=== PATIENT | female | born 1945 | race African-American/Black ===

== ENCOUNTER 2019-06-30 18:15 | Emergency (ER) | payer MEDICARE, MEDICAID ==
[~2019-06-30] VITALS: Ht 165.1 cm; Wt 91.2 kg
--- NOTE | 2019-06-30 18:30 | NUR ---
ED Nurse Note: Patient walked in ED from home accompanied by daughter c/o SOB, productive cough, and diarrhea x4 days. Patient aox4. Patient denies n/v. Placed patient in hospital gown, cont. cardiac tech showing sinus rhythm with HR 98, cont. pulse ox saturating 97% on room air. Exp wheezing noted. Patient denies history of asthma and/or COPD. Patient states she has history of HTN and was a smoker but "quit years ago". ERMD present at bedside.
[2019-06-30 18:36] VITALS: BP 186/75
--- NOTE | 2019-06-30 18:36 | Emergency Room Report ---
History of Present Illness General Chief Complaint: Dyspnea/Respdistress Source: Patient Present Illness HPI Disclaimer: Please note that this report is being documented using [employer] technology. This can lead to erroneous entry secondary to incorrect interpretation by the dictating instrument. HPI: 74-year-old female history of COPD noncompliant with medications, former smoker presents for evaluation of shortness of breath, cough and diarrhea. Symptoms present for 4 days. Notes intermittent chills and sweats but denies objective fevers. Nonproductive cough and progressive worsening shortness of breath. Denies chest pain or vomiting or nausea. Reports watery diarrhea for the past 4 days. Believe she has the flu. Denies myalgias. Did not get a flu shot this year. States she has a diagnosis COPD but does not use any medications or require supplemental oxygen. No longer smoking. No known sick contacts. No other complaints at this time. PMH: COPD, hypertension PSH: Denies Allergies: Denies Social Hx: Former smoker Allergies: Coded Allergies: No Known Allergies (Unverified , 06/30/19) Patient History Last Menstrual Period: na Nursing Documentation-PMH Past Medical History: No History, Except For Hx Hypertension: Yes Review of Systems All Other Systems: negative except mentioned in HPI Physical Exam Vital Signs Date Time Temp Pulse Resp B/P (MAP) Pulse Ox O2 Delivery O2 Flow Rate FiO2 06/30/19 18:16 97.7 98 20 181/90 (120) 93 Room Air General: Awake and alert, no acute distress HEENT: NC/AT. EOMI. Cardiovascular: RRR. S1 and S2 normal. No murmur appreciated Resp: Mild tachypnea. Normal work of breathing. Faint expiratory wheezes at the lower bases bilaterally. Abdomen: Abdomen is soft, nondistended. Nontender Skin: Intact. No abrasions, laceration or rash over the exposed skin MSK: Normal tone and bulk. Moving all extremities. No obvious deformity. No unilateral calf swelling or tenderness. Neuro: Awake and alert. Mentating appropriately. Medical Decision Making Diagnostic Impression: Primary Impression: Pneumonia involving right lung ER Course 74-year-old female presents for evaluation of 4 days cough and diarrhea with worsening shortness of breath. Differential includes was not limited to pneumonia, bronchitis, viral syndrome, influenza, ACS, pneumothorax, COPD exacerbation. Given the duration and symptoms of viral syndrome or influenza are most likely and have little concern for cardiac causes or thrombotic pathology. She arrives with stable vital signs, no hypoxia, no tachycardia, normal respiratory rate and no risk factors or clinical symptoms of DVT. Patient will have an x-ray, given breathing treatments and check screening labs as well as an EKG. do not see indication to test for influenza at this time as the patient is out of the Tamiflu window. Laboratory Tests Test 06/30/19 18:40 White Blood Count 17.2 K/UL (4.8-10.8) H Red Blood Count 4.75 M/UL (4.20-5.40) Hemoglobin 12.5 G/DL (12.0-16.0) Hematocrit 36.9 % (37.0-47.0) L Mean Corpuscular Volume 78 FL (80-99) L Mean Corpuscular Hemoglobin 26.4 PG (27.0-31.0) L Mean Corpuscular Hemoglobin Concent 34.0 G/DL (32.0-36.0) Red Cell Distribution Width 10.5 % (11.6-14.8) L Platelet Count 591 K/UL (150-450) H Mean Platelet Volume 5.0 FL (6.5-10.1) L Neutrophils (%) (Auto) 73.6 % (45.0-75.0) Lymphocytes (%) (Auto) 13.9 % (20.0-45.0) L Monocytes (%) (Auto) 9.6 % (1.0-10.0) Eosinophils (%) (Auto) 0.8 % (0.0-3.0) Basophils (%) (Auto) 2.2 % (0.0-2.0) H Sodium Level 131 MMOL/L (136-145) L Potassium Level 4.4 MMOL/L (3.5-5.1) Chloride Level 93 MMOL/L (98-107) L Carbon Dioxide Level 29 MMOL/L (21-32) Anion Gap 9 mmol/L (5-15) Blood Urea Nitrogen 12 mg/dL (7-18) Creatinine 0.9 MG/DL (0.55-1.30) Estimate Glomerular Filtration Rate mL/min (>60) Glucose Level 119 MG/DL (74-106) H Calcium Level 9.0 MG/DL (8.5-10.1) EKG Diagnostic Results EKG Time: 18:56 Rate: normal Rhythm: NSR ST Segments: no acute changes Other Impression Sinus rhythm, left axis deviation, normal intervals, inferior Q waves. No ST segment changes. Rhythm Strip Diag. Results Rhythm Strip Time: 18:56 EP Interpretation: yes Rate: 90s Rhythm: NSR, no PVC's, no ectopy Chest X-Ray Diagnostic Results Chest X-Ray Diagnostic Results : Chest X-Ray Ordered: Yes # of Views/Limited/Complete: 1 View Indication: Shortness of Breath EP Interpretation: Yes Interpretation: other - Concern for right lower lobe infiltrate and possible effusion. Impression: Other - Right-sided infiltrate concerning for pneumonia Electronically Signed by: Electronically signed by Dr. Demarco Cannon Reevaluation Time: 18:57 Last Vital Signs Date Time Temp Pulse Resp B/P (MAP) Pulse Ox O2 Delivery O2 Flow Rate FiO2 06/30/19 18:16 97.7 98 20 181/90 (120) 93 Room Air Reevaluation Impression EKG is nonischemic. Chest x-ray concerning for right-sided lower lobe infiltrate consistent with a community-acquired pneumonia. Labs show leukocytosis without significant shift. This consistent with community- acquired pneumonia likely after a viral syndrome preceding it. Patient is reporting feeling much better after receiving a DuoNeb treatment. Will give azithromycin in the emergency department today and continue on oral azithromycin for the next 4 days. Also I prescribed her an albuterol inhaler and instructed her to follow-up with her PMD for pulmonary function testing and to discuss whether not she needs to continue that albuterol inhaler for possible COPD. She is well-appearing with stable vital signs and reports improvement. She is afebrile. Stable for outpatient follow-up and treatment. We discussed reasons to return to the emergency department with patient and her daughter who is present at bedside as well as proper dosing of Tylenol and Motrin for aches and pains and proper fluid replacement given her recent diarrhea. She will return to the emergency department any new or worsening symptoms. She understands and agrees with this treatment plan will be discharged home. Disposition: HOME, SELF-CARE Condition: Stable Scripts Albuterol Sulfate* (ALBUTEROL SULFATE MDI*) 8.5 Gm Hfa.aer.ad 2 PUFF INH Q4H PRN for cough/wheezing, #1 EA 0 Refills Prov: Demarco Cannon MD 06/30/19 Azithromycin* (ZITHROMAX*) 250 Mg Tablet 250 MG ORAL DAILY for 4 Days, #4 TAB Prov: Demarco Cannon MD 06/30/19 Demarco Cannon MD Jun 30, 2019 18:36
--- NOTE | 2019-06-30 18:38 | NUR ---
ED Nurse Note: xray at bedside
--- NOTE | 2019-06-30 18:40 | NUR ---
ED Nurse Note: IV access established, patient tolerated well. Blood collected and sent to lab.
[2019-06-30] MEDS: Albuterol/Ipratropium 3ml neb HHN SCH ×3 (18:52→19:19)
--- NOTE | 2019-06-30 18:52 | NUR ---
ED Nurse Note: RT at bedside for breathing treatment.
--- NOTE | 2019-06-30 19:00 | NUR ---
HAND-OFF: Report given to GOLDIE Mcdaniel.
[2019-06-30 19:01] LABS: BASOPHILS % (AUTO) 2.2 % (0.0-2.0); EOSINOPHILS % (AUTO) 0.8 % (0.0-3.0); HEMATOCRIT 36.9 % (37.0-47.0); HEMOGLOBIN 12.5 G/DL (12.0-16.0); LYMPHOCYTES % (AUTO) 13.9 % (20.0-45.0); MEAN CORPUSCULAR VOLUME 78 FL (80-99); MONOCYTES % (AUTO) 9.6 % (1.0-10.0); NEUTROPHILS % (AUTO) 73.6 % (45.0-75.0); PLATELET COUNT 591 K/UL (150-450); RED BLOOD COUNT 4.75 M/UL (4.20-5.40); RED CELL DISTRIBUTION WIDTH 10.5 % (11.6-14.8); WHITE BLOOD COUNT 17.2 K/UL (4.8-10.8)
[2019-06-30] MEDS ORDERED: ZITHROMAX250 MG ORAL (19:13)
[2019-06-30] MEDS ORDERED: ALBUTEROL SULF8.5 GM INH (19:13)
[2019-06-30] MEDS ORDERED: Azithromycin 250mg tab ORAL ONE (19:15)
[2019-06-30 19:19] VITALS: BP 186/75
--- NOTE | 2019-06-30 19:20 | NUR ---
ER DISCHARGE NOTE: Patient is cleared to be discharged per ERMD, pt is aox4, on room air, with stable vital signs. accompanied by family member. pt was given dc and prescription instructions, pt was able to verbalize understanding, pt id band and iv site removed without complications. pt is able to ambulate with steady gait. pt took all belongings.
[2019-06-30 19:21] LABS: ANION GAP 9 mmol/L (5-15); BLOOD UREA NITROGEN 12 mg/dL (7-18); CARBON DIOXIDE 29 MMOL/L (21-32); CHLORIDE 93 MMOL/L (98-107); CREATININE 0.9 MG/DL (0.55-1.30); POTASSIUM 4.4 MMOL/L (3.5-5.1); SODIUM 131 MMOL/L (136-145)
--- NOTE | 2019-07-01 10:10 | Diagnostic Imaging Report ---
Indication: Dyspnea Comparison: None A single view chest radiograph was obtained. Findings: Lung volumes are low. There is suggestion of mild right basal atelectasis possibly a small pleural effusion. Heart size is normal. Bones are unremarkable. IMPRESSION: Slightly ill-defined right hemidiaphragm. Atelectasis/pneumonia or small pleural effusion are considerations
== END 2019-06-30 19:20 | disposition home or self-care (01) ==
LOC: EMR 18:58
DX: J18.1 Lobar pneumonia, unspecified organism (principal); I10 Essential (primary) hypertension; J44.9 Chronic obstructive pulmonary disease, unspecified; Z87.891 Personal history of nicotine dependence
CPT/HCPCS: 36415; 71045; 80048; 85025; 93005; 94640; 99284; J7620

== ENCOUNTER 2019-07-04 23:34 | Inpatient (IN) | payer MEDICARE, MEDICAID ==
[~2019-07-04] VITALS: Ht 165.1 cm; Wt 93.0 kg
[~2019-07-04 23:34] MED LIST: ALBUTEROL SULF8.5 GM INH; ZITHROMAX250 MG ORAL
[2019-07-05] VITALS (8 sets, daily range): BP systolic 140–177; BP diastolic 76–103
--- NOTE | 2019-07-05 00:37 | Emergency Room Report ---
History of Present Illness General Chief Complaint: Abdominal Pain Source: Patient, Family Member, Medical Record Present Illness HPI Is a 74-year-old female with history of hypertension. She was told that she has a history of COPD but not on medication. She presents with chief complaint of abdominal pain with shortness of breath. She was here on Thanksgiving for the similar symptoms. She had abdominal pain with nausea vomiting and diarrhea. She was also short of breath. She had wheezing. Chest x-ray showed a possible right lower lobe consolidation. Wheezing improved after breathing treatment. Patient was discharged home on antibiotics. The diarrhea and vomiting improved. She is now has some abdominal fullness and tenderness. She still felt very weak and tired. Still feels short of breath. Finish her antibiotics today. No relief. Denies any fever chills but denies any chest pain. Worse with exertion. Better with rest. Allergies: Coded Allergies: No Known Allergies (Unverified , 06/30/19) Patient History Past Medical History: see triage record, old chart reviewed, HTN Past Surgical History: none Pertinent Family History: none Social History: Denies: smoking Immunizations: other Reviewed Nursing Documentation: PMH: Agreed; PSxH: Agreed Nursing Documentation-PM Past Medical History: No History, Except For Hx Hypertension: Yes Review of Systems Constitutional: Reports: malaise, weakness Eye: Denies: eye pain, blurred vision ENT: Denies: ear pain, nose congestion, throat swelling Respiratory: Reports: cough, shortness of breath Cardiovascular: Denies: chest pain, palpitations Gastrointestinal: Reports: abdominal pain; Denies: diarrhea, nausea, vomiting Musculoskeletal: Denies: back pain, joint pain Skin: Denies: rash Neurological: Denies: headache, numbness Endocrine: Denies: increased thirst, increased urine Hematologic/Lymphatic: Denies: easy bruising All Other Systems: negative except mentioned in HPI Physical Exam Vital Signs Date Time Temp Pulse Resp B/P (MAP) Pulse Ox O2 Delivery O2 Flow Rate FiO2 07/05/19 00:18 99.3 103 20 177/89 (118) 93 Room Air Vitals with high blood pressure, mild hypoxia Sp02 EP Interpretation: reviewed, abnormal General Appearance: well appearing, alert, mild distress Head: normocephalic, atraumatic Eyes: bilateral eye PERRL, bilateral eye EOMI ENT: hearing grossly normal, normal pharynx Neck: full range of motion, supple, no meningismus Respiratory: chest non-tender, decreased breath sounds, accessory muscle use, wheezing Cardiovascular #1: regular rate, rhythm, no murmur Gastrointestinal: normal bowel sounds, no mass, no organomegaly, no bruit, non- distended, tenderness - Abdominal pain, mild, diffuse Musculoskeletal: back normal, normal range of motion, gait/station normal Psychiatric: mood/affect normal Medical Decision Making Diagnostic Impression: Primary Impression: Pleural effusion, right Additional Impressions: COPD with exacerbation Malignant ascites Acute hyponatremia Abdominal pain Qualified Codes: R10.84 - Generalized abdominal pain UTI (urinary tract infection) Qualified Codes: N30.00 - Acute cystitis without hematuria Proteinuria Qualified Codes: R80.9 - Proteinuria, unspecified Thrombocytosis ER Course Patient presents with respiratory distress and wheezing. This probably secondary to right pleural effusion. Based on the finding of the CT scan of the abdomen with ascites, this is concerning for malignant pleural effusion. Question empyema since patient have a white count. She has no fever however. 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 She does have hyponatremia and thrombocytosis. Is probably related to her malignancy. Clinically, she does not have small bowel obstructions. She is eating drinking without any problem. Will admit for further work-up. I discussed the case with Dr. Adame. EKG Diagnostic Results Rate: normal Rhythm: NSR ST Segments: no acute changes Rhythm Strip Diag. Results Rate: 98 Rhythm: NSR, no PVC's, no ectopy Chest X-Ray Diagnostic Results Chest X-Ray Diagnostic Results : Chest X-Ray Ordered: Yes # of Views/Limited/Complete: 1 View Indication: Shortness of Breath EP Interpretation: Yes Interpretation: no effusion, no pneumothorax, other - rll infiltrate Impression: Other - rll infiltrate Electronically Signed by: Nguyễn Villarreal MD CT/MRI/US Diagnostic Results CT/MRI/US Diagnostic Results : Imaging Test Ordered: CT chest, abdomen and pelvis Impression Read by radiologist. CT chest: Large right pleural effusion. Enlarged right thyroid lobe. CT abdomen pelvis. Finding concerning for peritoneal carcinomatosis. Large amount of ascites. Prominent small bowel in the left abdomen with air-fluid levels. Gallstone. Last Vital Signs Date Time Temp Pulse Resp B/P (MAP) Pulse Ox O2 Delivery O2 Flow Rate FiO2 07/05/19 00:18 99.3 103 20 177/99 (462) 12 Room Air Status: improved Disposition: ADMITTED INPATIENT Condition: Serious Nguyễn Villarreal MD Jul 05, 2019 00:37
[2019-07-05] MEDS ORDERED: Albuterol ud Inhalation HHN ONE ×2 (00:45→02:15)
[2019-07-05] MEDS ORDERED: Ipratropium 0.02% Inh Soln 2.5ml UD HHN ONE (00:45)
[2019-07-05] MEDS ORDERED: Omnipaque-300 100ml vial INJ ONE (00:45)
[2019-07-05 00:49] LABS: HEMATOCRIT 39.1 % (37.0-47.0); HEMOGLOBIN 12.7 G/DL (12.0-16.0); MEAN CORPUSCULAR VOLUME 78 FL (80-99); PLATELET COUNT 875 K/UL (150-450); RED BLOOD COUNT 5.01 M/UL (4.20-5.40); RED CELL DISTRIBUTION WIDTH 11.5 % (11.6-14.8); WHITE BLOOD COUNT 18.3 K/UL (4.8-10.8)
[2019-07-05 01:04] LABS: ANION GAP 11 mmol/L (5-15); BLOOD UREA NITROGEN 9 mg/dL (7-18); CALCIUM 8.9 MG/DL (8.5-10.1); CARBON DIOXIDE 26 MMOL/L (21-32); CHLORIDE 86 MMOL/L (98-107); CREATININE 0.9 MG/DL (0.55-1.30); POTASSIUM 4.7 MMOL/L (3.5-5.1); SODIUM 123 MMOL/L (136-145)
[2019-07-05 01:15] LABS: ALANINE AMINOTRANSFERASE 24 U/L (12-78); ALBUMIN 2.7 G/DL (3.4-5.0); ALBUMIN/GLOBULIN RATIO 0.5 (1.0-2.7); ALKALINE PHOSPHATASE 113 U/L (46-116); ASPARTATE AMINO TRANSFERASE 34 U/L (15-37); BILIRUBIN,TOTAL 0.8 MG/DL (0.2-1.0)
--- NOTE | 2019-07-05 02:36 | Diagnostic Imaging Report ---
CLINICAL INDICATION:Abdominal pain and chest pain for 3 days TECHNIQUE: No oral contrast, per emergency room physician request. IV administration nonionic contrast. Spiral acquisitions obtained through the chest, abdomen, and pelvis. Multiplanar reconstructions were generated. Total dose length product 1409 mGycm. CTDIvol(s) 20 mGy. Radiation dose was minimized using automated exposure control COMPARISON: none FINDINGS Chest: There is a large right pleural effusion. This results in compressive atelectasis of a portion of the right lower lobe. No pleural fluid is demonstrated on the left. There is some scarring or atelectasis at the left lung base. The lungs are otherwise clear. The heart size is normal. No pericardial effusion. Abundant upper anterior mediastinal nodes are demonstrated, prominent but not frankly pathologically enlarged. There is marked enlargement of the right thyroid lobe. No axillary or chest wall mass or adenopathy. Abdomen pelvis: There is free intraperitoneal fluid. There is what appears to be infiltration of the omental fat by tumor, although some of this could be unopacified small bowel. The liver demonstrates questionable surface nodularity. No focal abnormality. There is a gallstone. No biliary ductal dilatation. The pancreas, spleen, adrenals, kidneys are unremarkable. No retroperitoneal or mesenteric mass or adenopathy. No pelvic mass or adenopathy. The uterus and ovaries appear unremarkable. The uterus is retroverted What is probably a normal appendix is visualized. Proximal small bowel loops are fluid-filled and mildly dilated. Distal small bowel loops are nondilated. Transition point is not definitely identified. No free intraperitoneal gas. No definite evidence of diverticulosis or diverticulitis. Distal esophagus, stomach, duodenum are unremarkable. A calcification is seen in the right lower quadrant versus dense material within the colonic lumen. There are degenerative changes of both hips. The bones are otherwise unremarkable. Except for mild degenerative changes of lower lumbar spine. IMPRESSION: Abdominal ascites. Suspect infiltration of the omentum by soft tissue, worrisome for peritoneal carcinomatosis Equivocal hepatic surface nodularity, could indicate early cirrhotic change if real. Ultrasound may be useful for further evaluation Bile is dilated fluid-filled proximal small bowel loops, nondilated distal small bowel. This could indicate small bowel obstruction Large right pleural effusion. Resultant compressive atelectasis of portion of the right lower lobe Left basilar scarring or atelectasis Enlarged right thyroid lobe. Consider sonography for further evaluation Cholelithiasis. This agrees with the preliminary interpretation provided overnight by [facility]erad[facility] service. The CT scanner at [facility] is accredited by the [employer] and the scans are performed using protocols designed to limit radiation exposure to as low as reasonably achievable to attain images of sufficient resolution adequate for diagnostic evaluation.
[2019-07-05 02:49] LABS: BILIRUBIN, URINE NEGATIVE (NEGATIVE); COLOR,URINE PALE YELLOW; GLUCOSE, URINE (UA) NEGATIVE (NEGATIVE); KETONES,URINE NEGATIVE (NEGATIVE); NITRITE,URINE NEGATIVE (NEGATIVE); PH,URINE 5 (4.5-8.0); PROTEIN,URINE 2+ (NEGATIVE); UROBILINOGEN,URINE NORMAL MG/DL (0.0-1.0)
[2019-07-05 03:03] LABS: APPEARANCE,URINE SLIGHTLY CLOUDY; LEUKOCYTE ESTERASE ,URINE 2+ (NEGATIVE)
--- NOTE | 2019-07-05 09:46 | Diagnostic Imaging Report ---
Indication: Reason For Exam: SOB Technique: One view of the chest Comparison: 06/30/2019 Findings: Hazy opacity at the right lung base likely reflects large pleural effusion described on subsequent CT scan. The left hemidiaphragm is elevated. The lungs are otherwise clear. Patient is rotated to the left. The heart is upper limits normal in size Impression: Hazy right lung opacity, consistent with large pleural effusion described on subsequent CT scan
--- NOTE | 2019-07-05 10:51 | Consultation ---
History of Present Illness General Date patient seen: Jul 05, 2019 Chief Complaint: Abdominal Pain Present Illness HPI 74 y/o F with hx of HTN, COPD presented to ED on 07/04 with abd pain, SOB, nausea , vomiting and diarrhea. CXR showed possible RLL consolidation. Had wheezing on presentation. OF note, patient was seen in ED on 06/30 with similar symptoms and she was discharged with Z-pack with improvement on diarrhea and vomiting but persistent SOB, weakness. She finished antibiotic on day of admission. Denied f/c, chest pain. Allergies: Coded Allergies: No Known Allergies (Unverified , 06/30/19) Medication History Scheduled Azithromycin* (Zithromax*), 250 MG ORAL DAILY Scheduled PRN Albuterol Sulfate* (Albuterol Sulfate Mdi*), 2 PUFF INH Q4H PRN for cough/ wheezing Patient History Healthcare decision maker Resuscitation status Advanced Directive on File Patient History Narrative Pmhx: as above Shx: Denies: smoking Fhx: non contributory Review of Systems All Other Systems: negative except mentioned in HPI Physical Exam Physical Exam Narrative General Appearance: well appearing, alert, mild distress Head: normocephalic, atraumatic Eyes: bilateral eye PERRL, bilateral eye EOMI ENT: hearing grossly normal, normal pharynx Neck: full range of motion, supple, no meningismus Respiratory: chest non-tender, decreased breath sounds, accessory muscle use, wheezing Cardiovascular #1: regular rate, rhythm, no murmur Gastrointestinal: normal bowel sounds, no mass, no organomegaly, no bruit, non- distended, tenderness - Abdominal pain, mild, diffuse Musculoskeletal: back normal, normal range of motion, gait/station normal Psychiatric: mood/affect normal Last 24 Hour Vital Signs Date Time Temp Pulse Resp B/P (MAP) Pulse Ox O2 Delivery O2 Flow Rate FiO2 07/05/19 10:15 98.0 93 19 152/70 98 Nasal Cannula 2.0 07/05/19 09:00 98.2 60 14 147/76 98 Nasal Cannula 2.0 07/05/19 07:10 98.4 83 16 153/76 99 Nasal Cannula 2.0 07/05/19 05:07 98.9 87 16 147/78 97 Nasal Cannula 2.0 07/05/19 02:45 98.8 98 18 152/85 95 Nasal Cannula 2.0 07/05/19 02:29 98 18 96 Room Air 21 97 18 94 07/05/19 00:43 93 20 100 Room Air 21 98 16 98 07/05/19 00:40 99.3 103 20 177/89 93 Room Air 07/05/19 00:40 103 20 Room Air 07/05/19 00:18 99.3 103 20 177/89 (118) 93 Room Air Laboratory Tests Test 07/05/19 00:30 07/05/19 02:10 07/05/19 02:15 White Blood Count 18.3 K/UL (4.8-10.8) H Red Blood Count 5.01 M/UL (4.20-5.40) Hemoglobin 12.7 G/DL (12.0-16.0) Hematocrit 39.1 % (37.0-47.0) Mean Corpuscular Volume 78 FL (80-99) L Mean Corpuscular Hemoglobin 25.4 PG (27.0-31.0) L Mean Corpuscular Hemoglobin Concent 32.5 G/DL (32.0-36.0) Red Cell Distribution Width 11.5 % (11.6-14.8) L Platelet Count 875 K/UL (150-450) H Mean Platelet Volume 4.6 FL (6.5-10.1) L Neutrophils (%) (Auto) % (45.0-75.0) Lymphocytes (%) (Auto) % (20.0-45.0) Monocytes (%) (Auto) % (1.0-10.0) Eosinophils (%) (Auto) % (0.0-3.0) Basophils (%) (Auto) % (0.0-2.0) Differential Total Cells Counted 100 Neutrophils % (Manual) 78 % (45-75) H Lymphocytes % (Manual) 12 % (20-45) L Monocytes % (Manual) 10 % (1-10) Eosinophils % (Manual) 0 % (0-3) Basophils % (Manual) 0 % (0-2) Band Neutrophils 0 % (0-8) Platelet Estimate Increased H Platelet Morphology Normal Sodium Level 123 MMOL/L (136-145) L Potassium Level 4.7 MMOL/L (3.5-5.1) Chloride Level 86 MMOL/L (98-107) L Carbon Dioxide Level 26 MMOL/L (21-32) Anion Gap 11 mmol/L (5-15) Blood Urea Nitrogen 9 mg/dL (7-18) Creatinine 0.9 MG/DL (0.55-1.30) Estimat Glomerular Filtration Rate mL/min (>60) Glucose Level 121 MG/DL (74-106) H Calcium Level 8.9 MG/DL (8.5-10.1) Total Bilirubin 0.8 MG/DL (0.2-1.0) Aspartate Amino Transf (AST/SGOT) 34 U/L (15-37) Alanine Aminotransferase (ALT/SGPT) 24 U/L (12-78) Alkaline Phosphatase 113 U/L (46-116) Troponin I 0.000 ng/mL (0.000-0.056) Pro-B-Type Natriuretic Peptide 224 pg/mL (0-125) H Total Protein 7.7 G/DL (6.4-8.2) Albumin 2.7 G/DL (3.4-5.0) L Globulin 5.0 g/dL Albumin/Globulin Ratio 0.5 (1.0-2.7) L Urine Color Pale yellow Urine Appearance Slightly cloudy Urine pH 5 (4.5-8.0) Urine Specific [place] 1.005 (1.005-1.035) Urine Protein 2+ (NEGATIVE) H Urine Glucose (UA) Negative (NEGATIVE) Urine Ketones Negative (NEGATIVE) Urine Blood 3+ (NEGATIVE) H Urine Nitrite Negative (NEGATIVE) Urine Bilirubin Negative (NEGATIVE) Urine Urobilinogen Normal MG/DL (0.0-1.0) Urine Leukocyte Esterase 2+ (NEGATIVE) H Urine RBC 15-20 /HPF (0 - 2) H Urine WBC 10-15 /HPF (0 - 2) H Urine Squamous Epithelial Cells Moderate /LPF (NONE/OCC) H Urine Bacteria Moderate /HPF (NONE) H Lactic Acid Level 1.30 mmol/L (0.4-2.0) Height (Feet): 5 Height (Inches): 5.00 Weight (Pounds): 170 Medications Current Medications Medications (Trade) Dose Ordered Sig/Tiffani Route PRN Reason Start Time Stop Time Status Last Admin Dose Admin Dextrose (Dextrose 50%) 25 ml Q30M PRN IV Hypoglycemia 07/05/19 10:15 08/04/19 10:14 Dextrose (Dextrose 50%) 50 ml Q30M PRN IV Hypoglycemia 07/05/19 10:15 08/04/19 10:14 Furosemide (Lasix) 40 mg DAILY IV 07/05/19 11:00 08/04/19 10:59 Heparin Sodium (Porcine) (Heparin 5000 units/ml) 5,000 units EVERY 12 HOURS SUBQ 07/05/19 21:00 08/04/19 20:59 Ondansetron HCl (Zofran) 4 mg Q6H PRN IVP Nausea & Vomiting 07/05/19 10:15 08/04/19 10:14 Assessment/Plan Assessment/Plan: Abx: Levaquin x1 07/05 Assessment: Sepsis Afebrile Leukocytosis- ?reactive vs infectious process- r/o intraabdominal infection, parapneunomic pleural effusion Abd pain, vomiting, diarrhea- ?peritoneal carcinomatosis -CT c/abd/p: Abdominal ascites. Suspect infiltration of the omentum by soft tissue, worrisome for peritoneal carcinomatosis. Equivocal hepatic surface nodularity, could indicate early cirrhotic change if real. Ultrasound may be useful for further evaluation. Bile is dilated fluid-filled proximal small bowel loops, nondilated distal small bowel. This could indicate small bowel obstruction. Large right pleural effusion. Resultant compressive atelectasis of portion of the right lower lobe. Left basilar scarring or atelectasis. Enlarged right thyroid lobe. Consider sonography for further evaluation. Cholelithiasis. Large R pleural effusion- ?malignant HTN COPD Plan: -Start empiric Ceftriaxone and Flagyl -f/u cx -Monitor CBC/CMP, temperatures -Cdiff, stool cx, Influenza sc -Will need Thoracentesis -send for fluid analysis and culture -aspiration precautions Thank you for conulting [facility]. Will continue to follow along with you. Discussed with GOLDIE. Fartun Milton M.D. Jul 05, 2019 10:51
[2019-07-05] MEDS: cefTRIAXone 1 GM in D5W 55 ML IVPB SCH (12:00)
--- NOTE | 2019-07-05 13:03 | Cardiology Report ---
APPROVED REPORT EKG Measurement Heart [id number] Normal sinus rhythm Left axis deviation Septal infarct, age undetermined Abnormal ECG
[2019-07-05 13:05] LABS: INR 1.1 (0.9-1.1)
[2019-07-05] MEDS: metroNIDAZOLE 500mg tab ORAL SCH ×2 (13:34→21:39)
--- NOTE | 2019-07-05 15:15 | History and Physical Report ---
DATE OF ADMISSION: 07/05/2019 REASON FOR ADMISSION: 1. Abdominal pain. 2. Shortness of breath. HISTORY OF PRESENT ILLNESS: The patient is a 74-year-old female with known hypertension, COPD on medications, presenting emergency room overnight for further evaluation and care of shortness of breath and abdominal pain. The patient has been seen in this emergency room [facility] during and was discharged on p.o. antibiotic. She now returns again with worsening abdominal pain and shortness of breath. The patient underwent a CT of the abdomen and pelvis with IV contrast, which demonstrated abdominal ascites and suspected infiltration in the omentum by soft tissue, worrisome for peritoneal carcinomatosis with equivocal hepatic surface nodularity, cirrhotic change possibility with a large right pleural effusion, compressive atelectasis portion of the right lower lobe as such she is being admitted for further evaluation and care of possible malignant ascites with right pleural effusion. ALLERGIES: No known drug allergies. PAST MEDICAL HISTORY: 1. Hypertension. 2. COPD. PAST SURGICAL HISTORY: None. FAMILY HISTORY: Noncontributory. SOCIAL HISTORY: No current tobacco, alcohol, illicit drug use. REVIEW OF SYSTEMS: NEUROLOGIC: The patient denies headache, change in vision, syncope, presyncopal episodes. CARDIOVASCULAR: No current chest pain, palpitations, or angina. PULMONARY: Does have shortness of breath. No cough. GASTROINTESTINAL/GENITOURINARY: No changes in urinary or bowel habits. She is having nausea but no vomiting. ENDOCRINOLOGY: No night sweats, fevers or chills. MUSCULOSKELETAL: The patient feeling weak, tired, and fatigue. LABORATORY AND DIAGNOSTIC DATA: Labs dated July 05, 2019, white cell count 18.3, hemoglobin 12.7, and platelet count 875. Sodium 123, creatinine 0.9, potassium 4.7. PHYSICAL EXAMINATION: VITAL SIGNS: Blood pressure 147/76, respiratory rate 14, pulse 60, temperature 98.2, and 90% oxygen saturation on 2 liters. GENERAL: The patient awake, alert, in no overt distress. HEENT: Extraocular muscles intact. No lymphadenopathy. Oropharyngeal is clear and dry. CARDIOVASCULAR: S1, S2. No rubs or gallops. PULMONARY: Decreased breath sounds right middle to lower lobe. ABDOMINAL: Obese and nondistended. EXTREMITIES: Trace edema bilaterally. ASSESSMENT AND PLAN: 1. Hyponatremia at this time, most likely secondary to cirrhosis/with malignant ascites. We will initiate intravenous diuretics with Lasix and place her on p.o. fluid restriction. If hyponatremia does not improve, we will conduct a full hyponatremic workup, but at this time hyponatremia is most likely secondary to component of volume overload due to cirrhosis. 2. Shortness of breath secondary to large right-sided pleural effusion with compressive atelectasis, most likely malignant in nature. I have consulted Pulmonary for further evaluation and management. 3. Abdominal pain with possible carcinomatosis and malignant ascites. Gastroenterology to evaluate. 4. Leukocytosis with unclear etiology. Infectious Diseases to follow. 5. GI prophylaxis with famotidine. 6. DVT prophylaxis with heparin subcutaneous. Ty Schaefer MD DR: Makayla JOB#: [id number] CC:
--- NOTE | 2019-07-05 15:16 | Pre-Procedure Note/Attestation ---
Pre-Procedure Note/Attestation Complete Prior to Procedure Planned Procedure: right Procedure Narrative: Thoracentesis Indications for Procedure Pre-Operative Diagnosis: pleural effusion Attestation I attest that I discussed the nature of the procedure; its benefits; risks and complications; and alternatives (and the risks and benefits of such alternatives ), prior to the procedure, with the patient (or the patient's legal medical field representative). I attest that, if there was a reasonable possibility of needing a blood transfusion, the patient (or the patient's legal medical field representative) was given the [facility] standardized written summary, pursuant to the [place] Blood Safety Act ([place] Health and Safety Code # 1645, as amended). I attest that I re-evaluated the patient just prior to the surgery and that there has been no change in the patient's H&P, except as documented below: Adarsh Iglesias MD Jul 05, 2019 15:16
--- NOTE | 2019-07-05 15:18 | Brief Operative Note ---
Immediate Post Operative Note Operative Note Pre-op Diagnosis: pleural effusion Procedure: Thoracentesis Post-op Diagnosis: same as pre-op Surgeon: Sol Rosas Anesthesia: local Specimen: yes - 50 ml fluid sent to lab Complications: none Fluids: none Implant(s) used?: No Adarsh Rosas MD Jul 05, 2019 15:18
--- NOTE | 2019-07-05 15:22 | Diagnostic Imaging Report ---
Indication: Status post thoracentesis Technique: One view of the chest Comparison: 14 hours earlier Findings: Interim resolution of previously demonstrated right pleural effusion. No pneumothorax demonstrated. Atelectatic changes are seen at both lung bases. The lungs and pleural spaces are currently clear otherwise. Impression: Resolved right pleural effusion, status post thoracentesis. No radiographically evident complication
--- NOTE | 2019-07-05 15:23 | Diagnostic Imaging Report ---
Indications: Pleural effusion Technique: Ultrasound used to localize optimal puncture site. Sterile prepping and draping chest. Local anesthesia with 1% lidocaine. Under real-time ultrasound guidance, puncture pleural space using thoracentesis needle. Stylet removed. Catheter placed to vacuum bottle suction. Total 600 milliliters of cloudy yellow fluid aspirated. Patient tolerated procedure well, without immediate complication. Findings: Followup sonography demonstrates complete resolution of pleural fluid. Impression: Successful ultrasound-guided thoracentesis, yielding 600 milliliters of fluid
--- NOTE | 2019-07-05 16:45 | Consultation ---
DATE OF CONSULTATION: 07/05/2019 PULMONARY CONSULTATION CONSULTING PHYSICIAN: Sina Metcalf M.D. REFERRING PHYSICIAN: Ty Schaefer M.D. HISTORY OF PRESENT ILLNESS: This is a 74-year-old female with history of hypertension and COPD, who came to the hospital with shortness of breath. She also reports nausea, vomiting, and diarrhea. X-ray of chest was done, which showed a large right pleural effusion, this was confirmed on chest CT as well. The patient reports that she has been sick for about a week and has been taking azithromycin. PAST MEDICAL HISTORY: Notable for hypertension, COPD. PAST SURGICAL HISTORY: None reported. REVIEW OF SYSTEMS: She denies any headaches, hematemesis, melena, or hematochezia. . She admits having cough, shortness of breath, and abdominal pain. PHYSICAL EXAMINATION: GENERAL: Reveals an obese female. HEENT: Unremarkable. VITAL SIGNS: Blood pressure is 170/80, heart rate 104, respirations 20, she is afebrile now, but T-max of 99.3, O2 saturation 93% on low-flow oxygen. CHEST: Showed decreased breath sounds on right base. ABDOMEN: Soft. EXTREMITIES: There is no edema. NEUROLOGIC: Nonfocal. IMAGING STUDY: As discussed above. LABORATORY DATA: Lab testing shows white count 11836 with left shift. Sodium 123, glucose 121, proBNP 224. IMPRESSION: 1. Right lung pneumonia. 2. Right pleural effusion. 3. Hyponatremia. 4. Hyperglycemia. 5. Hypertension. 6. COPD. DISCUSSION: We will admit to the hospital. Agree with current management and care. The patient will need broad-spectrum antibiotics and I note that she has been started on Flagyl and Levaquin. Agree with breathing treatments and oxygen. We will order . We will follow carefully. Sina Metcalf M.D. : HARLAN JOB#: [id number] CC:
[2019-07-05] MEDS: Heparin 5000 units/ml inj SUBQ SCH (21:41)
[2019-07-06] VITALS: BP 165/100
[2019-07-06 04:00] VITALS: BP 182/99
[2019-07-06] MEDS: metroNIDAZOLE 500mg tab ORAL SCH ×3 (05:57→21:31)
[2019-07-06 08:00] VITALS: BP 162/98
--- NOTE | 2019-07-06 08:09 | Nephrology Progress Note ---
Assessment/Plan Assessment/Plan: A/P 1. 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 - lasix - am labs pending 2. Shortness of breath secondary to large right-sided pleural effusion with compressive atelectasis, most likely malignant in nature. - s/p 600 ml thoracentesis 3. Abdominal pain with possible carcinomatosis and malignant ascites. - paracentesis today 4. Leukocytosis with unclear etiology. Infectious Diseases to follow. - emperic Abx initiated 5. GI prophylaxis with famotidine. 6. DVT prophylaxis with heparin subcutaneous. Subjective Date patient seen: Jul 06, 2019 Time patient seen: 08:06 ROS Limited/Unobtainable: No Allergies: Coded Allergies: No Known Allergies (Unverified , 06/30/19) Subjective Patient still SOB. Paracentesis planned for today Objective Last 24 Hour Vital Signs Date Time Temp Pulse Resp B/P (MAP) Pulse Ox O2 Delivery O2 Flow Rate FiO2 07/06/19 04:00 98 07/06/19 04:00 99.0 105 20 182/99 (126) 96 07/06/19 00:00 104 07/06/19 00:00 99.2 105 20 165/100 (121) 95 07/05/19 21:00 Nasal Cannula 2.0 07/05/19 20:00 97.5 114 22 175/98 (123) 97 07/05/19 20:00 98 07/05/19 15:56 101 07/05/19 15:45 Nasal Cannula 2.0 07/05/19 15:35 98.0 106 20 140/103 (115) 98 07/05/19 10:30 98.0 110 20 147/79 (101) 98 07/05/19 10:15 98.0 93 19 152/70 98 Nasal Cannula 2.0 07/05/19 09:00 98.2 60 14 147/76 98 Nasal Cannula 2.0 21 Intake and Output 07/05/19 07/06/19 19:00 07:00 Intake Total 230 ml Balance 230 ml Intake Oral 120 ml IV Total 110 ml # Voids 1 2 # Bowel Movements 1 Laboratory Tests 07/05/19 12:30: Prothrombin Time 11.6H, Prothromb Time International Ratio 1.1, Activated Partial Thromboplast Time 33 07/05/19 15:30: Body Fluid pH 7.5, Body Fluid Glucose [Pending], Body Fluid Total Protein [ Pending], Body Fluid Lactate Dehydrogenase [Pending] Height (Feet): 5 Height (Inches): 5.00 Weight (Pounds): 205 General Appearance: mild distress EENT: normal ENT inspection Neck: normal alignment, supple Cardiovascular: normal rate, regular rhythm Respiratory/Chest: rhonchi - bilaterally, expiratory wheezing Abdomen: non tender, soft, distended Edema: no edema noted Arm (L), no edema noted Arm (R), no edema noted Leg (L), no edema noted Leg (R), no edema noted Pedal (L), no edema noted Pedal (R), no edema noted Generalized Ty Schaefer MD Jul 06, 2019 08:09
[2019-07-06 08:11] LABS: HEMATOCRIT 39.3 % (37.0-47.0); HEMOGLOBIN 12.6 G/DL (12.0-16.0); MEAN CORPUSCULAR VOLUME 79 FL (80-99); PLATELET COUNT 915 K/UL (150-450); RED BLOOD COUNT 5.01 M/UL (4.20-5.40); RED CELL DISTRIBUTION WIDTH 11.6 % (11.6-14.8); WHITE BLOOD COUNT 19.8 K/UL (4.8-10.8)
[2019-07-06] MEDS ORDERED: HydrALAZINE 25mg tab ORAL PRN (08:30)
[2019-07-06] MEDS: Heparin 5000 units/ml inj SUBQ SCH ×2 (09:00→21:31)
[2019-07-06] MEDS: Carvedilol 6.25mg Tab ORAL SCH ×2 (09:03→21:31)
--- NOTE | 2019-07-06 09:20 | Pulmonology Progress Note ---
Assessment/Plan Assessment/Plan IMPRESSION: 1. Right lung pneumonia. 2. Right pleural effusion. 3. Hyponatremia. 4. Hyperglycemia. 5. Hypertension. 6. COPD. DISCUSSION: Continue Flagyl and Levaquin. Agree with breathing treatments and oxygen. I will follow carefully. S/p thoracentesis For paracentesis today Sina Metcalf M.D. Subjective Interval Events: S/p thoracentesis Constitutional: Reports: no symptoms HEENT: Repors: no symptoms Respiratory: Reports: shortness of breath Cardiovascular: Reports: no symptoms Gastrointestinal/Abdominal: Reports: no symptoms Allergies: Coded Allergies: No Known Allergies (Unverified , 06/30/19) Objective Last 24 Hour Vital Signs Date Time Temp Pulse Resp B/P (MAP) Pulse Ox O2 Delivery O2 Flow Rate FiO2 07/06/19 09:03 107 162/98 07/06/19 08:00 97.4 107 20 162/98 (119) 97 07/06/19 04:00 98 07/06/19 04:00 99.0 105 20 182/99 (126) 96 07/06/19 00:00 104 07/06/19 00:00 99.2 105 20 165/100 (121) 95 07/05/19 21:00 Nasal Cannula 2.0 07/05/19 20:00 97.5 114 22 175/98 (123) 97 07/05/19 20:00 98 07/05/19 15:56 101 07/05/19 15:45 Nasal Cannula 2.0 07/05/19 15:35 98.0 106 20 140/103 (115) 98 07/05/19 10:30 98.0 110 20 147/79 (101) 98 07/05/19 10:15 98.0 93 19 152/70 98 Nasal Cannula 2.0 Intake and Output 07/05/19 07/06/19 19:00 07:00 Intake Total 230 ml Balance 230 ml Intake Oral 120 ml IV Total 110 ml # Voids 1 2 # Bowel Movements 1 General Appearance: no acute distress HEENT: normocephalic Respiratory/Chest: decreased breath sounds Cardiovascular: normal peripheral pulses, normal rate Microbiology Date/Time Source Procedure Growth Status 07/05/19 02:20 Blood Blood Culture - Preliminary NO GROWTH AFTER 24 HOURS Resulted 07/05/19 02:15 Blood Blood Culture - Preliminary NO GROWTH AFTER 24 HOURS Resulted 07/05/19 02:10 Urine,Clean Catch Urine Culture - Preliminary Resulted Laboratory Tests 07/05/19 12:30: Prothrombin Time 11.6H, Prothromb Time International Ratio 1.1, Activated Partial Thromboplast Time 33 07/05/19 15:30: Body Fluid pH 7.5, Body Fluid Glucose [Pending], Body Fluid Total Protein [ Pending], Body Fluid Lactate Dehydrogenase [Pending] 07/06/19 07:10: White Blood Count 19.8H, Red Blood Count 5.01, Hemoglobin 12.6, Hematocrit 39.3 , Mean Corpuscular Volume 79L, Mean Corpuscular Hemoglobin 25.1L, Mean Corpuscular Hemoglobin Concent 32.0, Red Cell Distribution Width 11.6, Platelet Count 915H, Mean Platelet Volume 4.2L, Neutrophils (%) (Auto) , Lymphocytes (%) (Auto) , Monocytes (%) (Auto) , Eosinophils (%) (Auto) , Basophils (%) (Auto) , Neutrophils % (Manual) [Pending], Lymphocytes % (Manual) [Pending], Platelet Estimate [Pending], Platelet Morphology [Pending], Sodium Level [Pending], Potassium Level [Pending], Chloride Level [Pending], Carbon Dioxide Level [ Pending], Blood Urea Nitrogen [Pending], Creatinine [Pending], Estimat Glomerular Filtration Rate [Pending], Glucose Level [Pending], Calcium Level [ Pending], Lactate Dehydrogenase 222 Current Medications Medications (Trade) Dose Ordered Sig/Tiffani Route PRN Reason Start Time Stop Time Status Last Admin Dose Admin Carvedilol (Coreg) 6.25 mg EVERY 12 HOURS ORAL 07/06/19 09:00 08/05/19 08:59 07/06/19 09:03 Ceftriaxone Sodium 1 gm/ Dextrose 55 ml @ 110 mls/hr Q24H IVPB 07/05/19 12:00 07/12/19 11:59 07/05/19 12:00 Dextrose (Dextrose 50%) 25 ml Q30M PRN IV Hypoglycemia 07/05/19 10:15 08/04/19 10:14 Dextrose (Dextrose 50%) 50 ml Q30M PRN IV Hypoglycemia 07/05/19 10:15 08/04/19 10:14 Furosemide (Lasix) 40 mg DAILY IV 07/05/19 11:00 08/04/19 10:59 07/06/19 09:03 Heparin Sodium (Porcine) (Heparin 5000 units/ml) 5,000 units EVERY 12 HOURS SUBQ 07/05/19 21:00 08/04/19 20:59 07/05/19 21:41 Hydralazine HCl (Apresoline) 25 mg Q6H PRN ORAL For High Blood Pressure 07/06/19 08:30 08/05/19 08:29 Metronidazole (Flagyl) 500 mg Q8HR ORAL 07/05/19 14:00 07/12/19 13:59 07/06/19 05:57 Ondansetron HCl (Zofran) 4 mg Q6H PRN IVP Nausea & Vomiting 07/05/19 10:15 08/04/19 10:14 07/05/19 22:08 Sina Metcalf MD Jul 06, 2019 09:20
[2019-07-06 09:24] LABS: ANION GAP 11 mmol/L (5-15); BLOOD UREA NITROGEN 14 mg/dL (7-18); CARBON DIOXIDE 26 MMOL/L (21-32); CHLORIDE 84 MMOL/L (98-107); CREATININE 1.1 MG/DL (0.55-1.30); POTASSIUM 5.8 MMOL/L (3.5-5.1); SODIUM 121 MMOL/L (136-145)
[2019-07-06 12:00] VITALS: BP 166/93
[2019-07-06] MEDS: cefTRIAXone 1 GM in D5W 55 ML IVPB SCH (12:32)
--- NOTE | 2019-07-06 12:46 | Infectious Diseases Prog Note ---
Assessment/Plan Assessment/Plan Assessment: Sepsis vs SIRS Afebrile Leukocytosis- ?reactive vs infectious process- r/o intraabdominal infection, parapneunomic pleural effusion Abd pain, vomiting, diarrhea- ?peritoneal carcinomatosis -CT c/abd/p: Abdominal ascites. Suspect infiltration of the omentum by soft tissue, worrisome for peritoneal carcinomatosis. Equivocal hepatic surface nodularity, could indicate early cirrhotic change if real. Ultrasound may be useful for further evaluation. Bile is dilated fluid-filled proximal small bowel loops, nondilated distal small bowel. This could indicate small bowel obstruction. Large right pleural effusion. Resultant compressive atelectasis of portion of the right lower lobe. Left basilar scarring or atelectasis. Enlarged right thyroid lobe. Consider sonography for further evaluation. Cholelithiasis. Large R pleural effusion; exudative- ?malignant -07/05 CXR: Resolved right pleural effusion, status post thoracentesis. No radiographically evident complication -07/05 SP R thoracentesis: removal of 600 milliliters of fluid --LDH 299 (serum 222), protein 4.9 (serum 7.7), pH 7.5, glucose 59; cx NTD HTN COPD Plan: -cont empiric Ceftriaxone and Flagyl #2 -07/05 SP Levaquin x1 -f/u cx -Monitor CBC/CMP, temperatures -f/u Cdiff, stool cx, Influenza sc -aspiration precautions Thank you for conulting [facility]. Will continue to follow along with you. Discussed with RN. Subjective Allergies: Coded Allergies: No Known Allergies (Unverified , 06/30/19) Subjective afebrile wbc increased Objective Vital Signs Last 24 Hour Vital Signs Date Time Temp Pulse Resp B/P (MAP) Pulse Ox O2 Delivery O2 Flow Rate FiO2 07/06/19 09:03 107 162/98 07/06/19 09:00 Nasal Cannula 2.0 07/06/19 08:00 110 07/06/19 08:00 97.4 107 20 162/98 (119) 97 07/06/19 04:00 98 07/06/19 04:00 99.0 105 20 182/99 (126) 96 07/06/19 00:00 104 07/06/19 00:00 99.2 105 20 165/100 (121) 95 07/05/19 21:00 Nasal Cannula 2.0 07/05/19 20:00 97.5 114 22 175/98 (123) 97 07/05/19 20:00 98 07/05/19 15:56 101 07/05/19 15:45 Nasal Cannula 2.0 07/05/19 15:35 98.0 106 20 140/103 (115) 98 Height (Feet): 5 Height (Inches): 5.00 Weight (Pounds): 205 Objective General Appearance: well appearing, alert, mild distress Head: normocephalic, atraumatic Eyes: bilateral eye PERRL, bilateral eye EOMI ENT: hearing grossly normal, normal pharynx Neck: full range of motion, supple, no meningismus Respiratory: chest non-tender, decreased breath sounds, accessory muscle use, wheezing Cardiovascular #1: regular rate, rhythm, no murmur Gastrointestinal: normal bowel sounds, no mass, no organomegaly, no bruit, non- distended, tenderness - Abdominal pain, mild, diffuse Musculoskeletal: back normal, normal range of motion, gait/station normal Psychiatric: mood/affect normal Microbiology Date/Time Source Procedure Growth Status 07/05/19 02:20 Blood Blood Culture - Preliminary NO GROWTH AFTER 24 HOURS Resulted 07/05/19 02:15 Blood Blood Culture - Preliminary NO GROWTH AFTER 24 HOURS Resulted 07/05/19 15:30 Pleural Fluid Gram Stain Pending Resulted 07/05/19 15:30 Pleural Fluid Body Fluid Culture - Preliminary NO GROWTH Resulted 07/05/19 02:10 Urine,Clean Catch Urine Culture - Preliminary Resulted Laboratory Tests Test 07/05/19 15:30 07/06/19 07:10 Body Fluid pH 7.5 Body Fluid Glucose 59 mg/dL (.) Body Fluid Total Protein 4.9 g/dL (.) Body Fluid Lactate Dehydrogenase 299 IU/L (.) White Blood Count 19.8 K/UL (4.8-10.8) H Red Blood Count 5.01 M/UL (4.20-5.40) Hemoglobin 12.6 G/DL (12.0-16.0) Hematocrit 39.3 % (37.0-47.0) Mean Corpuscular Volume 79 FL (80-99) L Mean Corpuscular Hemoglobin 25.1 PG (27.0-31.0) L Mean Corpuscular Hemoglobin Concent 32.0 G/DL (32.0-36.0) Red Cell Distribution Width 11.6 % (11.6-14.8) Platelet Count 915 K/UL (150-450) H Mean Platelet Volume 4.2 FL (6.5-10.1) L Neutrophils (%) (Auto) % (45.0-75.0) Lymphocytes (%) (Auto) % (20.0-45.0) Monocytes (%) (Auto) % (1.0-10.0) Eosinophils (%) (Auto) % (0.0-3.0) Basophils (%) (Auto) % (0.0-2.0) Differential Total Cells Counted 100 Neutrophils % (Manual) 87 % (45-75) H Lymphocytes % (Manual) 4 % (20-45) L Monocytes % (Manual) 9 % (1-10) Eosinophils % (Manual) 0 % (0-3) Basophils % (Manual) 0 % (0-2) Band Neutrophils 0 % (0-8) Platelet Estimate Increased H Platelet Morphology Normal Red Blood Cell Morphology Normal Sodium Level 121 MMOL/L (136-145) L Potassium Level 5.8 MMOL/L (3.5-5.1) H Chloride Level 84 MMOL/L (98-107) L Carbon Dioxide Level 26 MMOL/L (21-32) Anion Gap 11 mmol/L (5-15) Blood Urea Nitrogen 14 mg/dL (7-18) Creatinine 1.1 MG/DL (0.55-1.30) Estimat Glomerular Filtration Rate mL/min (>60) Glucose Level 89 MG/DL (74-106) Calcium Level 9.0 MG/DL (8.5-10.1) Lactate Dehydrogenase 222 U/L (81-234) Current Medications Medications (Trade) Dose Ordered Sig/Tiffani Route PRN Reason Start Time Stop Time Status Last Admin Dose Admin Carvedilol (Coreg) 6.25 mg EVERY 12 HOURS ORAL 07/06/19 09:00 08/05/19 08:59 07/06/19 09:03 Ceftriaxone Sodium 1 gm/ Dextrose 55 ml @ 110 mls/hr Q24H IVPB 07/05/19 12:00 07/12/19 11:59 07/06/19 12:32 Dextrose (Dextrose 50%) 25 ml Q30M PRN IV Hypoglycemia 07/05/19 10:15 08/04/19 10:14 Dextrose (Dextrose 50%) 50 ml Q30M PRN IV Hypoglycemia 07/05/19 10:15 08/04/19 10:14 Furosemide (Lasix) 40 mg DAILY IV 07/05/19 11:00 08/04/19 10:59 07/06/19 09:03 Heparin Sodium (Porcine) (Heparin 5000 units/ml) 5,000 units EVERY 12 HOURS SUBQ 07/05/19 21:00 08/04/19 20:59 07/05/19 21:41 Hydralazine HCl (Apresoline) 25 mg Q6H PRN ORAL For High Blood Pressure 07/06/19 08:30 08/05/19 08:29 Metronidazole (Flagyl) 500 mg Q8HR ORAL 07/05/19 14:00 07/12/19 13:59 07/06/19 05:57 Ondansetron HCl (Zofran) 4 mg Q6H PRN IVP Nausea & Vomiting 07/05/19 10:15 08/04/19 10:14 07/05/19 22:08 Fartun Milton M.D. Jul 06, 2019 12:46
--- NOTE | 2019-07-06 15:02 | Diagnostic Imaging Report ---
Indications: Ascites Procedure: Informed consent obtained. Ultrasound used to localize optimal puncture site. Sterile prepping and draping over the optimum site. Local anesthesia with 1% lidocaine. Under real-time ultrasound guidance, puncture of the peritoneal space performed using paracentesis needle. Digital image was saved and archived. Stylet removed. Catheter placed to vacuum bottle suction. Fluid was aspirated. Patient tolerated procedure well, without immediate complication. Diagnostic paracentesis was performed with fluid sent for studies as requested. Findings: Followup sonography demonstrates complete resolution of peritoneal fluid Impression: Successful ultrasound-guided paracentesis, yielding 3.35 liters of fluid
[2019-07-06 16:00] VITALS: BP 161/86
[2019-07-06 20:00] VITALS: BP 155/74
[2019-07-06] MEDS ORDERED: Albuterol/Ipratropium 3ml neb HHN PRN (20:00)
[2019-07-06] MEDS: Morphine Sulfate 2mg/ml Inj(IV/IM USE ONLY) IVP PRN (21:33)
--- NOTE | 2019-07-06 23:04 | General Progress Note ---
Assessment/Plan Assessment/Plan: Assessment - Ascites, r/o malignant / peritoneal carcinomatosis - COPD - nodular liver, r/o cirrhosis - N/V/D Recommendations - paracentesis - check fluid cytology - check tumor markers - check hepatitis serologies - check stool tests Thank you Bhavana West MD Subjective Allergies: Coded Allergies: No Known Allergies (Unverified , 06/30/19) Objective Last 24 Hour Vital Signs Date Time Temp Pulse Resp B/P (MAP) Pulse Ox O2 Delivery O2 Flow Rate FiO2 07/06/19 21:31 87 161/86 07/06/19 20:35 87 22 95 Nasal Cannula 2.0 28 07/06/19 16:00 97 07/06/19 16:00 96.7 89 20 161/86 (111) 95 07/06/19 12:00 97.2 84 18 166/93 (117) 97 07/06/19 12:00 84 07/06/19 09:03 107 162/98 07/06/19 09:00 Nasal Cannula 2.0 07/06/19 08:00 110 07/06/19 08:00 97.4 107 20 162/98 (119) 97 07/06/19 04:00 98 07/06/19 04:00 99.0 105 20 182/99 (126) 96 07/06/19 00:00 104 07/06/19 00:00 99.2 105 20 165/100 (121) 95 Intake and Output 07/05/19 07/06/19 19:00 07:00 Intake Total 230 ml Balance 230 ml Intake Oral 120 ml IV Total 110 ml # Voids 1 2 # Bowel Movements 1 Laboratory Tests 07/06/19 07:10: White Blood Count 19.8H, Red Blood Count 5.01, Hemoglobin 12.6, Hematocrit 39.3 , Mean Corpuscular Volume 79L, Mean Corpuscular Hemoglobin 25.1L, Mean Corpuscular Hemoglobin Concent 32.0, Red Cell Distribution Width 11.6, Platelet Count 915H, Mean Platelet Volume 4.2L, Neutrophils (%) (Auto) , Lymphocytes (%) (Auto) , Monocytes (%) (Auto) , Eosinophils (%) (Auto) , Basophils (%) (Auto) , Differential Total Cells Counted 100, Neutrophils % (Manual) 87H, Lymphocytes % (Manual) 4L, Monocytes % (Manual) 9, Eosinophils % (Manual) 0, Basophils % ( Manual) 0, Band Neutrophils 0, Platelet Estimate IncreasedH, Platelet Morphology Normal, Red Blood Cell Morphology Normal, Sodium Level 121L, Potassium Level 5.8H, Chloride Level 84L, Carbon Dioxide Level 26, Anion Gap 11 , Blood Urea Nitrogen 14, Creatinine 1.1, Estimat Glomerular Filtration Rate , Glucose Level 89, Calcium Level 9.0, Lactate Dehydrogenase 222 Height (Feet): 5 Height (Inches): 5.00 Weight (Pounds): 205 Bhavana West MD Jul 06, 2019 23:04
[2019-07-07] VITALS: BP 148/89
--- NOTE | 2019-07-07 | Consultation ---
DATE OF CONSULTATION: 07/06/2019 GASTROENTEROLOGY CONSULTATION CONSULTING PHYSICIAN: Bhavana West M.D. CHIEF COMPLAINT: I was asked to see this patient by Dr. Ty Schaefer for evaluation of ascites and abdominal issues. HISTORY OF PRESENT ILLNESS: The patient is a pleasant 74-year-old woman who comes into the hospital due to complaints of shortness of breath and abdominal discomfort. During the course of the evaluation, the patient was noted to have ascites with some nodularity to omentum suggestive of possible peritoneal carcinomatosis. In addition, the hepatic surface appeared nodular suggesting cirrhotic change. She had a right pleural effusion in addition to the ascites. Because of these issues, she has been admitted to the hospital. The patient complains of some nausea, vomiting, and diarrhea, but no weight loss. The patient has not had a history of liver disease in the past. She does not drink alcohol. She does have some shortness of breath, which she attributed to pulmonary issues. PAST MEDICAL HISTORY: History of COPD, history of hypertension. FAMILY HISTORY: Positive for leukemia in her mother. SOCIAL HISTORY: The patient is single. She has 2 children. She is a previous smoker. ALLERGIES: None. REVIEW OF SYSTEMS: Otherwise negative. PHYSICAL EXAMINATION: GENERAL: Pleasant, elderly woman, seen in her room. HEENT: Normocephalic and atraumatic. Sclerae anicteric. Oropharynx clear. NECK: Supple. CHEST: Revealed coarse breath sounds. CARDIOVASCULAR: Revealed a regular rate. ABDOMEN: Obese and soft without masses. EXTREMITIES: With no edema. LABORATORY DATA: Noted. IMAGING STUDIES: Reviewed. ASSESSMENT: This patient presents with multiple gastrointestinal issues including ascites, which is possible and malignant due to peritoneal nodularity, liver which appears to be cirrhotic, nausea, vomiting, and diarrhea. The patient should have her ascites sampled and sent to cytology as well as usual cell count and culture. In addition, I would check liver cirrhosis workup including hepatitis markers and autoimmune markers. The patient should also have her stools checked for both infectious pathologies as well as for occult blood. She may require an endoscopy or colonoscopy at some point if the source of the tumor is not identified. RECOMMENDATIONS: Per above discussion and per orders in the chart. Thank you for asking me to participate in the care of this patient. Bhavana West M.D. DR: LYDIA JOB#: [id number] CC:
[2019-07-07 04:00] VITALS: BP 147/81
[2019-07-07] MEDS: metroNIDAZOLE 500mg tab ORAL SCH ×3 (06:34→22:05)
[2019-07-07 07:13] LABS: HEMATOCRIT 37.9 % (37.0-47.0); HEMOGLOBIN 12.4 G/DL (12.0-16.0); MEAN CORPUSCULAR VOLUME 78 FL (80-99); PLATELET COUNT 967 K/UL (150-450); RED BLOOD COUNT 4.86 M/UL (4.20-5.40); RED CELL DISTRIBUTION WIDTH 11.7 % (11.6-14.8); WHITE BLOOD COUNT 19.1 K/UL (4.8-10.8)
[2019-07-07 07:23] LABS: INR 1.1 (0.9-1.1)
[2019-07-07 07:39] LABS: ALANINE AMINOTRANSFERASE 20 U/L (12-78); ALBUMIN 2.1 G/DL (3.4-5.0); ALBUMIN/GLOBULIN RATIO 0.4 (1.0-2.7); ALKALINE PHOSPHATASE 91 U/L (46-116); ANION GAP 5 mmol/L (5-15); ASPARTATE AMINO TRANSFERASE 28 U/L (15-37); BILIRUBIN,TOTAL 0.6 MG/DL (0.2-1.0); BLOOD UREA NITROGEN 23 mg/dL (7-18); CALCIUM 8.9 MG/DL (8.5-10.1); CARBON DIOXIDE 30 MMOL/L (21-32); CHLORIDE 86 MMOL/L (98-107); CREATININE 1.2 MG/DL (0.55-1.30); SODIUM 121 MMOL/L (136-145)
[2019-07-07 07:40] LABS: % IRON SATURATION 9 % (15-50); IRON 18 ug/dL (50-175); TOTAL IRON BINDING CAPACITY 197 ug/dL (250-450)
[2019-07-07 08:00] VITALS: BP 143/74
[2019-07-07] MEDS ORDERED: NaCl 3% 500ml 250 ML IV ONE (08:15)
--- NOTE | 2019-07-07 08:16 | Nephrology Progress Note ---
Assessment/Plan Assessment/Plan: A/P 1. 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 - lasix - NA 121. Will use 3% to acheive level > 125 2. Shortness of breath secondary to large right-sided pleural effusion with compressive atelectasis, most likely malignant in nature. - s/p 600 ml thoracentesis and 3.4 L paracentesis 3. Abdominal pain with possible carcinomatosis and malignant ascites. - paracentesis completed. Awaiting diagnostics 4. Leukocytosis with unclear etiology. Infectious Diseases to follow. - emperic Abx initiated 5. GI prophylaxis with famotidine. 6. DVT prophylaxis with heparin subcutaneous. Subjective Date patient seen: Jul 07, 2019 Time patient seen: 08:14 ROS Limited/Unobtainable: No Allergies: Coded Allergies: No Known Allergies (Unverified , 06/30/19) Subjective Patient SOB improved. S/P thoracentesis and paracentesis Objective Last 24 Hour Vital Signs Date Time Temp Pulse Resp B/P (MAP) Pulse Ox O2 Delivery O2 Flow Rate FiO2 07/07/19 08:00 98.2 81 19 143/74 (97) 96 07/07/19 04:00 98.1 92 18 147/81 (103) 99 07/07/19 04:00 83 07/07/19 00:00 97.0 80 18 148/89 (108) 99 07/07/19 00:00 82 07/06/19 22:03 96.7 07/06/19 21:31 87 161/86 07/06/19 21:00 Nasal Cannula 2.0 07/06/19 20:35 87 22 95 Nasal Cannula 2.0 28 07/06/19 20:00 98.0 100 18 155/74 (101) 98 07/06/19 20:00 97 07/06/19 16:00 97 07/06/19 16:00 96.7 89 20 161/86 (111) 95 07/06/19 12:00 97.2 84 18 166/93 (117) 97 07/06/19 12:00 84 07/06/19 09:03 107 162/98 07/06/19 09:00 Nasal Cannula 2.0 Intake and Output 07/06/19 07/07/19 19:00 07:00 Intake Total 120 ml Output Total 800 ml Balance -680 ml Intake Oral 120 ml Output Urine Total 800 ml # Voids 3 3 Laboratory Tests 07/06/19 13:01: Body Fluid Source [Pending], Body Fluid Volume [Pending], Body Fluid Appearance [Pending], Body Fluid RBC [Pending], Body Fluid Total Nucleated Cells [Pending] , Body Fluid Albumin [Pending] 07/07/19 06:27: White Blood Count 19.1H, Red Blood Count 4.86, Hemoglobin 12.4, Hematocrit 37.9 , Mean Corpuscular Volume 78L, Mean Corpuscular Hemoglobin 25.5L, Mean Corpuscular Hemoglobin Concent 32.7, Red Cell Distribution Width 11.7, Platelet Count 967H, Mean Platelet Volume 4.3L, Neutrophils (%) (Auto) , Lymphocytes (%) (Auto) , Monocytes (%) (Auto) , Eosinophils (%) (Auto) , Basophils (%) (Auto) , Neutrophils % (Manual) [Pending], Lymphocytes % (Manual) [Pending], Platelet Estimate [Pending], Platelet Morphology [Pending], Prothrombin Time 11.5, Prothromb Time International Ratio 1.1, Sodium Level 121L, Potassium Level 5.0, Chloride Level 86L, Carbon Dioxide Level 30, Anion Gap 5, Blood Urea Nitrogen 23H, Creatinine 1.2, Estimat Glomerular Filtration Rate , Glucose Level 100, Calcium Level 8.9, Iron Level 18L, Total Iron Binding Capacity 197L, Percent Iron Saturation 9L, Unsaturated Iron Binding 179, Total Bilirubin 0.6, Aspartate Amino Transf (AST/SGOT) 28, Alanine Aminotransferase (ALT/SGPT) 20, Alkaline Phosphatase 91, Total Protein 6.8, Albumin 2.1L, Globulin 4.7, Albumin/ Globulin Ratio 0.4L, Carcinoembryonic Antigen [Pending], CA 19-9 Antigen [ Pending], CA 125 Antigen [Pending], Anti-Nuclear Antibody Screen [Pending], Hepatitis A IgM Antibody [Pending], Hepatitis B Surface Antigen [Pending], Hepatitis B Core IgM Antibody [Pending], Hepatitis C Antibody [Pending] Height (Feet): 5 Height (Inches): 5.00 Weight (Pounds): 205 General Appearance: no apparent distress, alert EENT: normal ENT inspection Neck: normal alignment, supple Cardiovascular: regular rhythm Respiratory/Chest: rhonchi - bilaterally Abdomen: non tender, soft Edema: 1+ Arm (L), 1+ Arm (R), 1+ Leg (L), 1+ Leg (R), 1+ Pedal (L), 1+ Pedal ( R), 1+ Generalized Ty Schaefer MD Jul 07, 2019 08:16
[2019-07-07] MEDS: Carvedilol 6.25mg Tab ORAL SCH ×2 (09:14→20:27)
[2019-07-07] MEDS: Heparin 5000 units/ml inj SUBQ SCH ×2 (09:16→20:29)
[2019-07-07] MEDS ORDERED: NaCl 3% 500ml 250 ML IV SCH (09:30)
[2019-07-07 12:00] VITALS: BP 130/87
--- NOTE | 2019-07-07 12:49 | Infectious Diseases Prog Note ---
Assessment/Plan Assessment/Plan Assessment: Sepsis vs SIRS Afebrile Leukocytosis- ?reactive vs infectious process- r/o intraabdominal infection, parapneunomic pleural effusion Abd pain, vomiting, diarrhea- ?peritoneal carcinomatosis -CT c/abd/p: Abdominal ascites. Suspect infiltration of the omentum by soft tissue, worrisome for peritoneal carcinomatosis. Equivocal hepatic surface nodularity, could indicate early cirrhotic change if real. Ultrasound may be useful for further evaluation. Bile is dilated fluid-filled proximal small bowel loops, nondilated distal small bowel. This could indicate small bowel obstruction. Large right pleural effusion. Resultant compressive atelectasis of portion of the right lower lobe. Left basilar scarring or atelectasis. Enlarged right thyroid lobe. Consider sonography for further evaluation. Cholelithiasis. Large R pleural effusion; exudative- ?malignant -07/05 CXR: Resolved right pleural effusion, status post thoracentesis. No radiographically evident complication -07/05 SP R thoracentesis: removal of 600 milliliters of fluid --LDH 299 (serum 222), protein 4.9 (serum 7.7), pH 7.5, glucose 59; cx NTD Ascites -07/06 sp paracentesis: removal of 3.35 fluid -no fluid analsysis sent HTN COPD Plan: -cont empiric Ceftriaxone and Flagyl #3 -07/05 SP Levaquin x1 -f/u cx -Monitor CBC/CMP, temperatures -f/u Cdiff, stool cx, Influenza sc -aspiration precautions Thank you for conulting [facility]. Will continue to follow along with you. Discussed with RN. Subjective Allergies: Coded Allergies: No Known Allergies (Unverified , 06/30/19) Subjective afebrile wbc increased Objective Vital Signs Last 24 Hour Vital Signs Date Time Temp Pulse Resp B/P (MAP) Pulse Ox O2 Delivery O2 Flow Rate FiO2 07/07/19 09:14 81 143/74 07/07/19 09:00 Nasal Cannula 2.0 07/07/19 08:00 98.2 81 19 143/74 (97) 96 07/07/19 08:00 96 07/07/19 04:00 98.1 92 18 147/81 (103) 99 07/07/19 04:00 83 07/07/19 00:00 97.0 80 18 148/89 (108) 99 07/07/19 00:00 82 07/06/19 22:03 96.7 07/06/19 21:31 87 161/86 07/06/19 21:00 Nasal Cannula 2.0 07/06/19 20:35 87 22 95 Nasal Cannula 2.0 28 07/06/19 20:00 98.0 100 18 155/74 (101) 98 07/06/19 20:00 97 07/06/19 16:00 97 07/06/19 16:00 96.7 89 20 161/86 (111) 95 Height (Feet): 5 Height (Inches): 5.00 Weight (Pounds): 205 Objective General Appearance: well appearing, alert, mild distress Head: normocephalic, atraumatic Eyes: bilateral eye PERRL, bilateral eye EOMI ENT: hearing grossly normal, normal pharynx Neck: full range of motion, supple, no meningismus Respiratory: chest non-tender, decreased breath sounds, accessory muscle use, wheezing Cardiovascular #1: regular rate, rhythm, no murmur Gastrointestinal: normal bowel sounds, no mass, no organomegaly, no bruit, non- distended, tenderness - Abdominal pain, mild, diffuse Musculoskeletal: back normal, normal range of motion, gait/station normal Psychiatric: mood/affect normal Microbiology Date/Time Source Procedure Growth Status 07/05/19 02:20 Blood Blood Culture - Preliminary NO GROWTH AFTER 48 HOURS Resulted 07/05/19 02:15 Blood Blood Culture - Preliminary NO GROWTH AFTER 48 HOURS Resulted 07/05/19 15:30 Pleural Fluid Gram Stain - Final Resulted 07/05/19 15:30 Pleural Fluid Body Fluid Culture - Preliminary NO GROWTH AFTER 48 HOURS Resulted 07/05/19 02:10 Urine,Clean Catch Urine Culture - Final Mixed Gram Positive Organism Complete Laboratory Tests Test 07/06/19 13:01 07/07/19 06:27 Body Fluid Source Pleural Body Fluid Volume 17 mL Body Fluid Appearance Hazy (Clear) Body Fluid RBC 1360 /CUMM Body Fluid Total Nucleated Cells 2110 /CUMM Body Fluid Albumin Pending Body Fluid Comment See comment White Blood Count 19.1 K/UL (4.8-10.8) H Red Blood Count 4.86 M/UL (4.20-5.40) Hemoglobin 12.4 G/DL (12.0-16.0) Hematocrit 37.9 % (37.0-47.0) Mean Corpuscular Volume 78 FL (80-99) L Mean Corpuscular Hemoglobin 25.5 PG (27.0-31.0) L Mean Corpuscular Hemoglobin Concent 32.7 G/DL (32.0-36.0) Red Cell Distribution Width 11.7 % (11.6-14.8) Platelet Count 967 K/UL (150-450) H Mean Platelet Volume 4.3 FL (6.5-10.1) L Neutrophils (%) (Auto) % (45.0-75.0) Lymphocytes (%) (Auto) % (20.0-45.0) Monocytes (%) (Auto) % (1.0-10.0) Eosinophils (%) (Auto) % (0.0-3.0) Basophils (%) (Auto) % (0.0-2.0) Differential Total Cells Counted 100 Neutrophils % (Manual) 77 % (45-75) H Lymphocytes % (Manual) 17 % (20-45) L Monocytes % (Manual) 5 % (1-10) Eosinophils % (Manual) 1 % (0-3) Basophils % (Manual) 0 % (0-2) Band Neutrophils 0 % (0-8) Platelet Estimate Increased H Platelet Morphology Normal Anisocytosis 1+ Microcytosis 1+ Prothrombin Time 11.5 SEC (9.30-11.50) Prothromb Time International Ratio 1.1 (0.9-1.1) Sodium Level 121 MMOL/L (136-145) L Potassium Level 5.0 MMOL/L (3.5-5.1) Chloride Level 86 MMOL/L (98-107) L Carbon Dioxide Level 30 MMOL/L (21-32) Anion Gap 5 mmol/L (5-15) Blood Urea Nitrogen 23 mg/dL (7-18) H Creatinine 1.2 MG/DL (0.55-1.30) Estimat Glomerular Filtration Rate mL/min (>60) Glucose Level 100 MG/DL (74-106) Calcium Level 8.9 MG/DL (8.5-10.1) Iron Level 18 ug/dL (50-175) L Total Iron Binding Capacity 197 ug/dL (250-450) L Percent Iron Saturation 9 % (15-50) L Unsaturated Iron Binding 179 ug/dL (112-346) Total Bilirubin 0.6 MG/DL (0.2-1.0) Aspartate Amino Transf (AST/SGOT) 28 U/L (15-37) Alanine Aminotransferase (ALT/SGPT) 20 U/L (12-78) Alkaline Phosphatase 91 U/L (46-116) Total Protein 6.8 G/DL (6.4-8.2) Albumin 2.1 G/DL (3.4-5.0) L Globulin 4.7 g/dL Albumin/Globulin Ratio 0.4 (1.0-2.7) L Carcinoembryonic Antigen Pending CA 19-9 Antigen Pending CA 125 Antigen Pending Anti-Nuclear Antibody Screen Pending Hepatitis A IgM Antibody Pending Hepatitis B Surface Antigen Pending Hepatitis B Core IgM Antibody Pending Hepatitis C Antibody Pending Current Medications Medications (Trade) Dose Ordered Sig/Tiffani Route PRN Reason Start Time Stop Time Status Last Admin Dose Admin Albuterol/ Ipratropium (Albuterol/ Ipratropium) 3 ml Q6H PRN HHN Shortness of Breath 07/06/19 20:00 07/11/19 19:59 Carvedilol (Coreg) 6.25 mg EVERY 12 HOURS ORAL 07/06/19 09:00 08/05/19 08:59 07/07/19 09:14 Ceftriaxone Sodium 1 gm/ Dextrose 55 ml @ 110 mls/hr Q24H IVPB 07/05/19 12:00 07/12/19 11:59 07/06/19 12:32 Dextrose (Dextrose 50%) 25 ml Q30M PRN IV Hypoglycemia 07/05/19 10:15 08/04/19 10:14 Dextrose (Dextrose 50%) 50 ml Q30M PRN IV Hypoglycemia 07/05/19 10:15 08/04/19 10:14 Furosemide (Lasix) 40 mg DAILY IV 07/05/19 11:00 08/04/19 10:59 07/07/19 09:14 Heparin Sodium (Porcine) (Heparin 5000 units/ml) 5,000 units EVERY 12 HOURS SUBQ 07/05/19 21:00 08/04/19 20:59 07/07/19 09:16 Hydralazine HCl (Apresoline) 25 mg Q6H PRN ORAL For High Blood Pressure 07/06/19 08:30 13/20 08:29 Metronidazole (Flagyl) 500 mg Q8HR ORAL 07/05/19 14:00 07/12/19 13:59 07/07/19 06:34 Morphine Sulfate (Morphine Sulfate) 1 mg Q4H PRN IVP For Pain 07/06/19 20:00 07/13/19 19:59 07/06/19 21:33 Ondansetron HCl (Zofran) 4 mg Q6H PRN IVP Nausea & Vomiting 07/05/19 10:15 08/04/19 10:14 07/05/19 22:08 Sodium Chloride 250 ml @ 30 mls/hr ONCE IV 07/07/19 09:30 07/07/19 13:30 07/07/19 09:14 Fartun Milton M.D. Jul 07, 2019 12:49
[2019-07-07] MEDS: cefTRIAXone 1 GM in D5W 55 ML IVPB SCH (13:00)
--- NOTE | 2019-07-07 13:14 | Pulmonology Progress Note ---
Assessment/Plan Assessment/Plan IMPRESSION: 1. Right lung pneumonia. 2. Right pleural effusion. 3. Hyponatremia. 4. Hyperglycemia. 5. Hypertension. 6. COPD. DISCUSSION: Continue Flagyl and Levaquin. Agree with breathing treatments and oxygen. I will follow carefully. S/p thoracentesis Cytology confirms malignancy Discussed with Dr. Hernandez Oncologic eval Sina Metcalf M.D. Subjective Interval Events: None new Constitutional: Reports: no symptoms HEENT: Repors: no symptoms Respiratory: Reports: no symptoms Cardiovascular: Reports: no symptoms Gastrointestinal/Abdominal: Reports: no symptoms Genitourinary: Reports: no symptoms Allergies: Coded Allergies: No Known Allergies (Unverified , 06/30/19) Objective Last 24 Hour Vital Signs Date Time Temp Pulse Resp B/P (MAP) Pulse Ox O2 Delivery O2 Flow Rate FiO2 07/07/19 09:14 81 143/74 07/07/19 09:00 Nasal Cannula 2.0 07/07/19 08:00 98.2 81 19 143/74 (97) 96 07/07/19 08:00 96 07/07/19 04:00 98.1 92 18 147/81 (103) 99 07/07/19 04:00 83 07/07/19 00:00 97.0 80 18 148/89 (108) 99 07/07/19 00:00 82 07/06/19 22:03 96.7 07/06/19 21:31 87 161/86 07/06/19 21:00 Nasal Cannula 2.0 07/06/19 20:35 87 22 95 Nasal Cannula 2.0 28 07/06/19 20:00 98.0 100 18 155/74 (101) 98 07/06/19 20:00 97 07/06/19 16:00 97 07/06/19 16:00 96.7 89 20 161/86 (111) 95 Intake and Output 07/06/19 07/07/19 18:59 06:59 Intake Total 120 ml Output Total 800 ml Balance -680 ml Intake Oral 120 ml Output Urine Total 800 ml # Voids 3 3 General Appearance: no acute distress HEENT: normocephalic Respiratory/Chest: chest wall non-tender, decreased breath sounds Cardiovascular: normal peripheral pulses, normal rate Abdomen: normal bowel sounds Microbiology Date/Time Source Procedure Growth Status 07/05/19 02:20 Blood Blood Culture - Preliminary NO GROWTH AFTER 48 HOURS Resulted 07/05/19 02:15 Blood Blood Culture - Preliminary NO GROWTH AFTER 48 HOURS Resulted 07/05/19 15:30 Pleural Fluid Gram Stain - Final Resulted 07/05/19 15:30 Pleural Fluid Body Fluid Culture - Preliminary NO GROWTH AFTER 48 HOURS Resulted 07/05/19 02:10 Urine,Clean Catch Urine Culture - Final Mixed Gram Positive Organism Complete Laboratory Tests 07/07/19 06:27: White Blood Count 19.1H, Red Blood Count 4.86, Hemoglobin 12.4, Hematocrit 37.9 , Mean Corpuscular Volume 78L, Mean Corpuscular Hemoglobin 25.5L, Mean Corpuscular Hemoglobin Concent 32.7, Red Cell Distribution Width 11.7, Platelet Count 967H, Mean Platelet Volume 4.3L, Neutrophils (%) (Auto) , Lymphocytes (%) (Auto) , Monocytes (%) (Auto) , Eosinophils (%) (Auto) , Basophils (%) (Auto) , Differential Total Cells Counted 100, Neutrophils % (Manual) 77H, Lymphocytes % (Manual) 17L, Monocytes % (Manual) 5, Eosinophils % (Manual) 1, Basophils % ( Manual) 0, Band Neutrophils 0, Platelet Estimate IncreasedH, Platelet Morphology Normal, Anisocytosis 1+, Microcytosis 1+, Prothrombin Time 11.5, Prothromb Time International Ratio 1.1, Sodium Level 121L, Potassium Level 5.0, Chloride Level 86L, Carbon Dioxide Level 30, Anion Gap 5, Blood Urea Nitrogen 23H, Creatinine 1.2, Estimat Glomerular Filtration Rate , Glucose Level 100, Calcium Level 8.9, Iron Level 18L, Total Iron Binding Capacity 197L, Percent Iron Saturation 9L, Unsaturated Iron Binding 179, Total Bilirubin 0.6, Aspartate Amino Transf (AST/SGOT) 28, Alanine Aminotransferase (ALT/SGPT) 20, Alkaline Phosphatase 91, Total Protein 6.8, Albumin 2.1L, Globulin 4.7, Albumin/ Globulin Ratio 0.4L, Carcinoembryonic Antigen [Pending], CA 19-9 Antigen [ Pending], CA 125 Antigen [Pending], Anti-Nuclear Antibody Screen [Pending], Hepatitis A IgM Antibody [Pending], Hepatitis B Surface Antigen [Pending], Hepatitis B Core IgM Antibody [Pending], Hepatitis C Antibody [Pending] Current Medications Medications (Trade) Dose Ordered Sig/Tiffani Route PRN Reason Start Time Stop Time Status Last Admin Dose Admin Albuterol/ Ipratropium (Albuterol/ Ipratropium) 3 ml Q6H PRN HHN Shortness of Breath 07/06/19 20:00 07/11/19 19:59 Carvedilol (Coreg) 6.25 mg EVERY 12 HOURS ORAL 07/06/19 09:00 08/05/19 08:59 07/07/19 09:14 Ceftriaxone Sodium 1 gm/ Dextrose 55 ml @ 110 mls/hr Q24H IVPB 07/05/19 12:00 07/12/19 11:59 07/07/19 13:00 Dextrose (Dextrose 50%) 25 ml Q30M PRN IV Hypoglycemia 07/05/19 10:15 08/04/19 10:14 Dextrose (Dextrose 50%) 50 ml Q30M PRN IV Hypoglycemia 07/05/19 10:15 08/04/19 10:14 Furosemide (Lasix) 40 mg DAILY IV 07/05/19 11:00 08/04/19 10:59 07/07/19 09:14 Heparin Sodium (Porcine) (Heparin 5000 units/ml) 5,000 units EVERY 12 HOURS SUBQ 07/05/19 21:00 08/04/19 20:59 07/07/19 09:16 Hydralazine HCl (Apresoline) 25 mg Q6H PRN ORAL For High Blood Pressure 07/06/19 08:30 08/05/19 08:29 Metronidazole (Flagyl) 500 mg Q8HR ORAL 07/05/19 14:00 07/12/19 13:59 07/07/19 06:34 Morphine Sulfate (Morphine Sulfate) 1 mg Q4H PRN IVP For Pain 07/06/19 20:00 07/13/19 19:59 07/06/19 21:33 Ondansetron HCl (Zofran) 4 mg Q6H PRN IVP Nausea & Vomiting 07/05/19 10:15 08/04/19 10:14 07/05/19 22:08 Sodium Chloride 250 ml @ 30 mls/hr ONCE IV 07/07/19 09:30 07/07/19 13:30 07/07/19 09:14 Sina Metcalf MD Jul 07, 2019 13:14
[2019-07-07 16:00] VITALS: BP 136/82
[2019-07-07 20:00] VITALS: BP 145/87
[2019-07-07] MEDS ORDERED: NACL 3% IV ONE (22:00)
[2019-07-07] MEDS: Morphine Sulfate 2mg/ml Inj(IV/IM USE ONLY) IVP PRN (22:03)
--- NOTE | 2019-07-07 22:36 | General Progress Note ---
Assessment/Plan Assessment/Plan: Assessment - Malignant pleural effusion. 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, Mullerian origin Objective Last 24 Hour Vital Signs Date Time Temp Pulse Resp B/P (MAP) Pulse Ox O2 Delivery O2 Flow Rate FiO2 07/07/19 21:46 96 Nasal Cannula 2.0 28 07/07/19 20:27 102 145/87 07/07/19 20:00 98.1 102 20 145/87 (106) 95 07/07/19 16:00 95 07/07/19 16:00 98.6 76 18 136/82 (100) 96 07/07/19 12:00 97.3 80 20 130/87 (101) 96 07/07/19 12:00 96 07/07/19 09:14 81 143/74 07/07/19 09:00 Nasal Cannula 2.0 07/07/19 08:00 98.2 81 19 143/74 (97) 96 07/07/19 08:00 96 07/07/19 04:00 98.1 92 18 147/81 (103) 99 07/07/19 04:00 83 07/07/19 00:00 97.0 80 18 148/89 (108) 99 07/07/19 00:00 82 Intake and Output 07/06/19 07/07/19 19:00 07:00 Intake Total 120 ml 120 ml Output Total 800 ml Balance -680 ml 120 ml Intake Oral 120 ml 120 ml Output Urine Total 800 ml # Voids 3 3 Laboratory Tests 07/07/19 06:27: White Blood Count 19.1H, Red Blood Count 4.86, Hemoglobin 12.4, Hematocrit 37.9 , Mean Corpuscular Volume 78L, Mean Corpuscular Hemoglobin 25.5L, Mean Corpuscular Hemoglobin Concent 32.7, Red Cell Distribution Width 11.7, Platelet Count 967H, Mean Platelet Volume 4.3L, Neutrophils (%) (Auto) , Lymphocytes (%) (Auto) , Monocytes (%) (Auto) , Eosinophils (%) (Auto) , Basophils (%) (Auto) , Differential Total Cells Counted 100, Neutrophils % (Manual) 77H, Lymphocytes % (Manual) 17L, Monocytes % (Manual) 5, Eosinophils % (Manual) 1, Basophils % ( Manual) 0, Band Neutrophils 0, Platelet Estimate IncreasedH, Platelet Morphology Normal, Anisocytosis 1+, Microcytosis 1+, Prothrombin Time 11.5, Prothromb Time International Ratio 1.1, Sodium Level 121L, Potassium Level 5.0, Chloride Level 86L, Carbon Dioxide Level 30, Anion Gap 5, Blood Urea Nitrogen 23H, Creatinine 1.2, Estimat Glomerular Filtration Rate , Glucose Level 100, Calcium Level 8.9, Iron Level 18L, Total Iron Binding Capacity 197L, Percent Iron Saturation 9L, Unsaturated Iron Binding 179, Total Bilirubin 0.6, Aspartate Amino Transf (AST/SGOT) 28, Alanine Aminotransferase (ALT/SGPT) 20, Alkaline Phosphatase 91, Total Protein 6.8, Albumin 2.1L, Globulin 4.7, Albumin/ Globulin Ratio 0.4L, Carcinoembryonic Antigen [Pending], CA 19-9 Antigen [ Pending], CA 125 Antigen [Pending], Anti-Nuclear Antibody Screen [Pending], Hepatitis A IgM Antibody [Pending], Hepatitis B Surface Antigen [Pending], Hepatitis B Core IgM Antibody [Pending], Hepatitis C Antibody [Pending] 07/07/19 17:30: Sodium Level 122L Height (Feet): 5 Height (Inches): 5.00 Weight (Pounds): 205 Objective NCAT supple Coarse BS RR abd distended Bhavana West MD Jul 07, 2019 22:36
[2019-07-08] VITALS: BP 147/85
[2019-07-08 04:00] VITALS: BP 137/89
[2019-07-08] MEDS: Sorbitol Solution UD 30ml ORAL SCH ×3 (07:07→21:50)
[2019-07-08 07:27] LABS: ANION GAP 10 mmol/L (5-15); BLOOD UREA NITROGEN 28 mg/dL (7-18); CARBON DIOXIDE 26 MMOL/L (21-32); CHLORIDE 89 MMOL/L (98-107); CREATININE 0.9 MG/DL (0.55-1.30); POTASSIUM 4.8 MMOL/L (3.5-5.1); SODIUM 124 MMOL/L (136-145)
[2019-07-08 08:00] VITALS: BP 130/85
--- NOTE | 2019-07-08 08:08 | Nephrology Progress Note ---
Assessment/Plan Assessment/Plan: A/P 1. 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 - lasix - Na up to 124. Will use 3% to acheive level > 125 2. Shortness of breath secondary to large right-sided pleural effusion with compressive atelectasis, most likely malignant in nature. - s/p 600 ml thoracentesis and 3.4 L paracentesis 3. Abdominal pain with possible carcinomatosis and malignant ascites. - paracentesis completed. - path diagnostic for malignancy/[employer]. ONC consulted 4. Leukocytosis with unclear etiology. Per ID - emperic Abx initiated 5. GI prophylaxis with famotidine. 6. DVT prophylaxis with heparin subcutaneous. Subjective Date patient seen: Jul 08, 2019 Time patient seen: 08:07 ROS Limited/Unobtainable: No Allergies: Coded Allergies: No Known Allergies (Unverified , 06/30/19) Subjective Patient resting comfortably Objective Last 24 Hour Vital Signs Date Time Temp Pulse Resp B/P (MAP) Pulse Ox O2 Delivery O2 Flow Rate FiO2 07/08/19 04:00 85 07/08/19 04:00 85 07/08/19 04:00 97.9 87 18 137/89 (105) 97 07/08/19 00:00 98.1 90 18 147/85 (105) 100 07/07/19 21:46 96 Nasal Cannula 2.0 28 07/07/19 21:00 Nasal Cannula 2.0 07/07/19 20:27 102 145/87 07/07/19 20:00 98.1 102 20 145/87 (106) 95 07/07/19 20:00 101 07/07/19 16:00 95 07/07/19 16:00 98.6 76 18 136/82 (100) 96 07/07/19 12:00 97.3 80 20 130/87 (101) 96 07/07/19 12:00 96 07/07/19 09:14 81 143/74 07/07/19 09:00 Nasal Cannula 2.0 Intake and Output 07/07/19 07/08/19 19:00 07:00 Intake Total 260 ml Output Total 300 ml Balance 260 ml -300 ml Intake Oral 260 ml Output Urine Total 300 ml Laboratory Tests 07/07/19 17:30: Sodium Level 122L 07/08/19 06:44: Sodium Level 124L, Potassium Level 4.8, Chloride Level 89L, Carbon Dioxide Level 26, Anion Gap 10, Blood Urea Nitrogen 28H, Creatinine 0.9, Estimat Glomerular Filtration Rate , Glucose Level 103, Calcium Level 9.0 Height (Feet): 5 Height (Inches): 5.00 Weight (Pounds): 205 General Appearance: no apparent distress EENT: normal ENT inspection Neck: normal alignment, supple Cardiovascular: normal rate Respiratory/Chest: rhonchi - bilaterally Abdomen: non tender, soft, distended Edema: no edema noted Arm (L), no edema noted Arm (R), no edema noted Leg (L), no edema noted Leg (R), no edema noted Pedal (L), no edema noted Pedal (R), no edema noted Generalized Ty Schaefer MD Jul 08, 2019 08:08
--- NOTE | 2019-07-08 08:22 | Pulmonology Progress Note ---
Assessment/Plan Assessment/Plan IMPRESSION: 1. Right lung pneumonia. 2. Right pleural effusion. 3. Hyponatremia. 4. Hyperglycemia. 5. Hypertension. 6. COPD. DISCUSSION: Continue Flagyl and Levaquin. Agree with breathing treatments and oxygen. I will follow carefully. S/p thoracentesis Cytology confirms malignancy Discussed with Dr. Hernandez Oncologic eval Sina Metcalf M.D. Subjective Interval Events: None new Constitutional: Reports: no symptoms HEENT: Repors: no symptoms Respiratory: Reports: no symptoms Cardiovascular: Reports: no symptoms Gastrointestinal/Abdominal: Reports: no symptoms Allergies: Coded Allergies: No Known Allergies (Unverified , 06/30/19) Objective Last 24 Hour Vital Signs Date Time Temp Pulse Resp B/P (MAP) Pulse Ox O2 Delivery O2 Flow Rate FiO2 07/08/19 04:00 85 07/08/19 04:00 85 07/08/19 04:00 97.9 87 18 137/89 (105) 97 07/08/19 00:00 98.1 90 18 147/85 (105) 100 07/07/19 21:46 96 Nasal Cannula 2.0 28 07/07/19 21:00 Nasal Cannula 2.0 07/07/19 20:27 102 145/87 07/07/19 20:00 98.1 102 20 145/87 (106) 95 07/07/19 20:00 101 07/07/19 16:00 95 07/07/19 16:00 98.6 76 18 136/82 (100) 96 07/07/19 12:00 97.3 80 20 130/87 (101) 96 07/07/19 12:00 96 07/07/19 09:14 81 143/74 07/07/19 09:00 Nasal Cannula 2.0 Intake and Output 07/07/19 07/08/19 19:00 07:00 Intake Total 260 ml Output Total 300 ml Balance 260 ml -300 ml Intake Oral 260 ml Output Urine Total 300 ml General Appearance: no acute distress HEENT: normocephalic Respiratory/Chest: chest wall non-tender Cardiovascular: normal peripheral pulses, normal rate Abdomen: normal bowel sounds Microbiology Date/Time Source Procedure Growth Status 07/06/19 13:01 Body Fluid Other Gram Stain - Final Resulted 07/06/19 13:01 Body Fluid Other Body Fluid Culture - Preliminary NO GROWTH Resulted 07/05/19 15:30 Pleural Fluid Gram Stain - Final Resulted 07/05/19 15:30 Pleural Fluid Body Fluid Culture - Preliminary NO GROWTH AFTER 72 HOURS Resulted Laboratory Tests 07/07/19 17:30: Sodium Level 122L 07/08/19 06:44: Sodium Level 124L, Potassium Level 4.8, Chloride Level 89L, Carbon Dioxide Level 26, Anion Gap 10, Blood Urea Nitrogen 28H, Creatinine 0.9, Estimat Glomerular Filtration Rate , Glucose Level 103, Calcium Level 9.0 Current Medications Medications (Trade) Dose Ordered Sig/Tiffani Route PRN Reason Start Time Stop Time Status Last Admin Dose Admin Albuterol/ Ipratropium (Albuterol/ Ipratropium) 3 ml Q6H PRN HHN Shortness of Breath 07/06/19 20:00 07/11/19 19:59 Carvedilol (Coreg) 6.25 mg EVERY 12 HOURS ORAL 07/06/19 09:00 08/05/19 08:59 07/07/19 20:27 Ceftriaxone Sodium 1 gm/ Dextrose 55 ml @ 110 mls/hr Q24H IVPB 07/05/19 12:00 07/12/19 11:59 07/07/19 13:00 Dextrose (Dextrose 50%) 25 ml Q30M PRN IV Hypoglycemia 07/05/19 10:15 08/04/19 10:14 Dextrose (Dextrose 50%) 50 ml Q30M PRN IV Hypoglycemia 07/05/19 10:15 08/04/19 10:14 Furosemide (Lasix) 40 mg DAILY IV 07/05/19 11:00 08/04/19 10:59 07/07/19 09:14 Heparin Sodium (Porcine) (Heparin 5000 units/ml) 5,000 units EVERY 12 HOURS SUBQ 07/05/19 21:00 08/04/19 20:59 07/07/19 20:29 Hydralazine HCl (Apresoline) 25 mg Q6H PRN ORAL For High Blood Pressure 07/06/19 08:30 08/05/19 08:29 Metronidazole 100 ml @ 100 mls/hr Q8H IVPB 07/07/19 23:00 07/14/19 22:59 07/08/19 06:34 Morphine Sulfate (Morphine Sulfate) 1 mg Q4H PRN IVP For Pain 07/06/19 20:00 07/13/19 19:59 07/07/19 22:03 Ondansetron HCl (Zofran) 4 mg Q6H PRN IVP Nausea & Vomiting 07/05/19 10:15 08/04/19 10:14 07/05/19 22:08 Sodium Chloride 120 ml @ 30 mls/hr ONCE ONCE IV 07/08/19 10:00 07/08/19 13:59 Sorbitol (Sorbitol) 30 ml Q8HR ORAL 07/08/19 07:07 08/07/19 07:06 Sina Metcalf MD Jul 08, 2019 08:22
[2019-07-08] MEDS: Carvedilol 6.25mg Tab ORAL SCH ×2 (09:44→21:37)
[2019-07-08] MEDS: Heparin 5000 units/ml inj SUBQ SCH ×2 (09:46→21:37)
[2019-07-08] MEDS: Morphine Sulfate 2mg/ml Inj(IV/IM USE ONLY) IVP PRN (09:50)
[2019-07-08] MEDS ORDERED: NACL 3% IV ONE (10:00)
--- NOTE | 2019-07-08 11:24 | Consultation ---
History of Present Illness General Chief Complaint: Abdominal Pain Present Illness Allergies: Coded Allergies: No Known Allergies (Unverified , 06/30/19) Medication History Scheduled Azithromycin* (Zithromax*), 250 MG ORAL DAILY Scheduled PRN Albuterol Sulfate* (Albuterol Sulfate Mdi*), 2 PUFF INH Q4H PRN for cough/ wheezing Patient History Healthcare decision maker Resuscitation status Full Code Advanced Directive on File Physical Exam Last 24 Hour Vital Signs Date Time Temp Pulse Resp B/P (MAP) Pulse Ox O2 Delivery O2 Flow Rate FiO2 07/08/19 09:44 103 130/85 07/08/19 09:00 Nasal Cannula 2.0 07/08/19 08:25 103 20 94 Nasal Cannula 2.0 28 07/08/19 08:24 94 Nasal Cannula 2.0 07/08/19 08:00 96.8 86 18 130/85 (100) 100 07/08/19 04:00 85 07/08/19 04:00 85 07/08/19 04:00 97.9 87 18 137/89 (105) 97 07/08/19 00:00 98.1 90 18 147/85 (105) 100 07/07/19 21:46 96 Nasal Cannula 2.0 28 07/07/19 21:00 Nasal Cannula 2.0 07/07/19 20:27 102 145/87 07/07/19 20:00 98.1 102 20 145/87 (106) 95 07/07/19 20:00 101 07/07/19 16:00 95 07/07/19 16:00 98.6 76 18 136/82 (100) 96 07/07/19 12:00 97.3 80 20 130/87 (101) 96 07/07/19 12:00 96 Intake and Output 07/07/19 07/08/19 19:00 07:00 Intake Total 260 ml Output Total 300 ml Balance 260 ml -300 ml Intake Oral 260 ml Output Urine Total 300 ml Laboratory Tests Test 07/07/19 17:30 07/08/19 06:44 Sodium Level 122 MMOL/L (136-145) L 124 MMOL/L (136-145) L Potassium Level 4.8 MMOL/L (3.5-5.1) Chloride Level 89 MMOL/L (98-107) L Carbon Dioxide Level 26 MMOL/L (21-32) Anion Gap 10 mmol/L (5-15) Blood Urea Nitrogen 28 mg/dL (7-18) H Creatinine 0.9 MG/DL (0.55-1.30) Estimat Glomerular Filtration Rate mL/min (>60) Glucose Level 103 MG/DL (74-106) Calcium Level 9.0 MG/DL (8.5-10.1) Height (Feet): 5 Height (Inches): 5.00 Weight (Pounds): 205 Medications Current Medications Medications (Trade) Dose Ordered Sig/Tiffani Route PRN Reason Start Time Stop Time Status Last Admin Dose Admin Albuterol/ Ipratropium (Albuterol/ Ipratropium) 3 ml Q6H PRN HHN Shortness of Breath 07/06/19 20:00 07/11/19 19:59 Carvedilol (Coreg) 6.25 mg EVERY 12 HOURS ORAL 07/06/19 09:00 08/05/19 08:59 07/08/19 09:44 Ceftriaxone Sodium 1 gm/ Dextrose 55 ml @ 110 mls/hr Q24H IVPB 07/05/19 12:00 07/12/19 11:59 07/07/19 13:00 Dextrose (Dextrose 50%) 25 ml Q30M PRN IV Hypoglycemia 07/05/19 10:15 08/04/19 10:14 Dextrose (Dextrose 50%) 50 ml Q30M PRN IV Hypoglycemia 07/05/19 10:15 08/04/19 10:14 Furosemide (Lasix) 40 mg DAILY IV 07/05/19 11:00 08/04/19 10:59 07/08/19 09:43 Heparin Sodium (Porcine) (Heparin 5000 units/ml) 5,000 units EVERY 12 HOURS SUBQ 07/05/19 21:00 08/04/19 20:59 07/08/19 09:46 Hydralazine HCl (Apresoline) 25 mg Q6H PRN ORAL For High Blood Pressure 07/06/19 08:30 08/05/19 08:29 Metronidazole 100 ml @ 100 mls/hr Q8H IVPB 07/07/19 23:00 07/14/19 22:59 07/08/19 06:34 Morphine Sulfate (Morphine Sulfate) 1 mg Q4H PRN IVP For Pain 07/06/19 20:00 07/13/19 19:59 07/08/19 09:50 Ondansetron HCl (Zofran) 4 mg Q6H PRN IVP Nausea & Vomiting 07/05/19 10:15 08/04/19 10:14 07/05/19 22:08 Sodium Chloride 120 ml @ 30 mls/hr ONCE ONCE IV 07/08/19 10:00 07/08/19 13:59 Sorbitol (Sorbitol) 30 ml Q8HR ORAL 07/08/19 07:07 08/07/19 07:06 07/08/19 07:07 Assessment/Plan Assessment/Plan: Hematology Oncology Consult REQ MD: Ty Schaefer RFC: Evaluation of peritoneal carcinomatosis DOS: 07/08/19 HPI 74-year-old female with history of hypertension. She was told that she has a history of COPD but not on medication. She presents with chief complaint of abdominal pain with shortness of breath. She was here on Thanksgiving for the similar symptoms. She had abdominal pain with nausea vomiting and diarrhea. She was also short of breath. She had wheezing. Chest x-ray showed a possible right lower lobe consolidation. Wheezing improved after breathing treatment. Patient was discharged home on antibiotics. The diarrhea and vomiting improved. She is now has some abdominal fullness and tenderness. She still felt very weak and tired. Still feels short of breath. Finish her antibiotics today. No relief. Denies any fever chills but denies any chest pain. Worse with exertion. Better with rest. Since admission, had a ct scan showed periotneal carcinomatosis, with e/o large right pleural effusion, has also a thora that was done and shows malignant cells that may be of mullerian origin Allergies: Coded Allergies: No Known Allergies (Unverified , 06/30/19) Past Medical History: see triage record, old chart reviewed, HTN Past Surgical History: none Pertinent Family History: none Social History: Denies: smoking Immunizations: other Reviewed Nursing Documentation: PMH: Agreed; PSxH: Agreed Past Medical History: No History, Except For Hx Hypertension: Yes Review of Systems Constitutional: Reports: malaise, weakness Eye: Denies: eye pain, blurred vision ENT: Denies: ear pain, nose congestion, throat swelling Respiratory: Reports: cough, shortness of breath Cardiovascular: Denies: chest pain, palpitations Gastrointestinal: Reports: abdominal pain; Denies: diarrhea, nausea, vomiting Musculoskeletal: Denies: back pain, joint pain Skin: Denies: rash Endocrine: Denies: increased thirst, increased urine Hematologic/Lymphatic: Denies: easy bruising All Other Systems: negative except mentioned in HPI PE Vitals: noted Gen: well appearing, alert, mild distress Respiratory: chest non-tender, decreased breath sounds, wheezing Cardiovascular: regular rate, rhythm, no murmur Gastrointestinal: normal bowel sounds, no mass, no organomegaly, no bruit, non- distended, tenderness - Abdominal pain, mild, diffuse Musculoskeletal: back normal, normal range of motion, gait/station normal Psychiatric: mood/affect normal Ext: no cce Neuro: tired and confused Assessment and Recs # 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 Does have lung involvement --> pelvic us has been ordered to see if improvement coordinator source present --> imaging is noted, CT Abdominal ascites. Suspect infiltration of the omentum by soft tissue, worrisome for peritoneal carcinomatosis/massive ascites --> drainage of pleural effusion on prn basis, may need eventual catheter --> will obtain further staining of thora fluid to further eval --> get outpatient pet, for further eval, it is stage IV --> may require outpatient chemotherapy with a bevacizumab-based regimen # Leukocytosis may be due to malginancy --> r/o infection, is on ceftriaxone # Thrombocytosis also related to malignancy --> unlikely myelofproliferative d/o --> trend as needed [id number] # Pleural effusion, right --> drain as needed with thora # COPD with exacerbation --> steriods prn, breathing rx --> per pulm # Malignant ascites # Acute hyponatremia # Abdominal pain DW RN and appreciate consultation. Selvin Atkins MD Jul 08, 2019 11:24
[2019-07-08 12:00] VITALS: BP 141/86
[2019-07-08] MEDS: cefTRIAXone 1 GM in D5W 55 ML IVPB SCH (12:16)
--- NOTE | 2019-07-08 13:23 | Infectious Diseases Prog Note ---
Assessment/Plan Assessment/Plan Assessment: Sepsis vs SIRS Afebrile Leukocytosis- ?reactive vs infectious process- r/o intraabdominal infection, parapneunomic pleural effusion Abd pain, vomiting, diarrhea- ?peritoneal carcinomatosis -CT c/abd/p: Abdominal ascites. Suspect infiltration of the omentum by soft tissue, worrisome for peritoneal carcinomatosis. Equivocal hepatic surface nodularity, could indicate early cirrhotic change if real. Ultrasound may be useful for further evaluation. Bile is dilated fluid-filled proximal small bowel loops, nondilated distal small bowel. This could indicate small bowel obstruction. Large right pleural effusion. Resultant compressive atelectasis of portion of the right lower lobe. Left basilar scarring or atelectasis. Enlarged right thyroid lobe. Consider sonography for further evaluation. Cholelithiasis. Large R pleural effusion; exudative- ?malignant -07/05 CXR: Resolved right pleural effusion, status post thoracentesis. No radiographically evident complication -07/05 SP R thoracentesis: removal of 600 milliliters of fluid --LDH 299 (serum 222), protein 4.9 (serum 7.7), pH 7.5, glucose 59; cx NTD Ascites -07/06 sp paracentesis: removal of 3.35 fluid -no fluid analsysis sent HTN COPD Plan: -cont empiric Ceftriaxone and Flagyl #4/5-7 -07/05 SP Levaquin x1 -f/u cx -Monitor CBC/CMP, temperatures -f/u Cdiff, stool cx, Influenza sc -aspiration precautions Thank you for conulting [facility]. Will continue to follow along with you. Discussed with RN. Subjective Allergies: Coded Allergies: No Known Allergies (Unverified , 06/30/19) Subjective afebrile wbc increased Objective Vital Signs Last 24 Hour Vital Signs Date Time Temp Pulse Resp B/P (MAP) Pulse Ox O2 Delivery O2 Flow Rate FiO2 07/08/19 12:00 98.1 102 20 141/86 (104) 96 07/08/19 09:44 103 130/85 07/08/19 09:00 Nasal Cannula 2.0 07/08/19 08:25 103 20 94 Nasal Cannula 2.0 28 07/08/19 08:24 94 Nasal Cannula 2.0 07/08/19 08:00 98 07/08/19 08:00 96.8 86 18 130/85 (100) 100 07/08/19 04:00 85 07/08/19 04:00 85 07/08/19 04:00 97.9 87 18 137/89 (105) 97 07/08/19 00:00 98.1 90 18 147/85 (105) 100 07/07/19 21:46 96 Nasal Cannula 2.0 28 07/07/19 21:00 Nasal Cannula 2.0 07/07/19 20:27 102 145/87 07/07/19 20:00 98.1 102 20 145/87 (106) 95 07/07/19 20:00 101 07/07/19 16:00 95 07/07/19 16:00 98.6 76 18 136/82 (100) 96 Height (Feet): 5 Height (Inches): 5.00 Weight (Pounds): 205 Objective General Appearance: well appearing, alert, mild distress Head: normocephalic, atraumatic Eyes: bilateral eye PERRL, bilateral eye EOMI ENT: hearing grossly normal, normal pharynx Neck: full range of motion, supple, no meningismus Respiratory: chest non-tender, decreased breath sounds, accessory muscle use, wheezing Cardiovascular #1: regular rate, rhythm, no murmur Gastrointestinal: normal bowel sounds, no mass, no organomegaly, no bruit, non- distended, tenderness - Abdominal pain, mild, diffuse Musculoskeletal: back normal, normal range of motion, gait/station normal Psychiatric: mood/affect normal Microbiology Date/Time Source Procedure Growth Status 07/06/19 13:01 Body Fluid Other Gram Stain - Final Resulted 07/06/19 13:01 Body Fluid Other Body Fluid Culture - Preliminary NO GROWTH Resulted 07/05/19 15:30 Pleural Fluid Gram Stain - Final Resulted 07/05/19 15:30 Pleural Fluid Body Fluid Culture - Preliminary NO GROWTH AFTER 72 HOURS Resulted Laboratory Tests Test 07/07/19 17:30 07/08/19 06:44 Sodium Level 122 MMOL/L (136-145) L 124 MMOL/L (136-145) L Potassium Level 4.8 MMOL/L (3.5-5.1) Chloride Level 89 MMOL/L (98-107) L Carbon Dioxide Level 26 MMOL/L (21-32) Anion Gap 10 mmol/L (5-15) Blood Urea Nitrogen 28 mg/dL (7-18) H Creatinine 0.9 MG/DL (0.55-1.30) Estimat Glomerular Filtration Rate mL/min (>60) Glucose Level 103 MG/DL (74-106) Calcium Level 9.0 MG/DL (8.5-10.1) Current Medications Medications (Trade) Dose Ordered Sig/Tiffani Route PRN Reason Start Time Stop Time Status Last Admin Dose Admin Albuterol/ Ipratropium (Albuterol/ Ipratropium) 3 ml Q6H PRN HHN Shortness of Breath 07/06/19 20:00 07/11/19 19:59 Carvedilol (Coreg) 6.25 mg EVERY 12 HOURS ORAL 07/06/19 09:00 08/05/19 08:59 07/08/19 09:44 Ceftriaxone Sodium 1 gm/ Dextrose 55 ml @ 110 mls/hr Q24H IVPB 07/05/19 12:00 07/12/19 11:59 07/08/19 12:16 Dextrose (Dextrose 50%) 25 ml Q30M PRN IV Hypoglycemia 07/05/19 10:15 08/04/19 10:14 Dextrose (Dextrose 50%) 50 ml Q30M PRN IV Hypoglycemia 07/05/19 10:15 08/04/19 10:14 Furosemide (Lasix) 40 mg DAILY IV 07/05/19 11:00 08/04/19 10:59 07/08/19 09:43 Heparin Sodium (Porcine) (Heparin 5000 units/ml) 5,000 units EVERY 12 HOURS SUBQ 07/05/19 21:00 08/04/19 20:59 07/08/19 09:46 Hydralazine HCl (Apresoline) 25 mg Q6H PRN ORAL For High Blood Pressure 07/06/19 08:30 08/05/19 08:29 Metronidazole 100 ml @ 100 mls/hr Q8H IVPB 07/07/19 23:00 07/14/19 22:59 07/08/19 06:34 Morphine Sulfate (Morphine Sulfate) 1 mg Q4H PRN IVP For Pain 07/06/19 20:00 07/13/19 19:59 07/08/19 09:50 Ondansetron HCl (Zofran) 4 mg Q6H PRN IVP Nausea & Vomiting 07/05/19 10:15 08/04/19 10:14 07/05/19 22:08 Sodium Chloride 120 ml @ 30 mls/hr ONCE ONCE IV 07/08/19 10:00 07/08/19 13:59 07/08/19 10:00 Sorbitol (Sorbitol) 30 ml Q8HR ORAL 07/08/19 07:07 08/07/19 07:06 07/08/19 07:07 Fartun Milton M.D. Jul 08, 2019 13:23
--- NOTE | 2019-07-08 15:56 | Diagnostic Imaging Report ---
Indication: Pelvic pain, elevated CA 125 Technique: Transabdominal and transvaginal images of the pelvis there are Doppler interrogation of the ovaries Comparison: No comparison sonograms. Reference made to abdomen pelvis CT dated 07/05/2019 Findings: Uterus is retroverted, measures 8.1 cm length by 6.3 cm AP. The endometrium could not clearly be demonstrated. There is a central mixed echogenicity structure, mostly slightly hypoechoic, measuring 5.3 x 5 cm in diameter. There is a structure is resembling an ovary in the expected region of the left ovary, measures 4.7 cm in length. Similar structure demonstrated on the right measures 4.8 cm in length, demonstrates an irregular 3.9 cm area of fluid. Both of these structures demonstrate normal Doppler flow. There is trace free cul-de-sac fluid Impression: Enlarged uterus with central 5.3 x 5 cm mixed echogenicity masslike lesion. In retrospect, prior CT does demonstrate some heterogeneous attenuation in this area. While possibly representing a uterine fibroid, patient age and evidence of metastatic intraperitoneal malignancy raises concern for malignant neoplasm as etiology of this finding. Bilateral adnexal structures which resemble ovaries but are unusually large for a postmenopausal female. That on the right demonstrates an irregular 3.9 cm cystic structure. These could represent exophytic uterine fibroids or just represent unusual enlarged ovaries, but the possibility of bilateral ovarian neoplasm should definitely be considered, particularly in view of the CT findings. Trace free intraperitoneal fluid
[2019-07-08 16:00] VITALS: BP 121/57
--- NOTE | 2019-07-08 18:39 | General Progress Note ---
Assessment/Plan Assessment/Plan: Assessment - Malignant pleural effusion. - Malignant ascites, carcinomatosis - COPD - nodular liver, r/o cirrhosis - N/V/D Recommendations - paracentesis - f/u hepatitis serologies - check stool tests - oncology Rx Subjective Allergies: Coded Allergies: No Known Allergies (Unverified , 06/30/19) Subjective Above noted thoracentesis fluid --> malignancy, Mullerian origin Paracentesis fluid --> Malignant cells identified Objective Last 24 Hour Vital Signs Date Time Temp Pulse Resp B/P (MAP) Pulse Ox O2 Delivery O2 Flow Rate FiO2 07/08/19 16:00 97.6 88 20 121/57 (78) 96 07/08/19 16:00 86 07/08/19 12:00 98.1 102 20 141/86 (104) 96 07/08/19 12:00 109 07/08/19 09:44 103 130/85 07/08/19 09:00 Nasal Cannula 2.0 07/08/19 08:25 103 20 94 Nasal Cannula 2.0 28 07/08/19 08:24 94 Nasal Cannula 2.0 07/08/19 08:00 98 07/08/19 08:00 96.8 86 18 130/85 (100) 100 07/08/19 04:00 85 07/08/19 04:00 85 07/08/19 04:00 97.9 87 18 137/89 (105) 97 07/08/19 00:00 98.1 90 18 147/85 (105) 100 07/07/19 21:46 96 Nasal Cannula 2.0 28 07/07/19 21:00 Nasal Cannula 2.0 07/07/19 20:27 102 145/87 07/07/19 20:00 98.1 102 20 145/87 (106) 95 07/07/19 20:00 101 Intake and Output 07/07/19 07/08/19 19:00 07:00 Intake Total 260 ml Output Total 300 ml Balance 260 ml -300 ml Intake Oral 260 ml Output Urine Total 300 ml Laboratory Tests 07/08/19 06:44: Sodium Level 124L, Potassium Level 4.8, Chloride Level 89L, Carbon Dioxide Level 26, Anion Gap 10, Blood Urea Nitrogen 28H, Creatinine 0.9, Estimat Glomerular Filtration Rate , Glucose Level 103, Calcium Level 9.0 Height (Feet): 5 Height (Inches): 5.00 Weight (Pounds): 205 Objective NCAT supple Coarse BS RR abd distended Bhavana West MD Jul 08, 2019 18:39
[2019-07-08 20:00] VITALS: BP 118/84
[2019-07-09] VITALS: BP 132/80
[2019-07-09] MEDS ORDERED: Albuterol/Ipratropium 3ml neb HHN PRN (01:30)
[2019-07-09] MEDS ORDERED: HydrALAZINE 25mg tab ORAL PRN (01:30)
[2019-07-09 04:00] VITALS: BP 136/75
[2019-07-09] MEDS: Sorbitol Solution UD 30ml ORAL SCH ×4 (05:59→21:46)
[2019-07-09 08:00] VITALS: BP 150/84
--- NOTE | 2019-07-09 08:11 | Nephrology Progress Note ---
Assessment/Plan Assessment/Plan: A/P 1. 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 - lasix, AM labs pending 2. Shortness of breath secondary to large right-sided pleural effusion with compressive atelectasis, most likely malignant in nature. - s/p 600 ml thoracentesis and 3.4 L paracentesis 3. Abdominal pain with carcinomatosis and malignant ascites. 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 Leukocytosis with unclear etiology. Per ID - emperic Abx initiated. 5. GI prophylaxis with famotidine. 6. DVT prophylaxis with heparin subcutaneous. Plan to DC once Oncology ascertain out patient treatment. DC home with HH likely Thursday Subjective Date patient seen: Jul 09, 2019 Time patient seen: 08:08 ROS Limited/Unobtainable: No Allergies: Coded Allergies: No Known Allergies (Unverified , 06/30/19) Subjective Patient up in bed. No oevrt distress Objective Last 24 Hour Vital Signs Date Time Temp Pulse Resp B/P (MAP) Pulse Ox O2 Delivery O2 Flow Rate FiO2 07/09/19 04:00 98.7 86 20 136/75 (95) 98 07/09/19 00:00 96.9 86 19 132/80 (97) 98 07/09/19 00:00 86 07/08/19 21:37 100 118/85 07/08/19 21:00 Nasal Cannula 2.0 07/08/19 20:00 96 07/08/19 20:00 97.7 88 18 118/84 (95) 91 07/08/19 16:00 97.6 88 20 121/57 (78) 96 07/08/19 16:00 86 07/08/19 12:00 98.1 102 20 141/86 (104) 96 07/08/19 12:00 109 07/08/19 09:44 103 130/85 07/08/19 09:00 Nasal Cannula 2.0 07/08/19 08:25 103 20 94 Nasal Cannula 2.0 28 07/08/19 08:24 94 Nasal Cannula 2.0 Intake and Output 07/08/19 07/09/19 19:00 07:00 Intake Total 120 ml Output Total 900 ml Balance -780 ml Intake Oral 120 ml Output Urine Total 900 ml # Voids 3 1 # Bowel Movements 1 Laboratory Tests 07/08/19 21:40: Stool Occult Blood [Pending] Height (Feet): 5 Height (Inches): 5.00 Weight (Pounds): 205 General Appearance: no apparent distress EENT: normal ENT inspection Neck: normal alignment, supple Cardiovascular: normal rate, regular rhythm Respiratory/Chest: rhonchi - bilaterally Abdomen: non tender, soft Edema: no edema noted Arm (L), no edema noted Arm (R), no edema noted Leg (L), no edema noted Leg (R), no edema noted Pedal (L), no edema noted Pedal (R), no edema noted Generalized Ty Schaefer MD Jul 09, 2019 08:11
[2019-07-09 08:21] LABS: HEMATOCRIT 38.9 % (37.0-47.0); HEMOGLOBIN 12.5 G/DL (12.0-16.0); MEAN CORPUSCULAR VOLUME 79 FL (80-99); PLATELET COUNT 1000 K/UL (150-450); RED BLOOD COUNT 4.92 M/UL (4.20-5.40); RED CELL DISTRIBUTION WIDTH 11.7 % (11.6-14.8); WHITE BLOOD COUNT 20.4 K/UL (4.8-10.8)
[2019-07-09 08:49] LABS: ALANINE AMINOTRANSFERASE 19 U/L (12-78); ALBUMIN 2.2 G/DL (3.4-5.0); ALBUMIN/GLOBULIN RATIO 0.5 (1.0-2.7); ALKALINE PHOSPHATASE 102 U/L (46-116); ANION GAP 6 mmol/L (5-15); ASPARTATE AMINO TRANSFERASE 31 U/L (15-37); BILIRUBIN,TOTAL 0.3 MG/DL (0.2-1.0); BLOOD UREA NITROGEN 30 mg/dL (7-18); CALCIUM 8.9 MG/DL (8.5-10.1); CARBON DIOXIDE 30 MMOL/L (21-32); CHLORIDE 92 MMOL/L (98-107); POTASSIUM 4.3 MMOL/L (3.5-5.1); SODIUM 128 MMOL/L (136-145)
[2019-07-09] MEDS: Carvedilol 6.25mg Tab ORAL SCH ×2 (09:16→21:44)
[2019-07-09] MEDS: Heparin 5000 units/ml inj SUBQ SCH ×2 (09:19→21:45)
--- NOTE | 2019-07-09 10:43 | Pulmonology Progress Note ---
Assessment/Plan Assessment/Plan IMPRESSION: 1. Right lung pneumonia. 2. Right pleural effusion. 3. Hyponatremia. 4. Hyperglycemia. 5. Hypertension. 6. COPD. 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 Agree with breathing treatments and oxygen. I will follow carefully. S/p thoracentesis Cytology confirms malignancy Discussed with Dr. Hernandez Oncologic eval noted Sina Mectalf M.D. Subjective Interval Events: Seen by oncology; on low flow O2 Constitutional: Reports: no symptoms HEENT: Repors: no symptoms Respiratory: Reports: no symptoms Cardiovascular: Reports: no symptoms Gastrointestinal/Abdominal: Reports: no symptoms Allergies: Coded Allergies: No Known Allergies (Unverified , 06/30/19) Objective Last 24 Hour Vital Signs Date Time Temp Pulse Resp B/P (MAP) Pulse Ox O2 Delivery O2 Flow Rate FiO2 07/09/19 09:16 95 150/84 07/09/19 08:00 96.0 95 18 150/84 (106) 97 07/09/19 04:00 98.7 86 20 136/75 (95) 98 07/09/19 00:00 96.9 86 19 132/80 (97) 98 07/09/19 00:00 86 07/08/19 21:37 100 118/85 07/08/19 21:00 Nasal Cannula 2.0 07/08/19 20:00 96 07/08/19 20:00 97.7 88 18 118/84 (95) 91 07/08/19 16:00 97.6 88 20 121/57 (78) 96 07/08/19 16:00 86 07/08/19 12:00 98.1 102 20 141/86 (104) 96 07/08/19 12:00 109 Intake and Output 07/08/19 07/09/19 19:00 07:00 Intake Total 120 ml Output Total 900 ml Balance -780 ml Intake Oral 120 ml Output Urine Total 900 ml # Voids 3 1 # Bowel Movements 1 General Appearance: no acute distress HEENT: normocephalic Respiratory/Chest: chest wall non-tender Cardiovascular: normal peripheral pulses Abdomen: normal bowel sounds Microbiology Date/Time Source Procedure Growth Status 07/06/19 13:01 Body Fluid Other Gram Stain - Final Resulted 07/06/19 13:01 Body Fluid Other Body Fluid Culture - Preliminary NO GROWTH AFTER 48 HOURS Resulted Laboratory Tests 07/08/19 21:40: Stool Occult Blood [Pending] 07/09/19 07:37: White Blood Count 20.4H, Red Blood Count 4.92, Hemoglobin 12.5, Hematocrit 38.9 , Mean Corpuscular Volume 79L, Mean Corpuscular Hemoglobin 25.4L, Mean Corpuscular Hemoglobin Concent 32.1, Red Cell Distribution Width 11.7, Platelet Count 1000H, Mean Platelet Volume 4.3L, Neutrophils (%) (Auto) , Lymphocytes (% ) (Auto) , Monocytes (%) (Auto) , Eosinophils (%) (Auto) , Basophils (%) (Auto) , Neutrophils % (Manual) [Pending], Lymphocytes % (Manual) [Pending], Platelet Estimate [Pending], Platelet Morphology [Pending], Sodium Level 128L, Potassium Level 4.3, Chloride Level 92L, Carbon Dioxide Level 30, Anion Gap 6, Blood Urea Nitrogen 30H, Creatinine 1.0, Estimat Glomerular Filtration Rate , Glucose Level 109H, Calcium Level 8.9, Total Bilirubin 0.3, Aspartate Amino Transf (AST/ SGOT) 31, Alanine Aminotransferase (ALT/SGPT) 19, Alkaline Phosphatase 102, Total Protein 6.8, Albumin 2.2L, Globulin 4.6, Albumin/Globulin Ratio 0.5L Current Medications Medications (Trade) Dose Ordered Sig/Tiffani Route PRN Reason Start Time Stop Time Status Last Admin Dose Admin Albuterol/ Ipratropium (Albuterol/ Ipratropium) 3 ml Q6H PRN HHN Shortness of Breath 07/09/19 01:30 07/11/19 01:29 Carvedilol (Coreg) 6.25 mg EVERY 12 HOURS ORAL 07/09/19 09:00 08/05/19 08:59 07/09/19 09:16 Ceftriaxone Sodium 1 gm/ Dextrose 55 ml @ 110 mls/hr Q24H IVPB 07/09/19 12:00 07/12/19 11:59 Dextrose (Dextrose 50%) 25 ml Q30M PRN IV Hypoglycemia 07/09/19 01:30 08/04/19 01:29 Dextrose (Dextrose 50%) 50 ml Q30M PRN IV Hypoglycemia 07/09/19 01:30 08/04/19 01:29 Furosemide (Lasix) 40 mg DAILY IV 07/09/19 09:00 08/04/19 10:59 07/09/19 09:20 Heparin Sodium (Porcine) (Heparin 5000 units/ml) 5,000 units EVERY 12 HOURS SUBQ 07/09/19 09:00 08/04/19 20:59 07/09/19 09:19 Hydralazine HCl (Apresoline) 25 mg Q6H PRN ORAL For High Blood Pressure 07/09/19 01:30 08/05/19 01:29 Metronidazole 100 ml @ 100 mls/hr Q8H IVPB 07/09/19 07:00 07/14/19 22:59 07/09/19 05:59 Morphine Sulfate (Morphine Sulfate) 1 mg Q4H PRN IVP For Pain 07/09/19 01:30 07/13/19 01:29 Ondansetron HCl (Zofran) 4 mg Q6H PRN IVP Nausea & Vomiting 07/09/19 01:30 08/04/19 01:29 Sorbitol (Sorbitol) 30 ml Q8HR ORAL 07/09/19 06:00 08/07/19 07:06 07/09/19 05:59 Sina Metcalf MD Jul 09, 2019 10:43
[2019-07-09 12:00] VITALS: BP 132/86
[2019-07-09] MEDS: cefTRIAXone 1 GM in D5W 55 ML IVPB SCH (12:00)
--- NOTE | 2019-07-09 12:47 | Infectious Diseases Prog Note ---
Assessment/Plan Assessment/Plan Assessment: Sepsis vs SIRS Afebrile Leukocytosis- ?reactive vs infectious process- r/o intraabdominal infection, parapneunomic pleural effusion Abd pain, vomiting, diarrhea- ?peritoneal carcinomatosis -CT c/abd/p: Abdominal ascites. Suspect infiltration of the omentum by soft tissue, worrisome for peritoneal carcinomatosis. Equivocal hepatic surface nodularity, could indicate early cirrhotic change if real.Ultrasound may be useful for further evaluation. Bile is dilated fluid-filled proximal small bowel loops, nondilated distal small bowel. This could indicate small bowel obstruction. Large right pleural effusion. Resultant compressive atelectasis of portion of the right lower lobe. Left basilar scarring or atelectasis. Enlarged right thyroid lobe. Consider sonography for further evaluation. Cholelithiasis. UTERin mass -pelvic US: Enlarged uterus with central 5.3 x 5 cm mixed echogenicity masslike lesion. In retrospect, prior CT does demonstrate some heterogeneous attenuation in this area. While possibly representing a uterine fibroid, patient age and evidence of metastatic intraperitoneal malignancy raises concern for malignant neoplasm as etiology of this finding. Bilateral adnexal structures which resemble ovaries but are unusually large for a postmenopausal female. That on the right demonstrates an irregular 3.9 cm cystic structure. These could represent exophytic uterine fibroids or just represent unusual enlarged ovaries, but the possibility of bilateral ovarian neoplasm should definitely be considered, particularly in view of the CT findings. Trace free intraperitoneal fluid Large R pleural effusion; exudative- ?malignant -07/05 CXR: Resolved right pleural effusion, status post thoracentesis. No radiographically evident complication -07/05 SP R thoracentesis: removal of 600 milliliters of fluid --LDH 299 (serum 222), protein 4.9 (serum 7.7), pH 7.5, glucose 59; cx NTD Ascites -07/06 sp paracentesis: removal of 3.35 fluid -no fluid analsysis sent; cx NTD HTN COPD Plan: -cont empiric Ceftriaxone and Flagyl #5/5-7 -07/05 SP Levaquin x1 -f/u cx -Monitor CBC/CMP, temperatures -f/u Cdiff, stool cx, Influenza sc -aspiration precautions -heme/onc f/u Thank you for conulting [facility]. Will continue to follow along with you. Discussed with RN. Subjective Allergies: Coded Allergies: No Known Allergies (Unverified , 06/30/19) Subjective afebrile wbc increased Objective Vital Signs Last 24 Hour Vital Signs Date Time Temp Pulse Resp B/P (MAP) Pulse Ox O2 Delivery O2 Flow Rate FiO2 07/09/19 12:00 98.0 80 18 132/86 (101) 100 07/09/19 09:16 95 150/84 07/09/19 09:00 Nasal Cannula 2.0 07/09/19 08:00 96.0 95 18 150/84 (106) 97 07/09/19 04:00 98.7 86 20 136/75 (95) 98 07/09/19 00:00 96.9 86 19 132/80 (97) 98 07/09/19 00:00 86 07/08/19 21:37 100 118/85 07/08/19 21:00 Nasal Cannula 2.0 07/08/19 20:00 96 07/08/19 20:00 97.7 88 18 118/84 (95) 91 07/08/19 16:00 97.6 88 20 121/57 (78) 96 07/08/19 16:00 86 Height (Feet): 5 Height (Inches): 5.00 Weight (Pounds): 205 Objective General Appearance: well appearing, alert, mild distress Head: normocephalic, atraumatic Eyes: bilateral eye PERRL, bilateral eye EOMI ENT: hearing grossly normal, normal pharynx Neck: full range of motion, supple, no meningismus Respiratory: chest non-tender, decreased breath sounds, accessory muscle use, wheezing Cardiovascular #1: regular rate, rhythm, no murmur Gastrointestinal: normal bowel sounds, no mass, no organomegaly, no bruit, non- distended, tenderness - Abdominal pain, mild, diffuse Musculoskeletal: back normal, normal range of motion, gait/station normal Psychiatric: mood/affect normal Microbiology Date/Time Source Procedure Growth Status 07/06/19 13:01 Body Fluid Other Gram Stain - Final Resulted 07/06/19 13:01 Body Fluid Other Body Fluid Culture - Preliminary NO GROWTH AFTER 48 HOURS Resulted Laboratory Tests Test 07/08/19 21:40 07/09/19 07:37 Stool Occult Blood Pending White Blood Count 20.4 K/UL (4.8-10.8) H Red Blood Count 4.92 M/UL (4.20-5.40) Hemoglobin 12.5 G/DL (12.0-16.0) Hematocrit 38.9 % (37.0-47.0) Mean Corpuscular Volume 79 FL (80-99) L Mean Corpuscular Hemoglobin 25.4 PG (27.0-31.0) L Mean Corpuscular Hemoglobin Concent 32.1 G/DL (32.0-36.0) Red Cell Distribution Width 11.7 % (11.6-14.8) Platelet Count 1000 K/UL (150-450) H Mean Platelet Volume 4.3 FL (6.5-10.1) L Neutrophils (%) (Auto) % (45.0-75.0) Lymphocytes (%) (Auto) % (20.0-45.0) Monocytes (%) (Auto) % (1.0-10.0) Eosinophils (%) (Auto) % (0.0-3.0) Basophils (%) (Auto) % (0.0-2.0) Differential Total Cells Counted 100 Neutrophils % (Manual) 81 % (45-75) H Lymphocytes % (Manual) 10 % (20-45) L Monocytes % (Manual) 7 % (1-10) Eosinophils % (Manual) 1 % (0-3) Basophils % (Manual) 1 % (0-2) Band Neutrophils 0 % (0-8) Nucleated Red Blood Cells /100 WBC Platelet Estimate Increased H Platelet Morphology Normal Red Blood Cell Morphology Normal Sodium Level 128 MMOL/L (136-145) L Potassium Level 4.3 MMOL/L (3.5-5.1) Chloride Level 92 MMOL/L (98-107) L Carbon Dioxide Level 30 MMOL/L (21-32) Anion Gap 6 mmol/L (5-15) Blood Urea Nitrogen 30 mg/dL (7-18) H Creatinine 1.0 MG/DL (0.55-1.30) Estimat Glomerular Filtration Rate mL/min (>60) Glucose Level 109 MG/DL (74-106) H Calcium Level 8.9 MG/DL (8.5-10.1) Total Bilirubin 0.3 MG/DL (0.2-1.0) Aspartate Amino Transf (AST/SGOT) 31 U/L (15-37) Alanine Aminotransferase (ALT/SGPT) 19 U/L (12-78) Alkaline Phosphatase 102 U/L (46-116) Total Protein 6.8 G/DL (6.4-8.2) Albumin 2.2 G/DL (3.4-5.0) L Globulin 4.6 g/dL Albumin/Globulin Ratio 0.5 (1.0-2.7) L Current Medications Medications (Trade) Dose Ordered Sig/Tiffani Route PRN Reason Start Time Stop Time Status Last Admin Dose Admin Albuterol/ Ipratropium (Albuterol/ Ipratropium) 3 ml Q6H PRN HHN Shortness of Breath 07/09/19 01:30 07/11/19 01:29 Carvedilol (Coreg) 6.25 mg EVERY 12 HOURS ORAL 07/09/19 09:00 08/05/19 08:59 07/09/19 09:16 Ceftriaxone Sodium 1 gm/ Dextrose 55 ml @ 110 mls/hr Q24H IVPB 07/09/19 12:00 07/12/19 11:59 07/09/19 12:00 Dextrose (Dextrose 50%) 25 ml Q30M PRN IV Hypoglycemia 07/09/19 01:30 08/04/19 01:29 Dextrose (Dextrose 50%) 50 ml Q30M PRN IV Hypoglycemia 07/09/19 01:30 08/04/19 01:29 Furosemide (Lasix) 40 mg DAILY IV 07/09/19 09:00 08/04/19 10:59 07/09/19 09:20 Heparin Sodium (Porcine) (Heparin 5000 units/ml) 5,000 units EVERY 12 HOURS SUBQ 07/09/19 09:00 08/04/19 20:59 07/09/19 09:19 Hydralazine HCl (Apresoline) 25 mg Q6H PRN ORAL For High Blood Pressure 07/09/19 01:30 08/05/19 01:29 Metronidazole 100 ml @ 100 mls/hr Q8H IVPB 07/09/19 07:00 07/14/19 22:59 07/09/19 12:29 Morphine Sulfate (Morphine Sulfate) 1 mg Q4H PRN IVP For Pain 07/09/19 01:30 07/13/19 01:29 Ondansetron HCl (Zofran) 4 mg Q6H PRN IVP Nausea & Vomiting 12/7/19 01:30 08/04/19 01:29 Sorbitol (Sorbitol) 30 ml Q8HR ORAL 07/09/19 06:00 08/07/19 07:06 07/09/19 05:59 Fartun Milton M.D. Jul 09, 2019 12:47
[2019-07-09 16:00] VITALS: BP 136/82
--- NOTE | 2019-07-09 18:51 | General Progress Note ---
Assessment/Plan Assessment/Plan: Assessment - Malignant pleural effusion. - Malignant ascites, carcinomatosis - COPD - nodular liver, r/o cirrhosis - N/V/D Recommendations - paracentesis - f/u hepatitis serologies - check stool tests - oncology Rx Subjective Allergies: Coded Allergies: No Known Allergies (Unverified , 06/30/19) Subjective Above noted thoracentesis fluid --> malignant Paracentesis fluid --> Malignant above d/w patient Objective Last 24 Hour Vital Signs Date Time Temp Pulse Resp B/P (MAP) Pulse Ox O2 Delivery O2 Flow Rate FiO2 07/09/19 16:00 98.3 84 18 136/82 (100) 100 07/09/19 12:00 98.0 80 18 132/86 (101) 100 07/09/19 09:16 95 150/84 07/09/19 09:00 Nasal Cannula 2.0 07/09/19 08:25 97 Nasal Cannula 2.0 07/09/19 08:00 96.0 95 18 150/84 (106) 97 07/09/19 04:00 98.7 86 20 136/75 (95) 98 07/09/19 00:00 96.9 86 19 132/80 (97) 98 07/09/19 00:00 86 07/08/19 21:37 100 118/85 07/08/19 21:00 Nasal Cannula 2.0 07/08/19 20:00 96 07/08/19 20:00 97.7 88 18 118/84 (95) 91 Intake and Output 07/08/19 07/09/19 19:00 07:00 Intake Total 120 ml Output Total 900 ml Balance -780 ml Intake Oral 120 ml Output Urine Total 900 ml # Voids 3 1 # Bowel Movements 1 Laboratory Tests 07/08/19 21:40: Stool Occult Blood [Pending] 07/09/19 07:37: White Blood Count 20.4H, Red Blood Count 4.92, Hemoglobin 12.5, Hematocrit 38.9 , Mean Corpuscular Volume 79L, Mean Corpuscular Hemoglobin 25.4L, Mean Corpuscular Hemoglobin Concent 32.1, Red Cell Distribution Width 11.7, Platelet Count 1000H, Mean Platelet Volume 4.3L, Neutrophils (%) (Auto) , Lymphocytes (% ) (Auto) , Monocytes (%) (Auto) , Eosinophils (%) (Auto) , Basophils (%) (Auto) , Differential Total Cells Counted 100, Neutrophils % (Manual) 81H, Lymphocytes % (Manual) 10L, Monocytes % (Manual) 7, Eosinophils % (Manual) 1, Basophils % ( Manual) 1, Band Neutrophils 0, Nucleated Red Blood Cells , Platelet Estimate IncreasedH, Platelet Morphology Normal, Red Blood Cell Morphology Normal, Sodium Level 128L, Potassium Level 4.3, Chloride Level 92L, Carbon Dioxide Level 30, Anion Gap 6, Blood Urea Nitrogen 30H, Creatinine 1.0, Estimat Glomerular Filtration Rate , Glucose Level 109H, Calcium Level 8.9, Total Bilirubin 0.3, Aspartate Amino Transf (AST/SGOT) 31, Alanine Aminotransferase ( ALT/SGPT) 19, Alkaline Phosphatase 102, Total Protein 6.8, Albumin 2.2L, Globulin 4.6, Albumin/Globulin Ratio 0.5L Height (Feet): 5 Height (Inches): 5.00 Weight (Pounds): 205 Objective NCAT supple Coarse BS RR abd distended Bhavana West MD Jul 09, 2019 18:51
[2019-07-09 20:00] VITALS: BP 151/75
[2019-07-10] VITALS: BP 148/70
[2019-07-10 04:00] VITALS: BP 142/78
[2019-07-10] MEDS: Sorbitol Solution UD 30ml ORAL SCH (05:09)
[2019-07-10 07:27] LABS: ANION GAP 9 mmol/L (5-15); BLOOD UREA NITROGEN 29 mg/dL (7-18); CALCIUM 9.4 MG/DL (8.5-10.1); CARBON DIOXIDE 27 MMOL/L (21-32); CHLORIDE 93 MMOL/L (98-107); CREATININE 0.9 MG/DL (0.55-1.30); POTASSIUM 4.1 MMOL/L (3.5-5.1); SODIUM 129 MMOL/L (136-145)
--- NOTE | 2019-07-10 07:52 | Nephrology Progress Note ---
Assessment/Plan Assessment/Plan: A/P 1. 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 - lasix, Na up to 129 2. Shortness of breath secondary to large right-sided pleural effusion with compressive atelectasis, most likely malignant in nature. - s/p 600 ml thoracentesis and 3.4 L paracentesis 3. 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 SEALS ENGRAVER US uterine and ovarian mass, elevated CA 125 4. Leukocytosis with unclear etiology. Per ID - emperic Abx initiated. Likely from malignancy 5. GI prophylaxis with famotidine. 6. DVT prophylaxis with heparin subcutaneous. Spoke with patient and daughter. Both want to go home tomorrow with HH. They are declining rehab/SNF Subjective Date patient seen: Jul 10, 2019 Time patient seen: 07:49 ROS Limited/Unobtainable: No Allergies: Coded Allergies: No Known Allergies (Unverified , 06/30/19) Subjective Patient resting. No complaints Objective Last 24 Hour Vital Signs Date Time Temp Pulse Resp B/P (MAP) Pulse Ox O2 Delivery O2 Flow Rate FiO2 07/10/19 04:00 97.3 76 18 142/78 (99) 97 07/10/19 00:00 97.4 78 18 148/70 (96) 07/09/19 21:44 85 135/75 07/09/19 21:00 Nasal Cannula 2.0 07/09/19 20:00 97.8 78 19 151/75 (100) 98 07/09/19 16:00 98.3 84 18 136/82 (100) 100 07/09/19 12:00 98.0 80 18 132/86 (101) 100 07/09/19 09:16 95 150/84 07/09/19 09:00 Nasal Cannula 2.0 07/09/19 08:25 97 Nasal Cannula 2.0 07/09/19 08:00 96.0 95 18 150/84 (106) 97 Intake and Output 07/09/19 07/10/19 19:00 07:00 Intake Total 800 ml 340 ml Balance 800 ml 340 ml Intake Oral 800 ml 240 ml IV Total 100 ml # Voids 6 6 # Bowel Movements 1 4 Laboratory Tests 07/10/19 06:00: Sodium Level 129L, Potassium Level 4.1, Chloride Level 93L, Carbon Dioxide Level 27, Anion Gap 9, Blood Urea Nitrogen 29H, Creatinine 0.9, Estimat Glomerular Filtration Rate , Glucose Level 112H, Calcium Level 9.4 Height (Feet): 5 Height (Inches): 5.00 Weight (Pounds): 205 General Appearance: no apparent distress EENT: normal ENT inspection Neck: normal alignment, supple Cardiovascular: normal rate, regular rhythm Respiratory/Chest: rhonchi - bilaterally Abdomen: non tender, soft Edema: no edema noted Arm (L), no edema noted Arm (R), no edema noted Leg (L), no edema noted Leg (R), no edema noted Pedal (L), no edema noted Pedal (R), no edema noted Generalized Ty Schaefer MD Jul 10, 2019 07:52
[2019-07-10 08:00] VITALS: BP 149/73
[2019-07-10] MEDS: Carvedilol 6.25mg Tab ORAL SCH ×2 (09:03→20:40)
[2019-07-10] MEDS: Heparin 5000 units/ml inj SUBQ SCH ×2 (09:05→20:41)
--- NOTE | 2019-07-10 09:35 | Hematology/Onc Progress Note ---
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 Does have lung involvement. CT Enlarged uterus with central 5.3 x 5 cm mixed echogenicity masslike lesion. In retrospect, prior CT does demonstrate some heterogeneous attenuation in this area. While possibly representing a uterine fibroid, patient age and evidence of metastatic intraperitoneal malignancy raises concern for malignant neoplasm as etiology of this finding. --> pelvic us reviewed and cw above --> imaging is noted, CT Abdominal ascites. 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 Subjective Allergies: Coded Allergies: No Known Allergies (Unverified , 06/30/19) Subjective 07/10: to be discharged and to see onco as outpatient next week, labs noted, and imaging reviewed, kolby Schaefer Objective Objective Current Medications Medications (Trade) Dose Ordered Sig/Tiffani Route PRN Reason Start Time Stop Time Status Last Admin Dose Admin Albuterol/ Ipratropium (Albuterol/ Ipratropium) 3 ml Q6H PRN HHN Shortness of Breath 07/09/19 01:30 07/11/19 01:29 Carvedilol (Coreg) 6.25 mg EVERY 12 HOURS ORAL 07/09/19 09:00 08/05/19 08:59 07/10/19 09:03 Ceftriaxone Sodium 1 gm/ Dextrose 55 ml @ 110 mls/hr Q24H IVPB 07/09/19 12:00 07/12/19 11:59 07/09/19 12:00 Dextrose (Dextrose 50%) 25 ml Q30M PRN IV Hypoglycemia 07/09/19 01:30 08/04/19 01:29 Dextrose (Dextrose 50%) 50 ml Q30M PRN IV Hypoglycemia 07/09/19 01:30 08/04/19 01:29 Furosemide (Lasix) 40 mg DAILY IV 07/09/19 09:00 08/04/19 10:59 07/10/19 09:06 Heparin Sodium (Porcine) (Heparin 5000 units/ml) 5,000 units EVERY 12 HOURS SUBQ 07/09/19 09:00 08/04/19 20:59 07/10/19 09:05 Hydralazine HCl (Apresoline) 25 mg Q6H PRN ORAL For High Blood Pressure 07/09/19 01:30 08/05/19 01:29 Metronidazole 100 ml @ 100 mls/hr Q8H IVPB 07/09/19 07:00 07/14/19 22:59 07/10/19 06:53 Morphine Sulfate (Morphine Sulfate) 1 mg Q4H PRN IVP For Pain 07/09/19 01:30 07/13/19 01:29 Ondansetron HCl (Zofran) 4 mg Q6H PRN IVP Nausea & Vomiting 07/09/19 01:30 08/04/19 01:29 Sorbitol (Sorbitol) 30 ml Q8HR ORAL 07/09/19 06:00 08/07/19 07:06 07/09/19 05:59 Last 24 Hour Vital Signs Date Time Temp Pulse Resp B/P (MAP) Pulse Ox O2 Delivery O2 Flow Rate FiO2 07/10/19 09:03 85 149/73 07/10/19 08:00 98.0 85 18 149/73 (98) 97 07/10/19 07:57 98 Nasal Cannula 2.0 28 07/10/19 04:00 97.3 76 18 142/78 (99) 97 07/10/19 00:00 97.4 78 18 148/70 (96) 07/09/19 21:44 85 135/75 07/09/19 21:00 Nasal Cannula 2.0 07/09/19 20:00 97.8 78 19 151/75 (100) 98 07/09/19 16:00 98.3 84 18 136/82 (100) 100 07/09/19 12:00 98.0 80 18 132/86 (101) 100 07/09/19 09:16 95 150/84 07/09/19 09:00 Nasal Cannula 2.0 07/09/19 08:25 97 Nasal Cannula 2.0 07/09/19 08:00 96.0 95 18 150/84 (106) 97 07/09/19 04:00 98.7 86 20 136/75 (95) 98 07/09/19 00:00 96.9 86 19 132/80 (97) 98 07/09/19 00:00 86 07/08/19 21:37 100 118/85 07/08/19 21:00 Nasal Cannula 2.0 07/08/19 20:00 96 07/08/19 20:00 97.7 88 18 118/84 (95) 91 07/08/19 16:00 97.6 88 20 121/57 (78) 96 07/08/19 16:00 86 07/08/19 12:00 98.1 102 20 141/86 (104) 96 07/08/19 12:00 109 07/08/19 09:44 103 130/85 Intake and Output 07/09/19 07/10/19 19:00 07:00 Intake Total 800 ml 340 ml Balance 800 ml 340 ml Intake Oral 800 ml 240 ml IV Total 100 ml # Voids 6 6 # Bowel Movements 1 4 Labs Test 07/07/19 17:30 07/08/19 06:44 07/08/19 21:40 07/09/19 07:37 Sodium Level 122 MMOL/L (136-145) 124 MMOL/L (136-145) 128 MMOL/L (136-145) Potassium Level 4.8 MMOL/L (3.5-5.1) 4.3 MMOL/L (3.5-5.1) Chloride Level 89 MMOL/L (98-107) 92 MMOL/L (98-107) Carbon Dioxide Level 26 MMOL/L (21-32) 30 MMOL/L (21-32) Anion Gap 10 mmol/L (5-15) 6 mmol/L (5-15) Blood Urea Nitrogen 28 mg/dL (7-18) 30 mg/dL (7-18) Creatinine 0.9 MG/DL (0.55-1.30) 1.0 MG/DL (0.55-1.30) Estimat Glomerular Filtration Rate mL/min (>60) mL/min (>60) Glucose Level 103 MG/DL (74-106) 109 MG/DL (74-106) Calcium Level 9.0 MG/DL (8.5-10.1) 8.9 MG/DL (8.5-10.1) Stool Occult Blood Negative (NEGATIVE) White Blood Count 20.4 K/UL (4.8-10.8) Red Blood Count 4.92 M/UL (4.20-5.40) Hemoglobin 12.5 G/DL (12.0-16.0) Hematocrit 38.9 % (37.0-47.0) Mean Corpuscular Volume 79 FL (80-99) Mean Corpuscular Hemoglobin 25.4 PG (27.0-31.0) Mean Corpuscular Hemoglobin Concent 32.1 G/DL (32.0-36.0) Red Cell Distribution Width 11.7 % (11.6-14.8) Platelet Count 1000 K/UL (150-450) Mean Platelet Volume 4.3 FL (6.5-10.1) Neutrophils (%) (Auto) % (45.0-75.0) Lymphocytes (%) (Auto) % (20.0-45.0) Monocytes (%) (Auto) % (1.0-10.0) Eosinophils (%) (Auto) % (0.0-3.0) Basophils (%) (Auto) % (0.0-2.0) Differential Total Cells Counted 100 Neutrophils % (Manual) 81 % (45-75) Lymphocytes % (Manual) 10 % (20-45) Monocytes % (Manual) 7 % (1-10) Eosinophils % (Manual) 1 % (0-3) Basophils % (Manual) 1 % (0-2) Band Neutrophils 0 % (0-8) Nucleated Red Blood Cells /100 WBC Platelet Estimate Increased Platelet Morphology Normal Red Blood Cell Morphology Normal Total Bilirubin 0.3 MG/DL (0.2-1.0) Aspartate Amino Transf (AST/SGOT) 31 U/L (15-37) Alanine Aminotransferase (ALT/SGPT) 19 U/L (12-78) Alkaline Phosphatase 102 U/L (46-116) Total Protein 6.8 G/DL (6.4-8.2) Albumin 2.2 G/DL (3.4-5.0) Globulin 4.6 g/dL Albumin/Globulin Ratio 0.5 (1.0-2.7) Test 07/10/19 06:00 Sodium Level 129 MMOL/L (136-145) Potassium Level 4.1 MMOL/L (3.5-5.1) Chloride Level 93 MMOL/L (98-107) Carbon Dioxide Level 27 MMOL/L (21-32) Anion Gap 9 mmol/L (5-15) Blood Urea Nitrogen 29 mg/dL (7-18) Creatinine 0.9 MG/DL (0.55-1.30) Estimat Glomerular Filtration Rate mL/min (>60) Glucose Level 112 MG/DL (74-106) Calcium Level 9.4 MG/DL (8.5-10.1) Height (Feet): 5 Height (Inches): 5.00 Weight (Pounds): 205 Objective PE Vitals: noted Gen: well appearing, alert, mild distress Respiratory: chest non-tender, decreased breath sounds, wheezing Cardiovascular: regular rate, rhythm, no murmur Gastrointestinal: normal bowel sounds, no mass, no organomegaly, no bruit, non- distended, tenderness - Abdominal pain, mild, diffuse Musculoskeletal: back normal, normal range of motion, gait/station normal Psychiatric: mood/affect normal Ext: no cce Neuro: tired and confused Selvin Atkins MD Jul 10, 2019 09:35
--- NOTE | 2019-07-10 10:41 | Pulmonology Progress Note ---
Assessment/Plan Assessment/Plan IMPRESSION: 1. Right lung pneumonia. 2. Right pleural effusion. 3. Hyponatremia. 4. Hyperglycemia. 5. Hypertension. 6. COPD. 7. 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 Agree with breathing treatments and oxygen. I will follow carefully. S/p thoracentesis Cytology confirms malignancy Discussed with Dr. Hernandez Oncologic jasonal noted DC planning with home vs hospice Sina Metcalf M.D. Subjective Interval Events: None new Constitutional: Reports: no symptoms HEENT: Repors: no symptoms Respiratory: Reports: no symptoms Cardiovascular: Reports: no symptoms Gastrointestinal/Abdominal: Reports: no symptoms Genitourinary: Reports: no symptoms Allergies: Coded Allergies: No Known Allergies (Unverified , 06/30/19) Objective Last 24 Hour Vital Signs Date Time Temp Pulse Resp B/P (MAP) Pulse Ox O2 Delivery O2 Flow Rate FiO2 07/10/19 09:03 85 149/73 07/10/19 09:00 Room Air 07/10/19 08:00 98.0 85 18 149/73 (98) 97 07/10/19 07:57 98 Nasal Cannula 2.0 28 07/10/19 04:00 97.3 76 18 142/78 (99) 97 07/10/19 00:00 97.4 78 18 148/70 (96) 07/09/19 21:44 85 135/75 07/09/19 21:00 Nasal Cannula 2.0 07/09/19 20:00 97.8 78 19 151/75 (100) 98 07/09/19 16:00 98.3 84 18 136/82 (100) 100 07/09/19 12:00 98.0 80 18 132/86 (101) 100 Intake and Output 07/09/19 07/10/19 19:00 07:00 Intake Total 800 ml 340 ml Balance 800 ml 340 ml Intake Oral 800 ml 240 ml IV Total 100 ml # Voids 6 6 # Bowel Movements 1 4 General Appearance: no acute distress HEENT: normocephalic Respiratory/Chest: chest wall non-tender, decreased breath sounds Cardiovascular: normal peripheral pulses Abdomen: normal bowel sounds Laboratory Tests 07/10/19 06:00: Sodium Level 129L, Potassium Level 4.1, Chloride Level 93L, Carbon Dioxide Level 27, Anion Gap 9, Blood Urea Nitrogen 29H, Creatinine 0.9, Estimat Glomerular Filtration Rate , Glucose Level 112H, Calcium Level 9.4 Current Medications Medications (Trade) Dose Ordered Sig/Tiffani Route PRN Reason Start Time Stop Time Status Last Admin Dose Admin Albuterol/ Ipratropium (Albuterol/ Ipratropium) 3 ml Q6H PRN HHN Shortness of Breath 07/09/19 01:30 07/11/19 01:29 Carvedilol (Coreg) 6.25 mg EVERY 12 HOURS ORAL 07/09/19 09:00 08/05/19 08:59 07/10/19 09:03 Ceftriaxone Sodium 1 gm/ Dextrose 55 ml @ 110 mls/hr Q24H IVPB 07/09/19 12:00 07/12/19 11:59 07/09/19 12:00 Dextrose (Dextrose 50%) 25 ml Q30M PRN IV Hypoglycemia 07/09/19 01:30 08/04/19 01:29 Dextrose (Dextrose 50%) 50 ml Q30M PRN IV Hypoglycemia 07/09/19 01:30 08/04/19 01:29 Furosemide (Lasix) 40 mg DAILY IV 07/09/19 09:00 08/04/19 10:59 07/10/19 09:06 Heparin Sodium (Porcine) (Heparin 5000 units/ml) 5,000 units EVERY 12 HOURS SUBQ 07/09/19 09:00 08/04/19 20:59 07/10/19 09:05 Hydralazine HCl (Apresoline) 25 mg Q6H PRN ORAL For High Blood Pressure 07/09/19 01:30 08/05/19 01:29 Metronidazole 100 ml @ 100 mls/hr Q8H IVPB 07/09/19 07:00 07/14/19 22:59 07/10/19 06:53 Morphine Sulfate (Morphine Sulfate) 1 mg Q4H PRN IVP For Pain 07/09/19 01:30 07/13/19 01:29 Ondansetron HCl (Zofran) 4 mg Q6H PRN IVP Nausea & Vomiting 07/09/19 01:30 08/04/19 01:29 Sorbitol (Sorbitol) 30 ml Q8HR ORAL 07/09/19 06:00 08/07/19 07:06 07/09/19 05:59 Sina Metcalf MD Jul 10, 2019 10:41
[2019-07-10 12:00] VITALS: BP 136/60
[2019-07-10] MEDS ORDERED: Sorbitol Solution UD 30ml ORAL PRN (12:15)
[2019-07-10] MEDS: cefTRIAXone 1 GM in D5W 55 ML IVPB SCH (12:19)
[2019-07-10] MEDS: Morphine Sulfate 2mg/ml Inj(IV/IM USE ONLY) IVP PRN (15:30)
[2019-07-10 16:00] VITALS: BP 136/69
[2019-07-10 20:00] VITALS: BP 150/84
--- NOTE | 2019-07-10 21:59 | General Progress Note ---
Assessment/Plan Assessment/Plan: Assessment - Malignant pleural effusion. - Malignant ascites, carcinomatosis - COPD - nodular liver, r/o cirrhosis - N/V/D Recommendations - f/u hepatitis serologies - check stool tests - oncology Rx Subjective Allergies: Coded Allergies: No Known Allergies (Unverified , 06/30/19) Subjective Above noted thoracentesis fluid --> malignant Paracentesis fluid --> Malignant above d/w patient Objective Last 24 Hour Vital Signs Date Time Temp Pulse Resp B/P (MAP) Pulse Ox O2 Delivery O2 Flow Rate FiO2 07/10/19 20:40 102 150/84 07/10/19 20:00 97.9 98 20 150/84 (106) 94 07/10/19 16:00 98.0 07/10/19 16:00 97.9 91 18 136/69 (91) 97 07/10/19 12:00 98.0 83 18 136/60 (85) 97 07/10/19 09:03 85 149/73 07/10/19 09:00 Room Air 07/10/19 08:00 98.0 85 18 149/73 (98) 97 07/10/19 07:57 98 Nasal Cannula 2.0 28 07/10/19 04:00 97.3 76 18 142/78 (99) 97 07/10/19 00:00 97.4 78 18 148/70 (96) Intake and Output 07/09/19 07/10/19 19:00 07:00 Intake Total 800 ml 340 ml Balance 800 ml 340 ml Intake Oral 800 ml 240 ml IV Total 100 ml # Voids 6 6 # Bowel Movements 1 4 Laboratory Tests 07/10/19 06:00: Sodium Level 129L, Potassium Level 4.1, Chloride Level 93L, Carbon Dioxide Level 27, Anion Gap 9, Blood Urea Nitrogen 29H, Creatinine 0.9, Estimat Glomerular Filtration Rate , Glucose Level 112H, Calcium Level 9.4 Height (Feet): 5 Height (Inches): 5.00 Weight (Pounds): 205 Objective NCAT supple Coarse BS RR abd distended Bhavana West MD Jul 10, 2019 21:59
[2019-07-11] VITALS: BP 135/68
[2019-07-11 04:00] VITALS: BP 142/70
[2019-07-11] MEDS: Morphine Sulfate 2mg/ml Inj(IV/IM USE ONLY) IVP PRN ×2 (06:30→19:10)
--- NOTE | 2019-07-11 06:56 | Hematology/Onc Progress Note ---
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 Does have lung involvement. CT Enlarged uterus with central 5.3 x 5 cm mixed echogenicity masslike lesion. In retrospect, prior CT does demonstrate some heterogeneous attenuation in this area. While possibly representing a uterine fibroid, patient age and evidence of metastatic intraperitoneal malignancy raises concern for malignant neoplasm as etiology of this finding. --> pelvic us reviewed and cw above --> imaging is noted, CT Abdominal ascites. 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, does show mullerian/immigration officer source --> likely requires outpatient chemotherapy with a bevacizumab-based regimen # Leukocytosis may be due to malginancy --> r/o infection, is on ceftriaxone --> wbc trend 19-->20 # Thrombocytosis also related to malignancy --> unlikely myelofproliferative d/o --> trend as needed 965k-->1000k # Pleural effusion, right --> drain as needed with thora # COPD with exacerbation --> steriods prn, breathing rx --> per pulm # Malignant ascites # Acute hyponatremia # Abdominal pain DW RN and appreciate consultation. Subjective Constitutional: Denies: no symptoms, chills, fever, malaise, weakness, other HEENT: Denies: no symptoms, eye pain, blurred vision, tearing, double vision, ear pain, ear discharge, nose pain, nose congestion, throat pain, throat swelling, mouth pain, mouth swelling, other Cardiovascular: Denies: no symptoms, chest pain, edema, irregular heart rate, lightheadedness, palpitations, syncope, other Respiratory: Denies: no symptoms, cough, shortness of breath, SOB with excertion, SOB at rest, sputum, wheezing, other Genitourinary: Denies: no symptoms, burning, discharge, frequency, flank pain, hematuria, incontinence, pain, urgency, other Neurologic/Psychiatric: Denies: no symptoms, anxiety, depressed, emotional problems, headache, numbness, paresthesia, pre-existing deficit, seizure, tingling, tremors, weakness, other Endocrine: Denies: no symptoms, excessive sweating, flushing, intolerance to cold, intolerance to heat, increased hunger, increased thirst, increased urine, unexplained weight gain, unexplained weight loss, other Allergies: Coded Allergies: No Known Allergies (Unverified , 06/30/19) Subjective 07/10: to be discharged and to see onco as outpatient next week, labs noted, and imaging reviewed, kolby Schaefer 07/11: no bleeding, kolby RN, no bleeding, feeling better Objective Objective Current Medications Medications (Trade) Dose Ordered Sig/Tiffani Route PRN Reason Start Time Stop Time Status Last Admin Dose Admin Carvedilol (Coreg) 6.25 mg EVERY 12 HOURS ORAL 07/09/19 09:00 08/05/19 08:59 07/10/19 20:40 Ceftriaxone Sodium 1 gm/ Dextrose 55 ml @ 110 mls/hr Q24H IVPB 07/09/19 12:00 07/12/19 11:59 07/10/19 12:19 Dextrose (Dextrose 50%) 25 ml Q30M PRN IV Hypoglycemia 07/09/19 01:30 08/04/19 01:29 Dextrose (Dextrose 50%) 50 ml Q30M PRN IV Hypoglycemia 07/09/19 01:30 08/04/19 01:29 Furosemide (Lasix) 40 mg DAILY IV 07/09/19 09:00 08/04/19 10:59 07/10/19 09:06 Heparin Sodium (Porcine) (Heparin 5000 units/ml) 5,000 units EVERY 12 HOURS SUBQ 07/09/19 09:00 08/04/19 20:59 07/10/19 20:41 Hydralazine HCl (Apresoline) 25 mg Q6H PRN ORAL For High Blood Pressure 07/09/19 01:30 08/05/19 01:29 Metronidazole 100 ml @ 100 mls/hr Q8H IVPB 07/09/19 07:00 07/14/19 22:59 07/11/19 06:00 Morphine Sulfate (Morphine Sulfate) 1 mg Q4H PRN IVP For Pain 07/09/19 01:30 07/13/19 01:29 07/11/19 06:30 Ondansetron HCl (Zofran) 4 mg Q6H PRN IVP Nausea & Vomiting 07/09/19 01:30 08/04/19 01:29 Sorbitol (Sorbitol) 30 ml Q8H PRN ORAL constipation 07/10/19 12:15 08/09/19 12:14 Last 24 Hour Vital Signs Date Time Temp Pulse Resp B/P (MAP) Pulse Ox O2 Delivery O2 Flow Rate FiO2 07/11/19 04:00 97.7 87 16 142/70 (94) 97 07/11/19 00:00 97.3 69 18 135/68 (90) 95 07/10/19 21:00 Room Air 07/10/19 20:40 102 150/84 07/10/19 20:00 97.9 98 20 150/84 (106) 94 07/10/19 16:00 98.0 07/10/19 16:00 97.9 91 18 136/69 (91) 97 07/10/19 12:00 98.0 83 18 136/60 (85) 97 07/10/19 09:03 85 149/73 07/10/19 09:00 Room Air 07/10/19 08:00 98.0 85 18 149/73 (98) 97 07/10/19 07:57 98 Nasal Cannula 2.0 28 07/10/19 04:00 97.3 76 18 142/78 (99) 97 07/10/19 00:00 97.4 78 18 148/70 (96) 07/09/19 21:44 85 135/75 07/09/19 21:00 Nasal Cannula 2.0 07/09/19 20:00 97.8 78 19 151/75 (100) 98 07/09/19 16:00 98.3 84 18 136/82 (100) 100 07/09/19 12:00 98.0 80 18 132/86 (101) 100 07/09/19 09:16 95 150/84 07/09/19 09:00 Nasal Cannula 2.0 07/09/19 08:25 97 Nasal Cannula 2.0 07/09/19 08:00 96.0 95 18 150/84 (106) 97 Intake and Output 07/10/19 07/11/19 18:59 06:59 Intake Total 155 ml 400 ml Balance 155 ml 400 ml Intake Oral 300 ml IV Total 155 ml 100 ml # Voids 6 5 # Bowel Movements 3 Labs Test 07/08/19 21:40 07/09/19 07:37 07/10/19 06:00 Stool Occult Blood Negative (NEGATIVE) White Blood Count 20.4 K/UL (4.8-10.8) Red Blood Count 4.92 M/UL (4.20-5.40) Hemoglobin 12.5 G/DL (12.0-16.0) Hematocrit 38.9 % (37.0-47.0) Mean Corpuscular Volume 79 FL (80-99) Mean Corpuscular Hemoglobin 25.4 PG (27.0-31.0) Mean Corpuscular Hemoglobin Concent 32.1 G/DL (32.0-36.0) Red Cell Distribution Width 11.7 % (11.6-14.8) Platelet Count 1000 K/UL (150-450) Mean Platelet Volume 4.3 FL (6.5-10.1) Neutrophils (%) (Auto) % (45.0-75.0) Lymphocytes (%) (Auto) % (20.0-45.0) Monocytes (%) (Auto) % (1.0-10.0) Eosinophils (%) (Auto) % (0.0-3.0) Basophils (%) (Auto) % (0.0-2.0) Differential Total Cells Counted 100 Neutrophils % (Manual) 81 % (45-75) Lymphocytes % (Manual) 10 % (20-45) Monocytes % (Manual) 7 % (1-10) Eosinophils % (Manual) 1 % (0-3) Basophils % (Manual) 1 % (0-2) Band Neutrophils 0 % (0-8) Nucleated Red Blood Cells /100 WBC Platelet Estimate Increased Platelet Morphology Normal Red Blood Cell Morphology Normal Sodium Level 128 MMOL/L (136-145) 129 MMOL/L (136-145) Potassium Level 4.3 MMOL/L (3.5-5.1) 4.1 MMOL/L (3.5-5.1) Chloride Level 92 MMOL/L (98-107) 93 MMOL/L (98-107) Carbon Dioxide Level 30 MMOL/L (21-32) 27 MMOL/L (21-32) Anion Gap 6 mmol/L (5-15) 9 mmol/L (5-15) Blood Urea Nitrogen 30 mg/dL (7-18) 29 mg/dL (7-18) Creatinine 1.0 MG/DL (0.55-1.30) 0.9 MG/DL (0.55-1.30) Estimat Glomerular Filtration Rate mL/min (>60) mL/min (>60) Glucose Level 109 MG/DL (74-106) 112 MG/DL (74-106) Calcium Level 8.9 MG/DL (8.5-10.1) 9.4 MG/DL (8.5-10.1) Total Bilirubin 0.3 MG/DL (0.2-1.0) Aspartate Amino Transf (AST/SGOT) 31 U/L (15-37) Alanine Aminotransferase (ALT/SGPT) 19 U/L (12-78) Alkaline Phosphatase 102 U/L (46-116) Total Protein 6.8 G/DL (6.4-8.2) Albumin 2.2 G/DL (3.4-5.0) Globulin 4.6 g/dL Albumin/Globulin Ratio 0.5 (1.0-2.7) Height (Feet): 5 Height (Inches): 5.00 Weight (Pounds): 205 Objective PE Vitals: noted Gen: well appearing, alert, mild distress Respiratory: chest non-tender, decreased breath sounds, wheezing Cardiovascular: regular rate, rhythm, no murmur Gastrointestinal: normal bowel sounds, no mass, no organomegaly, no bruit, non- distended, tenderness - Abdominal pain, mild, diffuse Musculoskeletal: back normal, normal range of motion, gait/station normal Psychiatric: mood/affect normal Ext: no cce Neuro: tired and confused Selvin Atkins MD Jul 11, 2019 06:56
[2019-07-11 09:00] VITALS: BP 143/69
[2019-07-11] MEDS: Heparin 5000 units/ml inj SUBQ SCH ×2 (09:00→20:54)
[2019-07-11] MEDS: Carvedilol 6.25mg Tab ORAL SCH ×2 (09:02→20:53)
--- NOTE | 2019-07-11 09:04 | Pulmonology Progress Note ---
Assessment/Plan Assessment/Plan IMPRESSION: 1. Right lung pneumonia. 2. Right pleural effusion. 3. Hyponatremia. 4. Hyperglycemia. 5. Hypertension. 6. COPD. 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 Agree with breathing treatments and oxygen. I will follow carefully. S/p thoracentesis Cytology confirms malignancy Discussed with Dr. Hernandez Oncologic jasonal noted DC planning with home Saturating well on RA Sina Metcalf M.D. Subjective Interval Events: None new; saturating well on RA Constitutional: Reports: no symptoms HEENT: Repors: no symptoms Respiratory: Reports: no symptoms Cardiovascular: Reports: no symptoms Gastrointestinal/Abdominal: Reports: no symptoms Genitourinary: Reports: no symptoms Allergies: Coded Allergies: No Known Allergies (Unverified , 06/30/19) Objective Last 24 Hour Vital Signs Date Time Temp Pulse Resp B/P (MAP) Pulse Ox O2 Delivery O2 Flow Rate FiO2 07/11/19 04:00 97.7 87 16 142/70 (94) 97 07/11/19 00:00 97.3 69 18 135/68 (90) 95 07/10/19 21:00 Room Air 07/10/19 20:40 102 150/84 07/10/19 20:00 97.9 98 20 150/84 (106) 94 07/10/19 16:00 98.0 07/10/19 16:00 97.9 91 18 136/69 (91) 97 07/10/19 12:00 98.0 83 18 136/60 (85) 97 Intake and Output 07/10/19 07/11/19 19:00 07:00 Intake Total 155 ml 400 ml Balance 155 ml 400 ml Intake Oral 300 ml IV Total 155 ml 100 ml # Voids 6 5 # Bowel Movements 3 General Appearance: no acute distress HEENT: normocephalic Respiratory/Chest: chest wall non-tender, lungs clear Cardiovascular: normal peripheral pulses, normal rate Abdomen: normal bowel sounds, soft, non tender Extremities: no cyanosis Laboratory Tests 07/11/19 05:45: Sodium Level [Pending], Potassium Level [Pending], Chloride Level [Pending], Carbon Dioxide Level [Pending], Blood Urea Nitrogen [Pending], Creatinine [ Pending], Estimat Glomerular Filtration Rate [Pending], Glucose Level [Pending] , Calcium Level [Pending] Current Medications Medications (Trade) Dose Ordered Sig/Tiffani Route PRN Reason Start Time Stop Time Status Last Admin Dose Admin Carvedilol (Coreg) 6.25 mg EVERY 12 HOURS ORAL 07/09/19 09:00 08/05/19 08:59 07/10/19 20:40 Ceftriaxone Sodium 1 gm/ Dextrose 55 ml @ 110 mls/hr Q24H IVPB 07/09/19 12:00 07/12/19 11:59 07/10/19 12:19 Dextrose (Dextrose 50%) 25 ml Q30M PRN IV Hypoglycemia 07/09/19 01:30 08/04/19 01:29 Dextrose (Dextrose 50%) 50 ml Q30M PRN IV Hypoglycemia 07/09/19 01:30 08/04/19 01:29 Furosemide (Lasix) 40 mg DAILY IV 07/09/19 09:00 08/04/19 10:59 07/10/19 09:06 Heparin Sodium (Porcine) (Heparin 5000 units/ml) 5,000 units EVERY 12 HOURS SUBQ 07/09/19 09:00 08/04/19 20:59 07/10/19 20:41 Hydralazine HCl (Apresoline) 25 mg Q6H PRN ORAL For High Blood Pressure 07/09/19 01:30 08/05/19 01:29 Metronidazole 100 ml @ 100 mls/hr Q8H IVPB 07/09/19 07:00 07/14/19 22:59 07/11/19 06:00 Morphine Sulfate (Morphine Sulfate) 1 mg Q4H PRN IVP For Pain 07/09/19 01:30 07/13/19 01:29 07/11/19 06:30 Ondansetron HCl (Zofran) 4 mg Q6H PRN IVP Nausea & Vomiting 07/09/19 01:30 08/04/19 01:29 Sorbitol (Sorbitol) 30 ml Q8H PRN ORAL constipation 07/10/19 12:15 08/09/19 12:14 Sina Metcalf MD Jul 11, 2019 09:03
[2019-07-11 09:12] LABS: ANION GAP 3 mmol/L (5-15); BLOOD UREA NITROGEN 23 mg/dL (7-18); CALCIUM 8.8 MG/DL (8.5-10.1); CARBON DIOXIDE 34 MMOL/L (21-32); CHLORIDE 94 MMOL/L (98-107); CREATININE 0.9 MG/DL (0.55-1.30); POTASSIUM 4.5 MMOL/L (3.5-5.1); SODIUM 131 MMOL/L (136-145)
--- NOTE | 2019-07-11 09:19 | Nephrology Progress Note ---
Assessment/Plan Assessment/Plan: A/P 1. 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 - lasix, Na up to 129 - AM labs pending 2. Shortness of breath secondary to large right-sided pleural effusion with compressive atelectasis, most likely malignant in nature. - s/p 600 ml thoracentesis and 3.4 L paracentesis - resolved. Off 02 and oxygenating well 3. Carcinomatosis and malignant ascites. 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 -COMMERCIAL INSURANCE UNDERWRITER US uterine and ovarian mass, elevated CA 125 4. Leukocytosis with unclear etiology. Per ID - emperic Abx initiated. Likely from malignancy 5. GI prophylaxis with famotidine. 6. DVT prophylaxis with heparin subcutaneous. Spoke with patient and daughter. Both want to go home with HH and transportation. They are declining rehab/SNF Subjective Date patient seen: Jul 11, 2019 Time patient seen: 09:13 ROS Limited/Unobtainable: No Allergies: Coded Allergies: No Known Allergies (Unverified , 06/30/19) Subjective Patient resting. Off oxygen. Objective Last 24 Hour Vital Signs Date Time Temp Pulse Resp B/P (MAP) Pulse Ox O2 Delivery O2 Flow Rate FiO2 07/11/19 09:02 84 143/69 07/11/19 04:00 97.7 87 16 142/70 (94) 97 07/11/19 00:00 97.3 69 18 135/68 (90) 95 07/10/19 21:00 Room Air 07/10/19 20:40 102 150/84 07/10/19 20:00 97.9 98 20 150/84 (106) 94 07/10/19 16:00 98.0 07/10/19 16:00 97.9 91 18 136/69 (91) 97 07/10/19 12:00 98.0 83 18 136/60 (85) 97 Intake and Output 07/10/19 07/11/19 19:00 07:00 Intake Total 155 ml 400 ml Balance 155 ml 400 ml Intake Oral 300 ml IV Total 155 ml 100 ml # Voids 6 5 # Bowel Movements 3 Laboratory Tests 07/11/19 05:45: Sodium Level [Pending], Potassium Level [Pending], Chloride Level [Pending], Carbon Dioxide Level [Pending], Blood Urea Nitrogen [Pending], Creatinine [ Pending], Estimat Glomerular Filtration Rate [Pending], Glucose Level [Pending] , Calcium Level [Pending] Height (Feet): 5 Height (Inches): 5.00 Weight (Pounds): 205 General Appearance: no apparent distress, alert EENT: normal ENT inspection Neck: normal alignment, supple Cardiovascular: normal rate, regular rhythm Respiratory/Chest: lungs clear, normal breath sounds Abdomen: non tender, soft Edema: no edema noted Arm (L), no edema noted Arm (R), no edema noted Leg (L), no edema noted Leg (R), no edema noted Pedal (L), no edema noted Pedal (R), no edema noted Generalized Ty Schaefer MD Jul 11, 2019 09:19
[2019-07-11] MEDS: cefTRIAXone 1 GM in D5W 55 ML IVPB SCH (11:24)
[2019-07-11 12:00] VITALS: BP 131/75
--- NOTE | 2019-07-11 13:17 | Infectious Diseases Prog Note ---
Assessment/Plan Assessment/Plan Assessment: Sepsis vs SIRS Afebrile Leukocytosis- suspect this is malignancy related-, possible superinfected Abd pain, vomiting, diarrhea- ?peritoneal carcinomatosis -CT c/abd/p: Abdominal ascites. Suspect infiltration of the omentum by soft tissue, worrisome for peritoneal carcinomatosis. Equivocal hepatic surface nodularity, could indicate early cirrhotic change if real.Ultrasound may be useful for further evaluation. Bile is dilated fluid-filled proximal small bowel loops, nondilated distal small bowel. This could indicate small bowel obstruction. Large right pleural effusion. Resultant compressive atelectasis of portion of the right lower lobe. Left basilar scarring or atelectasis. Enlarged right thyroid lobe. Consider sonography for further evaluation. Cholelithiasis. 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 In retrospect, prior CT does demonstrate some heterogeneous attenuation in this area. While possibly representing a uterine fibroid, patient age and evidence of metastatic intraperitoneal malignancy raises concern for malignant neoplasm as etiology of this finding. Bilateral adnexal structures which resemble ovaries but are unusually large for a postmenopausal female. That on the right demonstrates an irregular 3.9 cm cystic structure. These could represent exophytic uterine fibroids or just represent unusual enlarged ovaries, but the possibility of bilateral ovarian neoplasm should definitely be considered, particularly in view of the CT findings. Trace free intraperitoneal fluid Large R pleural effusion; exudative- ?malignant -07/05 CXR: Resolved right pleural effusion, status post thoracentesis. No radiographically evident complication -07/05 SP R thoracentesis: removal of 600 milliliters of fluid --LDH 299 (serum 222), protein 4.9 (serum 7.7), pH 7.5, glucose 59; cx NTD Ascites -07/06 sp paracentesis: removal of 3.35 fluid -no fluid analsysis sent; cx NTD HTN COPD Plan: -cont empiric Ceftriaxone and Flagyl #/ -07/05 SP Levaquin x1 -f/u cx -Monitor CBC/CMP, temperatures -aspiration precautions -heme/onc f/u Thank you for conulting [facility]. Will continue to follow along with you. Discussed with RN. Subjective Allergies: Coded Allergies: No Known Allergies (Unverified , 06/30/19) Subjective afebrile wbc increased Objective Vital Signs Last 24 Hour Vital Signs Date Time Temp Pulse Resp B/P (MAP) Pulse Ox O2 Delivery O2 Flow Rate FiO2 07/11/19 12:00 98.6 81 18 131/75 (93) 98 07/11/19 09:02 84 143/69 07/11/19 09:00 Room Air 07/11/19 09:00 98.0 84 18 143/69 (93) 98 07/11/19 04:00 97.7 87 16 142/70 (94) 97 07/11/19 00:00 97.3 69 18 135/68 (90) 95 07/10/19 21:00 Room Air 07/10/19 20:40 102 150/84 07/10/19 20:00 97.9 98 20 150/84 (106) 94 07/10/19 16:00 98.0 07/10/19 16:00 97.9 91 18 136/69 (91) 97 Height (Feet): 5 Height (Inches): 5.00 Weight (Pounds): 205 Objective General Appearance: well appearing, alert, mild distress Head: normocephalic, atraumatic Eyes: bilateral eye PERRL, bilateral eye EOMI ENT: hearing grossly normal, normal pharynx Neck: full range of motion, supple, no meningismus Respiratory: chest non-tender, decreased breath sounds, accessory muscle use, wheezing Cardiovascular #1: regular rate, rhythm, no murmur Gastrointestinal: normal bowel sounds, no mass, no organomegaly, no bruit, non- distended, tenderness - Abdominal pain, mild, diffuse Musculoskeletal: back normal, normal range of motion, gait/station normal Psychiatric: mood/affect normal Laboratory Tests Test 07/11/19 05:45 Sodium Level 131 MMOL/L (136-145) L Potassium Level 4.5 MMOL/L (3.5-5.1) Chloride Level 94 MMOL/L (98-107) L Carbon Dioxide Level 34 MMOL/L (21-32) H Anion Gap 3 mmol/L (5-15) L Blood Urea Nitrogen 23 mg/dL (7-18) H Creatinine 0.9 MG/DL (0.55-1.30) Estimat Glomerular Filtration Rate mL/min (>60) Glucose Level 85 MG/DL (74-106) Calcium Level 8.8 MG/DL (8.5-10.1) Current Medications Medications (Trade) Dose Ordered Sig/Tiffani Route PRN Reason Start Time Stop Time Status Last Admin Dose Admin Carvedilol (Coreg) 6.25 mg EVERY 12 HOURS ORAL 07/09/19 09:00 08/05/19 08:59 07/11/19 09:02 Ceftriaxone Sodium 1 gm/ Dextrose 55 ml @ 110 mls/hr Q24H IVPB 07/09/19 12:00 07/12/19 11:59 07/11/19 11:24 Dextrose (Dextrose 50%) 25 ml Q30M PRN IV Hypoglycemia 07/09/19 01:30 08/04/19 01:29 Dextrose (Dextrose 50%) 50 ml Q30M PRN IV Hypoglycemia 07/09/19 01:30 08/04/19 01:29 Furosemide (Lasix) 40 mg DAILY IV 07/09/19 09:00 08/04/19 10:59 07/11/19 09:26 Heparin Sodium (Porcine) (Heparin 5000 units/ml) 5,000 units EVERY 12 HOURS SUBQ 07/09/19 09:00 08/04/19 20:59 07/11/19 09:00 Hydralazine HCl (Apresoline) 25 mg Q6H PRN ORAL For High Blood Pressure 07/09/19 01:30 08/05/19 01:29 Metronidazole 100 ml @ 100 mls/hr Q8H IVPB 07/09/19 07:00 07/14/19 22:59 07/11/19 06:00 Morphine Sulfate (Morphine Sulfate) 1 mg Q4H PRN IVP For Pain 07/09/19 01:30 07/13/19 01:29 07/11/19 06:30 Ondansetron HCl (Zofran) 4 mg Q6H PRN IVP Nausea & Vomiting 07/09/19 01:30 08/04/19 01:29 Sorbitol (Sorbitol) 30 ml Q8H PRN ORAL constipation 07/10/19 12:15 08/09/19 12:14 Fartun Milton M.D. Jul 11, 2019 13:17
[2019-07-11 16:00] VITALS: BP 137/72
[2019-07-11 20:00] VITALS: BP 145/83
[2019-07-12] VITALS: BP 127/78
--- NOTE | 2019-07-12 01:55 | General Progress Note ---
Assessment/Plan Assessment/Plan: Assessment - Malignant pleural effusion. - Malignant ascites, carcinomatosis - COPD - nodular liver, r/o cirrhosis - N/V/D Recommendations - f/u hepatitis serologies - check stool tests - oncology Rx Subjective Allergies: Coded Allergies: No Known Allergies (Unverified , 06/30/19) Subjective Above noted thoracentesis fluid --> malignant Paracentesis fluid --> Malignant above d/w patient Objective Last 24 Hour Vital Signs Date Time Temp Pulse Resp B/P (MAP) Pulse Ox O2 Delivery O2 Flow Rate FiO2 07/12/19 00:00 97.6 82 18 127/78 (94) 95 07/11/19 22:23 96 Room Air 21 07/11/19 21:00 Room Air 07/11/19 20:53 87 145/83 07/11/19 20:00 98.4 87 17 145/83 (103) 98 07/11/19 16:00 97.7 81 18 137/72 (93) 98 07/11/19 12:00 98.6 81 18 131/75 (93) 98 07/11/19 09:02 84 143/69 07/11/19 09:00 Room Air 07/11/19 09:00 98.0 84 18 143/69 (93) 98 07/11/19 04:00 97.7 87 16 142/70 (94) 97 Intake and Output 07/11/19 07/12/19 19:00 07:00 Intake Total 360 ml Balance 360 ml Intake Oral 360 ml # Voids 5 # Bowel Movements 1 Laboratory Tests 07/11/19 05:45: Sodium Level 131L, Potassium Level 4.5, Chloride Level 94L, Carbon Dioxide Level 34H, Anion Gap 3L, Blood Urea Nitrogen 23H, Creatinine 0.9, Estimat Glomerular Filtration Rate , Glucose Level 85, Calcium Level 8.8 Height (Feet): 5 Height (Inches): 5.00 Weight (Pounds): 205 Objective NCAT supple Coarse BS RR abd distended Bhavana West MD Jul 12, 2019 01:55
--- NOTE | 2019-07-12 02:20 | General Progress Note ---
Assessment/Plan Assessment/Plan: Assessment - Malignant pleural effusion. - Malignant ascites, carcinomatosis - COPD - nodular liver, r/o cirrhosis - N/V/D Recommendations - f/u hepatitis serologies - check stool tests - oncology Rx Subjective Allergies: Coded Allergies: No Known Allergies (Unverified , 06/30/19) Subjective Above noted Weak working with PT some abdominal pain (delayed entry note - patient seen 07/11/19) Objective Last 24 Hour Vital Signs Date Time Temp Pulse Resp B/P (MAP) Pulse Ox O2 Delivery O2 Flow Rate FiO2 07/12/19 00:00 97.6 82 18 127/78 (94) 95 07/11/19 22:23 96 Room Air 21 07/11/19 21:00 Room Air 07/11/19 20:53 87 145/83 07/11/19 20:00 98.4 87 17 145/83 (103) 98 07/11/19 16:00 97.7 81 18 137/72 (93) 98 07/11/19 12:00 98.6 81 18 131/75 (93) 98 07/11/19 09:02 84 143/69 07/11/19 09:00 Room Air 07/11/19 09:00 98.0 84 18 143/69 (93) 98 07/11/19 04:00 97.7 87 16 142/70 (94) 97 Intake and Output 07/11/19 07/12/19 19:00 07:00 Intake Total 360 ml Balance 360 ml Intake Oral 360 ml # Voids 5 # Bowel Movements 1 Laboratory Tests 07/11/19 05:45: Sodium Level 131L, Potassium Level 4.5, Chloride Level 94L, Carbon Dioxide Level 34H, Anion Gap 3L, Blood Urea Nitrogen 23H, Creatinine 0.9, Estimat Glomerular Filtration Rate , Glucose Level 85, Calcium Level 8.8 Height (Feet): 5 Height (Inches): 5.00 Weight (Pounds): 205 Objective NCAT supple Coarse BS RR abd distended Bhavana West MD Jul 12, 2019 02:20
[2019-07-12 04:00] VITALS: BP 143/67
--- NOTE | 2019-07-12 06:49 | Hematology/Onc Progress Note ---
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 Does have lung involvement. CT Enlarged uterus with central 5.3 x 5 cm mixed echogenicity masslike lesion. In retrospect, prior CT does demonstrate some heterogeneous attenuation in this area. While possibly representing a uterine fibroid, patient age and evidence of metastatic intraperitoneal malignancy raises concern for malignant neoplasm as etiology of this finding. --> pelvic us reviewed and cw above --> imaging is noted, CT Abdominal ascites. 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 Subjective Constitutional: Denies: no symptoms, chills, fever, malaise, weakness, other HEENT: Denies: no symptoms, eye pain, blurred vision, tearing, double vision, ear pain, ear discharge, nose pain, nose congestion, throat pain, throat swelling, mouth pain, mouth swelling, other Cardiovascular: Denies: no symptoms, chest pain, edema, irregular heart rate, lightheadedness, palpitations, syncope, other Genitourinary: Denies: no symptoms, burning, discharge, frequency, flank pain, hematuria, incontinence, pain, urgency, other Neurologic/Psychiatric: Denies: no symptoms, anxiety, depressed, emotional problems, headache, numbness, paresthesia, pre-existing deficit, seizure, tingling, tremors, weakness, other Endocrine: Denies: no symptoms, excessive sweating, flushing, intolerance to cold, intolerance to heat, increased hunger, increased thirst, increased urine, unexplained weight gain, unexplained weight loss, other Allergies: Coded Allergies: No Known Allergies (Unverified , 06/30/19) Subjective 07/10: to be discharged and to see onco as outpatient next week, labs noted, and imaging reviewed, kolby Schaefer 07/11: no bleeding, kolby RN, no bleeding, feeling better 07/12: no major changes, no bleeding, labs reviewed Objective Objective Current Medications Medications (Trade) Dose Ordered Sig/Tiffani Route PRN Reason Start Time Stop Time Status Last Admin Dose Admin Carvedilol (Coreg) 6.25 mg EVERY 12 HOURS ORAL 07/09/19 09:00 08/05/19 08:59 07/11/19 20:53 Ceftriaxone Sodium 1 gm/ Dextrose 55 ml @ 110 mls/hr Q24H IVPB 07/09/19 12:00 07/12/19 11:59 07/11/19 11:24 Dextrose (Dextrose 50%) 25 ml Q30M PRN IV Hypoglycemia 07/09/19 01:30 08/04/19 01:29 Dextrose (Dextrose 50%) 50 ml Q30M PRN IV Hypoglycemia 07/09/19 01:30 08/04/19 01:29 Furosemide (Lasix) 40 mg DAILY IV 07/09/19 09:00 08/04/19 10:59 07/11/19 09:26 Heparin Sodium (Porcine) (Heparin 5000 units/ml) 5,000 units EVERY 12 HOURS SUBQ 07/09/19 09:00 08/04/19 20:59 07/11/19 20:54 Hydralazine HCl (Apresoline) 25 mg Q6H PRN ORAL For High Blood Pressure 07/09/19 01:30 08/05/19 01:29 Metronidazole 100 ml @ 100 mls/hr Q8H IVPB 07/09/19 07:00 07/14/19 22:59 07/12/19 06:45 Morphine Sulfate (Morphine Sulfate) 1 mg Q4H PRN IVP For Pain 07/09/19 01:30 07/13/19 01:29 07/11/19 19:10 Ondansetron HCl (Zofran) 4 mg Q6H PRN IVP Nausea & Vomiting 07/09/19 01:30 08/04/19 01:29 Sorbitol (Sorbitol) 30 ml Q8H PRN ORAL constipation 07/10/19 12:15 08/09/19 12:14 Last 24 Hour Vital Signs Date Time Temp Pulse Resp B/P (MAP) Pulse Ox O2 Delivery O2 Flow Rate FiO2 07/12/19 04:00 98.2 78 20 143/67 (92) 95 07/12/19 00:00 97.6 82 18 127/78 (94) 95 07/11/19 22:23 96 Room Air 21 07/11/19 21:00 Room Air 07/11/19 20:53 87 145/83 07/11/19 20:00 98.4 87 17 145/83 (103) 98 07/11/19 16:00 97.7 81 18 137/72 (93) 98 07/11/19 12:00 98.6 81 18 131/75 (93) 98 07/11/19 09:02 84 143/69 07/11/19 09:00 Room Air 07/11/19 09:00 98.0 84 18 143/69 (93) 98 07/11/19 04:00 97.7 87 16 142/70 (94) 97 07/11/19 00:00 97.3 69 18 135/68 (90) 95 07/10/19 21:00 Room Air 07/10/19 20:40 102 150/84 07/10/19 20:00 97.9 98 20 150/84 (106) 94 07/10/19 16:00 98.0 07/10/19 16:00 97.9 91 18 136/69 (91) 97 07/10/19 12:00 98.0 83 18 136/60 (85) 97 07/10/19 09:03 85 149/73 07/10/19 09:00 Room Air 07/10/19 08:00 98.0 85 18 149/73 (98) 97 07/10/19 07:57 98 Nasal Cannula 2.0 28 Intake and Output 07/11/19 07/12/19 18:59 06:59 Intake Total 360 ml Balance 360 ml Intake Oral 360 ml # Voids 5 1 # Bowel Movements 1 Labs Test 07/09/19 07:37 07/10/19 06:00 07/11/19 05:45 White Blood Count 20.4 K/UL (4.8-10.8) Red Blood Count 4.92 M/UL (4.20-5.40) Hemoglobin 12.5 G/DL (12.0-16.0) Hematocrit 38.9 % (37.0-47.0) Mean Corpuscular Volume 79 FL (80-99) Mean Corpuscular Hemoglobin 25.4 PG (27.0-31.0) Mean Corpuscular Hemoglobin Concent 32.1 G/DL (32.0-36.0) Red Cell Distribution Width 11.7 % (11.6-14.8) Platelet Count 1000 K/UL (150-450) Mean Platelet Volume 4.3 FL (6.5-10.1) Neutrophils (%) (Auto) % (45.0-75.0) Lymphocytes (%) (Auto) % (20.0-45.0) Monocytes (%) (Auto) % (1.0-10.0) Eosinophils (%) (Auto) % (0.0-3.0) Basophils (%) (Auto) % (0.0-2.0) Differential Total Cells Counted 100 Neutrophils % (Manual) 81 % (45-75) Lymphocytes % (Manual) 10 % (20-45) Monocytes % (Manual) 7 % (1-10) Eosinophils % (Manual) 1 % (0-3) Basophils % (Manual) 1 % (0-2) Band Neutrophils 0 % (0-8) Nucleated Red Blood Cells /100 WBC Platelet Estimate Increased Platelet Morphology Normal Red Blood Cell Morphology Normal Sodium Level 128 MMOL/L (136-145) 129 MMOL/L (136-145) 131 MMOL/L (136-145) Potassium Level 4.3 MMOL/L (3.5-5.1) 4.1 MMOL/L (3.5-5.1) 4.5 MMOL/L (3.5-5.1) Chloride Level 92 MMOL/L (98-107) 93 MMOL/L (98-107) 94 MMOL/L (98-107) Carbon Dioxide Level 30 MMOL/L (21-32) 27 MMOL/L (21-32) 34 MMOL/L (21-32) Anion Gap 6 mmol/L (5-15) 9 mmol/L (5-15) 3 mmol/L (5-15) Blood Urea Nitrogen 30 mg/dL (7-18) 29 mg/dL (7-18) 23 mg/dL (7-18) Creatinine 1.0 MG/DL (0.55-1.30) 0.9 MG/DL (0.55-1.30) 0.9 MG/DL (0.55-1.30) Estimat Glomerular Filtration Rate mL/min (>60) mL/min (>60) mL/min (>60) Glucose Level 109 MG/DL (74-106) 112 MG/DL (74-106) 85 MG/DL (74-106) Calcium Level 8.9 MG/DL (8.5-10.1) 9.4 MG/DL (8.5-10.1) 8.8 MG/DL (8.5-10.1) Total Bilirubin 0.3 MG/DL (0.2-1.0) Aspartate Amino Transf (AST/SGOT) 31 U/L (15-37) Alanine Aminotransferase (ALT/SGPT) 19 U/L (12-78) Alkaline Phosphatase 102 U/L (46-116) Total Protein 6.8 G/DL (6.4-8.2) Albumin 2.2 G/DL (3.4-5.0) Globulin 4.6 g/dL Albumin/Globulin Ratio 0.5 (1.0-2.7) Height (Feet): 5 Height (Inches): 5.00 Weight (Pounds): 205 Objective PE Vitals: noted Gen: well appearing, alert, mild distress Respiratory: chest non-tender, decreased breath sounds, wheezing Cardiovascular: regular rate, rhythm, no murmur Gastrointestinal: normal bowel sounds, no mass, no organomegaly, no bruit, non- distended, tenderness - Abdominal pain, mild, diffuse Musculoskeletal: back normal, normal range of motion, gait/station normal Psychiatric: mood/affect normal Ext: no cce Neuro: tired and confused Selvin Atkins MD Jul 12, 2019 06:49
--- NOTE | 2019-07-12 07:34 | Discharge Instructions ---
Discharge Instructions Discharge Instructions Services at Discharge: home health services Diet: 2 GM sodium (low sodium) Resume Normal Activity?: No Activity: light activity Follow Up Orders Follow up Hematology Dr Li 1 week For Congestive Heart Failure Reminder Report to your physician any weight gain of 5 pounds or more in one week. Ty Schaefer MD Jul 12, 2019 07:34
[2019-07-12 07:37] LABS: HEMATOCRIT 37.6 % (37.0-47.0); HEMOGLOBIN 12.1 G/DL (12.0-16.0); MEAN CORPUSCULAR VOLUME 79 FL (80-99); PLATELET COUNT 849 K/UL (150-450); RED BLOOD COUNT 4.75 M/UL (4.20-5.40); RED CELL DISTRIBUTION WIDTH 12.3 % (11.6-14.8); WHITE BLOOD COUNT 16.1 K/UL (4.8-10.8)
[2019-07-12 07:41] LABS: ALANINE AMINOTRANSFERASE 25 U/L (12-78); ALBUMIN 2.2 G/DL (3.4-5.0); ALBUMIN/GLOBULIN RATIO 0.6 (1.0-2.7); ALKALINE PHOSPHATASE 246 U/L (46-116); ANION GAP 8 mmol/L (5-15); ASPARTATE AMINO TRANSFERASE 50 U/L (15-37); BILIRUBIN,TOTAL 0.3 MG/DL (0.2-1.0); BLOOD UREA NITROGEN 18 mg/dL (7-18); CALCIUM 8.5 MG/DL (8.5-10.1); CARBON DIOXIDE 28 MMOL/L (21-32); CHLORIDE 95 MMOL/L (98-107); CREATININE 0.8 MG/DL (0.55-1.30); POTASSIUM 3.7 MMOL/L (3.5-5.1); SODIUM 131 MMOL/L (136-145)
[2019-07-12 08:00] VITALS: BP 133/78
--- NOTE | 2019-07-12 08:07 | Nephrology Progress Note ---
Assessment/Plan Assessment/Plan: A/P 1. 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 - lasix 40 mg qd -Na up to 131 2. Shortness of breath secondary to large right-sided pleural effusion with compressive atelectasis, most likely malignant in nature. - s/p 600 ml thoracentesis and 3.4 L paracentesis - resolved. Off 02 and oxygenating well. DC today 3. Carcinomatosis and malignant ascites. 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 Leukocytosis with unclear etiology. Per ID - emperic Abx initiated. Likely from malignancy 5. GI prophylaxis with famotidine. 6. DVT prophylaxis with heparin subcutaneous. 7. HTN- Dc on Coreg 6.25 mg bid Spoke with patient and daughter. Home with HH and transportation today Subjective Date patient seen: Jul 12, 2019 Time patient seen: 08:05 ROS Limited/Unobtainable: No Allergies: Coded Allergies: No Known Allergies (Unverified , 06/30/19) Subjective Patient resting. Off oxygen. And set for DC today Objective Last 24 Hour Vital Signs Date Time Temp Pulse Resp B/P (MAP) Pulse Ox O2 Delivery O2 Flow Rate FiO2 07/12/19 04:00 98.2 78 20 143/67 (92) 95 07/12/19 00:00 97.6 82 18 127/78 (94) 95 07/11/19 22:23 96 Room Air 21 07/11/19 21:00 Room Air 07/11/19 20:53 87 145/83 07/11/19 20:00 98.4 87 17 145/83 (103) 98 07/11/19 16:00 97.7 81 18 137/72 (93) 98 07/11/19 12:00 98.6 81 18 131/75 (93) 98 07/11/19 09:02 84 143/69 07/11/19 09:00 Room Air 07/11/19 09:00 98.0 84 18 143/69 (93) 98 Intake and Output 07/11/19 07/12/19 18:59 06:59 Intake Total 360 ml Balance 360 ml Intake Oral 360 ml # Voids 5 1 # Bowel Movements 1 Laboratory Tests 07/12/19 05:20: White Blood Count 16.1H, Red Blood Count 4.75, Hemoglobin 12.1, Hematocrit 37.6 , Mean Corpuscular Volume 79L, Mean Corpuscular Hemoglobin 25.4L, Mean Corpuscular Hemoglobin Concent 32.1, Red Cell Distribution Width 12.3, Platelet Count 849H, Mean Platelet Volume 4.2L, Neutrophils (%) (Auto) , Lymphocytes (%) (Auto) , Monocytes (%) (Auto) , Eosinophils (%) (Auto) , Basophils (%) (Auto) , Neutrophils % (Manual) [Pending], Lymphocytes % (Manual) [Pending], Platelet Estimate [Pending], Platelet Morphology [Pending], Sodium Level 131L, Potassium Level 3.7, Chloride Level 95L, Carbon Dioxide Level 28, Anion Gap 8, Blood Urea Nitrogen 18, Creatinine 0.8, Estimat Glomerular Filtration Rate , Glucose Level 89, Calcium Level 8.5, Total Bilirubin 0.3, Aspartate Amino Transf (AST/SGOT) 50H, Alanine Aminotransferase (ALT/SGPT) 25, Alkaline Phosphatase 246H, Total Protein 6.1L, Albumin 2.2L, Globulin 3.9, Albumin/Globulin Ratio 0.6L Height (Feet): 5 Height (Inches): 5.00 Weight (Pounds): 205 General Appearance: no apparent distress, alert EENT: normal ENT inspection Neck: normal alignment, supple Cardiovascular: normal rate, regular rhythm Respiratory/Chest: lungs clear, normal breath sounds Abdomen: non tender, soft, distended Edema: no edema noted Arm (L), no edema noted Arm (R), no edema noted Leg (L), no edema noted Leg (R), no edema noted Pedal (L), no edema noted Pedal (R), no edema noted Generalized Ty Schaefer MD Jul 12, 2019 08:07
[2019-07-12 10:12] VITALS: BP 154/83
[2019-07-12] MEDS: Carvedilol 6.25mg Tab ORAL SCH (10:12)
--- NOTE | 2019-07-12 10:41 | Pulmonology Progress Note ---
Assessment/Plan Assessment/Plan IMPRESSION: 1. Right lung pneumonia. 2. Right pleural effusion. 3. Hyponatremia. 4. Hyperglycemia. 5. Hypertension. 6. COPD. 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 Hernandez Oncologic dylon noted DC planning with home Saturating well on RA Sina Metcalf M.D. Subjective Interval Events: None new Constitutional: Reports: no symptoms HEENT: Repors: no symptoms Respiratory: Reports: no symptoms Cardiovascular: Reports: no symptoms Gastrointestinal/Abdominal: Reports: no symptoms Allergies: Coded Allergies: No Known Allergies (Unverified , 06/30/19) Objective Last 24 Hour Vital Signs Date Time Temp Pulse Resp B/P (MAP) Pulse Ox O2 Delivery O2 Flow Rate FiO2 07/12/19 10:12 92 154/83 07/12/19 08:00 97.3 84 18 133/78 (96) 95 07/12/19 04:00 98.2 78 20 143/67 (92) 95 07/12/19 00:00 97.6 82 18 127/78 (94) 95 07/11/19 22:23 96 Room Air 21 07/11/19 21:00 Room Air 07/11/19 20:53 87 145/83 07/11/19 20:00 98.4 87 17 145/83 (103) 98 07/11/19 16:00 97.7 81 18 137/72 (93) 98 07/11/19 12:00 98.6 81 18 131/75 (93) 98 Intake and Output 07/11/19 07/12/19 18:59 06:59 Intake Total 360 ml Balance 360 ml Intake Oral 360 ml # Voids 5 1 # Bowel Movements 1 General Appearance: no acute distress HEENT: normocephalic Respiratory/Chest: chest wall non-tender, lungs clear Cardiovascular: normal peripheral pulses Abdomen: normal bowel sounds Laboratory Tests 07/12/19 05:20: White Blood Count 16.1H, Red Blood Count 4.75, Hemoglobin 12.1, Hematocrit 37.6 , Mean Corpuscular Volume 79L, Mean Corpuscular Hemoglobin 25.4L, Mean Corpuscular Hemoglobin Concent 32.1, Red Cell Distribution Width 12.3, Platelet Count 849H, Mean Platelet Volume 4.2L, Neutrophils (%) (Auto) , Lymphocytes (%) (Auto) , Monocytes (%) (Auto) , Eosinophils (%) (Auto) , Basophils (%) (Auto) , Neutrophils % (Manual) [Pending], Lymphocytes % (Manual) [Pending], Platelet Estimate [Pending], Platelet Morphology [Pending], Sodium Level 131L, Potassium Level 3.7, Chloride Level 95L, Carbon Dioxide Level 28, Anion Gap 8, Blood Urea Nitrogen 18, Creatinine 0.8, Estimat Glomerular Filtration Rate , Glucose Level 89, Calcium Level 8.5, Total Bilirubin 0.3, Aspartate Amino Transf (AST/SGOT) 50H, Alanine Aminotransferase (ALT/SGPT) 25, Alkaline Phosphatase 246H, Total Protein 6.1L, Albumin 2.2L, Globulin 3.9, Albumin/Globulin Ratio 0.6L Current Medications Medications (Trade) Dose Ordered Sig/Tiffani Route PRN Reason Start Time Stop Time Status Last Admin Dose Admin Carvedilol (Coreg) 6.25 mg EVERY 12 HOURS ORAL 07/09/19 09:00 08/05/19 08:59 07/12/19 10:12 Ceftriaxone Sodium 1 gm/ Dextrose 55 ml @ 110 mls/hr Q24H IVPB 07/09/19 12:00 07/12/19 11:59 07/11/19 11:24 Dextrose (Dextrose 50%) 25 ml Q30M PRN IV Hypoglycemia 07/09/19 01:30 08/04/19 01:29 Dextrose (Dextrose 50%) 50 ml Q30M PRN IV Hypoglycemia 07/09/19 01:30 08/04/19 01:29 Furosemide (Lasix) 40 mg DAILY IV 07/09/19 09:00 08/04/19 10:59 07/11/19 09:26 Heparin Sodium (Porcine) (Heparin 5000 units/ml) 5,000 units EVERY 12 HOURS SUBQ 07/09/19 09:00 08/04/19 20:59 07/11/19 20:54 Hydralazine HCl (Apresoline) 25 mg Q6H PRN ORAL For High Blood Pressure 07/09/19 01:30 08/05/19 01:29 Metronidazole 100 ml @ 100 mls/hr Q8H IVPB 07/09/19 07:00 07/14/19 22:59 07/12/19 06:45 Morphine Sulfate (Morphine Sulfate) 1 mg Q4H PRN IVP For Pain 07/09/19 01:30 07/13/19 01:29 07/11/19 19:10 Ondansetron HCl (Zofran) 4 mg Q6H PRN IVP Nausea & Vomiting 07/09/19 01:30 08/04/19 01:29 Sorbitol (Sorbitol) 30 ml Q8H PRN ORAL constipation 07/10/19 12:15 08/09/19 12:14 Sina Metcalf MD Jul 12, 2019 10:41
[2019-07-12] MEDS: Heparin 5000 units/ml inj SUBQ SCH (10:43)
--- NOTE | 2019-07-12 16:10 | General Progress Note ---
Assessment/Plan Assessment/Plan: Assessment - Malignant pleural effusion. - Malignant ascites, carcinomatosis - COPD - nodular liver, r/o cirrhosis - N/V/D Recommendations - f/u hepatitis serologies - check stool tests - oncology Rx Subjective Allergies: Coded Allergies: No Known Allergies (Unverified , 06/30/19) Subjective Above noted Weak some abdominal pain for discharge today Objective Last 24 Hour Vital Signs Date Time Temp Pulse Resp B/P (MAP) Pulse Ox O2 Delivery O2 Flow Rate FiO2 07/12/19 10:59 Room Air 07/12/19 10:12 92 154/83 07/12/19 08:00 97.3 84 18 133/78 (96) 95 07/12/19 04:00 98.2 78 20 143/67 (92) 95 07/12/19 00:00 97.6 82 18 127/78 (94) 95 07/11/19 22:23 96 Room Air 21 07/11/19 21:00 Room Air 07/11/19 20:53 87 145/83 07/11/19 20:00 98.4 87 17 145/83 (103) 98 Intake and Output 07/11/19 07/12/19 19:00 07:00 Intake Total 360 ml Balance 360 ml Intake Oral 360 ml # Voids 5 1 # Bowel Movements 1 Laboratory Tests 07/12/19 05:20: White Blood Count 16.1H, Red Blood Count 4.75, Hemoglobin 12.1, Hematocrit 37.6 , Mean Corpuscular Volume 79L, Mean Corpuscular Hemoglobin 25.4L, Mean Corpuscular Hemoglobin Concent 32.1, Red Cell Distribution Width 12.3, Platelet Count 849H, Mean Platelet Volume 4.2L, Neutrophils (%) (Auto) , Lymphocytes (%) (Auto) , Monocytes (%) (Auto) , Eosinophils (%) (Auto) , Basophils (%) (Auto) , Differential Total Cells Counted 100, Neutrophils % (Manual) 74, Lymphocytes % ( Manual) 14L, Monocytes % (Manual) 11H, Eosinophils % (Manual) 1, Basophils % ( Manual) 0, Band Neutrophils 0, Platelet Estimate IncreasedH, Platelet Morphology Normal, Hypochromasia 1+, Microcytosis 1+, Sodium Level 131L, Potassium Level 3.7, Chloride Level 95L, Carbon Dioxide Level 28, Anion Gap 8, Blood Urea Nitrogen 18, Creatinine 0.8, Estimat Glomerular Filtration Rate , Glucose Level 89, Calcium Level 8.5, Total Bilirubin 0.3, Aspartate Amino Transf (AST/SGOT) 50H, Alanine Aminotransferase (ALT/SGPT) 25, Alkaline Phosphatase 246H, Total Protein 6.1L, Albumin 2.2L, Globulin 3.9, Albumin/ Globulin Ratio 0.6L Height (Feet): 5 Height (Inches): 5.00 Weight (Pounds): 205 Objective NCAT supple Coarse BS RR abd distended Bhavana West MD Jul 12, 2019 16:10
--- NOTE | 2019-07-13 08:41 | Discharge Summary ---
Discharge Summary Discharge Summary _ DATE OF ADMISSION: 07/05/2019 DATE OF DISCHARGE: 07/12/2019 DISCHARGED BY: Dr. Schaefer REASON FOR ADMISSION: 74 years old female with past medical history of hypertension, COPD, presented to emergency room for evaluation due to shortness of breath and abdominal pain. Patient apparently was seen in the emergency room during hols and was discharged on oral antibiotics. She returned with worsening abdominal pain and shortness of breath. Patient presented with respiratory distress and wheezing. CT of the abdomen and pelvis with IV contrast demonstrated abdominal ascites and suspected infiltration in the omentum by soft tissue , worrisome for peritoneal carcinomatosis . Hepatic surface nodularity, possibly early cirrhotic changes . Large right pleural effusion with associated compressive atelectasis. Laboratory work-up subsequently revealed leukocytosis WBC 18.3 , stable hemoglobin and hematocrit. Thrombocytosis with platelet count 875. Sodium 123 . Stable renal parameters. Troponin negative, pro BNP 224. Urinalysis revealed pyuria, +2 leukocyte esterase, moderate bacteria. P Chest x-ray demonstrated hazy right lung opacity consistent with large pleural effusion , described on prior CT scan Patient subsequently admitted for further management. CONSULTANTS: pulmonary Dr. Metcalf ID specialist Dr. Milton GI specialist Dr. West prescriptionist/patient [facility] COURSE: Patient admitted. For hyponatremia, patient started on intravenous diuretic. Fluid restriction was implemented. Shortness of breath was likely due to right large right-sided pleural effusion with compressive atelectasis likely malignant in nature. Oxidation Operator consulted. Patient subsequently undergone ultrasound-guided thoracentesis of right pleural effusion on 07/05 yielding 600 mL of pleural fluid. Follow-up chest x-ray revealed complete resolution of right pleural effusion. No radiographically evident complications. Culture of pleural fluid was negative. Pathology of pleural fluid revealed malignant cells. Patient also undergone ultrasound-guided paracentesis on 07/06 , which yielded 3.35 L of ascitic fluid. Pathology of ascitic fluid also revealed malignant cells. Culture of ascitic fluid was negative. Oncologist followed. Abdominal pelvic transvaginal ultrasound revealed enlarged uterus with central 5.3 x 5 cm mixed echogenicity masslike lesion. Bilateral adnexal structures resembled ovaries , but were unusually large for a postmenopausal female. Irregular right sided 3.9 cm cystic structure, possibly representing exophytic uterine fibroids or just unusual enlarged ovarie However, the possibility of bilateral ovarian neoplasm should definitely be considered, particularly in view of the CT findings. 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 Ca 125 was markedly elevated-2693. CA-19-9 -57, CEA in range. Pain management was addressed. DVT and GI prophylaxis provided. Antiemetic provided as needed . Hepatitis panel was negative. PARI screen was negative. Stool for occult blood was negative. Hemoglobin and hematocrit remained stable , prior to discharge hemoglobin 12.1 , hematocrit 27.6. Platelet count was closely monitored; initially trended up and then started to trend down . Prior to discharge platelet count 849. Senior Reliability Engineer doubted myeloproliferative disorder . Thrombocytosis was likely related to malignancy. ID specialist followed. Leukocytosis suspected to be malignancy related possibly superinfected. Antibiotics provided as per ID specialist recommendation. Blood cultures were negative. Urine culture revealed mixed gram-positive organisms. Per resource recovery specialist, patient had right sided pneumonia. Supplemental oxygen provided and titrated to keep oximetry above 92%. Pulmonary toilet via HHN therapy with bronchodilator provided as needed. Prior to discharge pulse oximetry was stable on room air. Renal parameters and electrolytes were closely monitored, electrolytes corrected as needed , and nephrotoxic's were avoided. Sodium up to 131 upon discharge. Renal parameters remained stable. Hyponatremia was likely due to cirrhosis with malignant ascites. Shortness of breath initially present , was due to large right-sided pleural effusion with associated compressive atelectasis, resolved after thoracentesis. Blood pressure was managed with beta-ilan and Lasix. Blood pressure was stable. Patient clinically stabilized and was ready for discharge. home with home health services. Follow-up with oncologist as outpatient. FINAL DIAGNOSES: Sepsis versus SIRS Mullerian/CAMPUS SAFETY OFFICER origin tumor, stage IV with markedly elevated Ca 125 , likely to ovarian tumor Large right malignant pleural effusion Status post thoracentesis Malignant ascites Status post paracentesis Carcinomatosis Uterine and probably ovarian mass Cirrhosis Right lung pneumonia Acute hyponatremia Thrombocytosis COPD DISCHARGE MEDICATIONS: See Medication Reconciliation list. DISCHARGE INSTRUCTIONS: Patient was discharged home with home health services. Follow-up with oncologist Dr Alba in 1 week. I have been assigned to dictate discharge summary for this account. I was not involved in the patient's management. Julia Abraham NP Jul 13, 2019 08:41
== END 2019-07-12 13:15 | disposition home health service (06) | DRG 871 ==
LOC: EMR 07-05 00:29 → 2E 07-05 03:00 → EDBEDREQ 07-05 09:31 → 4E 07-09 02:01
PROC: 0W993ZX Drainage of Right Pleural Cavity, Percutaneous Approach, Diagnostic (ICD-10-PCS; principal; 2019-07-05)
DX: A41.9 Sepsis, unspecified organism (principal); J18.9 Pneumonia, unspecified organism; R18.0 Malignant ascites; C78.6 Secondary malignant neoplasm of retroperitoneum and peritoneum; E87.1 Hypo-osmolality and hyponatremia; C56.9 Malignant neoplasm of unspecified ovary; J44.0 Chronic obstructive pulmonary disease with (acute) lower respiratory infection; J44.1 Chronic obstructive pulmonary disease with (acute) exacerbation; J91.0 Malignant pleural effusion; J44.9 Chronic obstructive pulmonary disease, unspecified; D47.3 Essential (hemorrhagic) thrombocythemia; I10 Essential (primary) hypertension; D72.829 Elevated white blood cell count, unspecified; R73.9 Hyperglycemia, unspecified
CPT/HCPCS: 36415; 71045; 71260; 74177; 76830; 76856; 76942; 80048; 80053; 81003; 82270; 82378; 83540; 83550; 83605; 83615; 83880; 83986; 84295; 84484; 85007; 85025; 85610; 85730; 86039; 86304; 86705; 86709; 86803; 87040; 87070; 87086; 87205; 87340; 88104; 89050; 93005; 94640; 94664; 96365; 96375; 99285; J2405

== ENCOUNTER 2019-08-31 13:21 | Inpatient (IN) | payer MEDICARE, MEDICAID ==
[~2019-08-31] VITALS: Ht 167.6 cm; Wt 79.4 kg
--- NOTE | 2019-08-31 13:25 | NUR ---
ED Nurse Note: Patient walked into ED from home c/o shortness of breath, chest congestion, nausea and vomiting for 1 day, patient's daughter reports patient has been having these symptoms for the past week, but it got worse since yesterday. patient is alert awake, on a hospital gown, on a monitoring engineer.
[2019-08-31 13:45] VITALS: BP 130/117
--- NOTE | 2019-08-31 13:54 | Emergency Room Report ---
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 Right-sided effusion Denies any vomiting or diarrhea patient has had some decreased oral intake recently Feels very weak and lethargic No obvious fevers documented Patient had previously refused chemotherapy however at this time they are Trying to find a heme oncologist Allergies: Coded Allergies: No Known Allergies (Unverified , 06/30/19) Patient History Limited by: language barrier Reviewed Nursing Documentation: PMH: Agreed; PSxH: Agreed Nursing Documentation-PMH Hx Cardiac Problems: Yes Hx Hypertension: Yes Hx COPD: Yes Hx Cancer: Yes - OVARIAN Hx Gastrointestinal Problems: No Review of Systems All Other Systems: negative except mentioned in HPI Physical Exam Vital Signs Date Time Temp Pulse Resp B/P (MAP) Pulse Ox O2 Delivery O2 Flow Rate FiO2 08/31/19 13:17 112 25 175/100 (125) 93 Room Air 08/31/19 13:45 98.8 2.0 Sp02 EP Interpretation: reviewed, normal General Appearance: mild distress - Tachypneic and weak Head: normocephalic, atraumatic Eyes: bilateral eye PERRL ENT: hearing grossly normal, EOM grossly intact Neck: supple Respiratory: other - Decreased breath sounds both lower lobes somewhat tachypneic Cardiovascular #1: no edema, tachycardia Gastrointestinal: non tender, soft Genitourinary: no CVA tenderness Musculoskeletal: normal inspection Neurologic: alert, oriented x3 Psychiatric: normal inspection Skin: pallor Lymphatic: no adenopathy Procedures Critical Care Time Critical Care Time 50 minutes for multiple re-evaluations critical presentation with concern for respiratory failure, talking to interventional radiology and consultants not including any procedural time Medical Decision Making Diagnostic Impression: Primary Impression: Dyspnea Additional Impressions: Pleural effusion Ovarian cancer ER Course Given the patient's history and presentation multiple differentials and consideration including but not limited to pulmonary embolism, effusion, pneumonia, other metabolic disorder, cardiac process Patient's x-ray is concerning with a large right-sided effusion given the patient's symptomatic presentation Ultrasound-guided thoracentesis was ordered emergently and performed by radiology Contact was made with the patient's admitting physician who knows the patient from previous admission And patient admitted for further inpatient care Family displays some lack of knowledge and information regarding the patient's underlying condition. It is recommended to discuss further with inpatient specialty heme oncologist and inpatient, process development associate further However they are aware of the spread of ovarian cancer and it was reported that until recently patient had refused any further intervention such as chemotherapy Labs Test 08/31/19 14:06 08/31/19 15:21 08/31/19 18:05 09/01/19 06:10 White Blood Count 15.7 K/UL (4.8-10.8) 13.5 K/UL (4.8-10.8) Red Blood Count 5.20 M/UL (4.20-5.40) 5.15 M/UL (4.20-5.40) Hemoglobin 13.6 G/DL (12.0-16.0) 13.7 G/DL (12.0-16.0) Hematocrit 41.8 % (37.0-47.0) 41.7 % (37.0-47.0) Mean Corpuscular Volume 80 FL (80-99) 81 FL (80-99) Mean Corpuscular Hemoglobin 26.2 PG (27.0-31.0) 26.6 PG (27.0-31.0) Mean Corpuscular Hemoglobin Concent 32.6 G/DL (32.0-36.0) 32.9 G/DL (32.0-36.0) Red Cell Distribution Width 14.1 % (11.6-14.8) 14.2 % (11.6-14.8) Platelet Count 626 K/UL (150-450) 648 K/UL (150-450) Mean Platelet Volume 5.8 FL (6.5-10.1) 5.7 FL (6.5-10.1) Neutrophils (%) (Auto) 75.9 % (45.0-75.0) 67.8 % (45.0-75.0) Lymphocytes (%) (Auto) 14.1 % (20.0-45.0) 17.7 % (20.0-45.0) Monocytes (%) (Auto) 8.8 % (1.0-10.0) 12.5 % (1.0-10.0) Eosinophils (%) (Auto) 0.2 % (0.0-3.0) 0.7 % (0.0-3.0) Basophils (%) (Auto) 1.0 % (0.0-2.0) 1.4 % (0.0-2.0) Sodium Level 128 MMOL/L (136-145) 127 MMOL/L (136-145) Potassium Level 5.0 MMOL/L (3.5-5.1) 5.0 MMOL/L (3.5-5.1) Chloride Level 91 MMOL/L (98-107) 91 MMOL/L (98-107) Carbon Dioxide Level 26 MMOL/L (21-32) 27 MMOL/L (21-32) Anion Gap 11 mmol/L (5-15) 9 mmol/L (5-15) Blood Urea Nitrogen 17 mg/dL (7-18) 16 mg/dL (7-18) Creatinine 0.8 MG/DL (0.55-1.30) 0.8 MG/DL (0.55-1.30) Estimat Glomerular Filtration Rate mL/min (>60) mL/min (>60) Glucose Level 123 MG/DL (74-106) 99 MG/DL (74-106) Lactic Acid Level 1.80 mmol/L (0.4-2.0) Calcium Level 9.5 MG/DL (8.5-10.1) 9.1 MG/DL (8.5-10.1) Total Bilirubin 0.7 MG/DL (0.2-1.0) Aspartate Amino Transf (AST/SGOT) 42 U/L (15-37) Alanine Aminotransferase (ALT/SGPT) 30 U/L (12-78) Alkaline Phosphatase 111 U/L (46-116) Total Creatine Kinase 21 U/L (26-308) Creatine Kinase MB 1.2 NG/ML (0.0-3.6) Creatine Kinase MB Relative Index 5.7 Troponin I 0.000 ng/mL (0.000-0.056) Pro-B-Type Natriuretic Peptide 489 pg/mL (0-125) Total Protein 7.5 G/DL (6.4-8.2) Albumin 3.0 G/DL (3.4-5.0) Globulin 4.5 g/dL Albumin/Globulin Ratio 0.7 (1.0-2.7) Lipase 52 U/L (73-393) Prothrombin Time 11.4 SEC (9.30-11.50) Prothromb Time International Ratio 1.1 (0.9-1.1) Urine Color Anne Urine Appearance Slightly cloudy Urine pH 5 (4.5-8.0) Urine Specific [place] 1.025 (1.005-1.035) Urine Protein 2+ (NEGATIVE) Urine Glucose (UA) Negative (NEGATIVE) Urine Ketones 2+ (NEGATIVE) Urine Blood 3+ (NEGATIVE) Urine Nitrite Negative (NEGATIVE) Urine Bilirubin Negative (NEGATIVE) Urine Ictotest Negative (NEGATIVE) Urine Urobilinogen Normal MG/DL (0.0-1.0) Urine Leukocyte Esterase 1+ (NEGATIVE) Urine RBC 0-2 /HPF (0 - 2) Urine WBC 5-10 /HPF (0 - 2) Urine Squamous Epithelial Cells Moderate /LPF (NONE/OCC) Urine Amorphous Sediment Few /LPF (NONE) Urine Bacteria Few /HPF (NONE) Urine Hyaline Casts 0-2 /LPF (NONE) Urine Granular Casts /LPF (NONE) Urine Fine Granular Casts 0-2 /LPF (NONE) Urine Coarse Granular Casts 0-2 /LPF (NONE) EKG Diagnostic Results Rate: normal Rhythm: NSR ST Segments: no acute changes Rhythm Strip Diag. Results EP Interpretation: yes Rate: 88 Rhythm: NSR, no PVC's, no ectopy Chest X-Ray Diagnostic Results Chest X-Ray Diagnostic Results : Chest X-Ray Ordered: Yes # of Views/Limited/Complete: 1 View Indication: Shortness of Breath Interpretation: no pneumothorax, other - Heart size normal significant right -sided effusion Impression: Other - Large right-sided effusion Electronically Signed by: Antoinette Herring DO Last Vital Signs Date Time Temp Pulse Resp B/P (MAP) Pulse Ox O2 Delivery O2 Flow Rate FiO2 08/31/19 13:45 98.8 118 26 130/117 96 Nasal Cannula 2.0 Status: improved Disposition: ADMITTED INPATIENT Condition: Critical Antoinette Herring DO Aug 31, 2019 13:54
[2019-08-31 14:19] LABS: EOSINOPHILS % (AUTO) 0.2 % (0.0-3.0); HEMATOCRIT 41.8 % (37.0-47.0); HEMOGLOBIN 13.6 G/DL (12.0-16.0); LYMPHOCYTES % (AUTO) 14.1 % (20.0-45.0); MEAN CORPUSCULAR VOLUME 80 FL (80-99); MONOCYTES % (AUTO) 8.8 % (1.0-10.0); NEUTROPHILS % (AUTO) 75.9 % (45.0-75.0); PLATELET COUNT 626 K/UL (150-450); RED CELL DISTRIBUTION WIDTH 14.1 % (11.6-14.8); WHITE BLOOD COUNT 15.7 K/UL (4.8-10.8)
[2019-08-31 14:30] LABS: ANION GAP 11 mmol/L (5-15); BLOOD UREA NITROGEN 17 mg/dL (7-18); CALCIUM 9.5 MG/DL (8.5-10.1); CARBON DIOXIDE 26 MMOL/L (21-32); CHLORIDE 91 MMOL/L (98-107); CREATININE 0.8 MG/DL (0.55-1.30); SODIUM 128 MMOL/L (136-145)
[2019-08-31 14:57] VITALS: BP 160/94
[2019-08-31 15:01] LABS: ALANINE AMINOTRANSFERASE 30 U/L (12-78); ALBUMIN/GLOBULIN RATIO 0.7 (1.0-2.7); ALKALINE PHOSPHATASE 111 U/L (46-116); ASPARTATE AMINO TRANSFERASE 42 U/L (15-37); BILIRUBIN,TOTAL 0.7 MG/DL (0.2-1.0); CKMB 1.2 NG/ML (0.0-3.6); CREATINE KINASE 21 U/L (26-308)
[2019-08-31] MEDS ORDERED: COREG6.25 MG ORAL (15:16)
[2019-08-31] MEDS ORDERED: FUROSEMIDE40 MG ORAL (15:16)
[2019-08-31 15:40] LABS: INR 1.1 (0.9-1.1)
[2019-08-31] MEDS ORDERED: Albuterol/Ipratropium 3ml neb HHN PRN (16:00)
--- NOTE | 2019-08-31 16:00 | Pre-Procedure Note/Attestation ---
Pre-Procedure Note/Attestation Complete Prior to Procedure Planned Procedure: right Procedure Narrative: thoracentesis Indications for Procedure Pre-Operative Diagnosis: R pleural effusion, SOB Attestation I attest that I discussed the nature of the procedure; its benefits; risks and complications; and alternatives (and the risks and benefits of such alternatives ), prior to the procedure, with the patient (or the patient's legal healthcare representative). I attest that, if there was a reasonable possibility of needing a blood transfusion, the patient (or the patient's legal healthcare representative) was given the [facility] standardized written summary, pursuant to the Tani [place] Blood Safety Act ([place] Health and Safety Code # 1645, as amended). I attest that I re-evaluated the patient just prior to the surgery and that there has been no change in the patient's H&P, except as documented below: Adarsh Iglesias MD Aug 31, 2019 16:00
--- NOTE | 2019-08-31 16:49 | Brief Operative Note ---
Immediate Post Operative Note Operative Note Pre-op Diagnosis: R pleural effusion, SOB Procedure: R thoracentesis Post-op Diagnosis: same as pre-op Surgeon: Sol Rosas Anesthesia: local Specimen: yes Complications: none Fluids: none Implant(s) used?: No Adarsh Rosas MD Aug 31, 2019 16:49
--- NOTE | 2019-08-31 17:13 | Diagnostic Imaging Report ---
Indication: Shortness of breath Technique: One view of the chest Comparison: none Findings: There is a massive right pleural effusion, occupying most of the right hemithorax, with only minimal residual aerated lung present. The left lung and pleural space are clear. The heart size is normal Impression: Massive right pleural effusion
--- NOTE | 2019-08-31 17:37 | Diagnostic Imaging Report ---
Indications: Pleural effusion Technique: Ultrasound used to localize optimal puncture site. Sterile prepping and draping right chest. Local anesthesia with 1% lidocaine. Under real-time ultrasound guidance, puncture pleural space using thoracentesis needle. Stylet removed. Catheter placed to vacuum bottle suction. Total 1500 milliliters of fluid aspirated. Patient tolerated procedure well, without immediate complication. Findings: Followup sonography demonstrates near complete resolution of pleural fluid. Impression: Successful ultrasound-guided thoracentesis, yielding 1500 milliliters of fluid
--- NOTE | 2019-08-31 17:40 | Diagnostic Imaging Report ---
Indication: Status post thoracentesis Technique: One view of the chest Comparison: 2 hours earlier Findings: Interim apparent slight decrease in amount of pleural fluid on the right with slight increased in amount of aerated lung. There is still opacification of most of the right. The left lung and pleural space remain clear. No pneumothorax Impression: Only mild decrease in right pleural opacification and mild increase in aeration of the right lung, despite recent fairly high volume (1500 mL) thoracentesis. Residual pleural opacity may reflect either residual pleural fluid, and reexpanded atelectatic lung, or both. Given minimal pleural fluid seen on completion ultrasound after thoracentesis, this probably mostly represents atelectatic lung No evidence of pneumothorax
[2019-08-31 18:16] VITALS: BP 140/67
--- NOTE | 2019-08-31 18:18 | NUR ---
ED Nurse Note: patient able to use bedside commode with assist. urine sent to lab
[2019-08-31 19:00] LABS: APPEARANCE,URINE SLIGHTLY CLOUDY; BILIRUBIN, URINE NEGATIVE (NEGATIVE); COLOR,URINE AMBER; GLUCOSE, URINE (UA) NEGATIVE (NEGATIVE); KETONES,URINE 2+ (NEGATIVE); LEUKOCYTE ESTERASE ,URINE 1+ (NEGATIVE); NITRITE,URINE NEGATIVE (NEGATIVE); PH,URINE 5 (4.5-8.0); PROTEIN,URINE 2+ (NEGATIVE); UROBILINOGEN,URINE NORMAL MG/DL (0.0-1.0)
--- NOTE | 2019-08-31 19:03 | NUR ---
HAND-OFF: Report given to Broderick Gilliam RN.
--- NOTE | 2019-08-31 19:05 | NUR ---
ED Nurse Note: received report from Alis AMEZCUA. PT vss, nad, family at bedside. will continue to monitor patient.
[2019-08-31 19:25] VITALS: BP 143/70
--- NOTE | 2019-08-31 20:20 | NUR ---
ED Nurse Note: gave report to Donny AMEZCUA for 205-2. Per rn, bed is not ready and needs cleaning. glove turner and former aware.
--- NOTE | 2019-08-31 20:40 | NUR ---
TRANSFER TO FLOOR: Patient transferred to [facility] via gurney accompanied by 2 rn in stable condition as ordered, per dr. Schaefer . Report given to Donny AMEZCUA. Belongings sent with patient.
[2019-08-31 21:00] VITALS: BP 140/82
--- NOTE | 2019-08-31 21:00 | NUR ---
NURSE NOTES: Pt arrived via gurney from ER. Got report from Broderick AMEZCUA. Initial assessment done. Pt is in stable condition. Denies any pain. Denies any n/v. Pt admitted for dyspnea. VS T:97.4 HR:105 R:20 BP:140/82 O2:95% on 2L NC. No skin issues noted. Belongings list verified. threat monitoring analyst placed on pt running Sinus Tachycardia on the monitor. Pt resting in bed comfortably. Bed in low and locked position, call light within reach, bedside table within reach. Continue to monitor. Orders placed by Dr. Hernandez.
[2019-08-31] MEDS: Docusate 100mg cap ORAL SCH (21:50)
[2019-08-31] MEDS: Levofloxacin 500mg tab ORAL SCH (21:51)
[2019-09-01] VITALS (7 sets, daily range): BP systolic 132–153; BP diastolic 83–103
[2019-09-01 06:52] LABS: BASOPHILS % (AUTO) 1.4 % (0.0-2.0); EOSINOPHILS % (AUTO) 0.7 % (0.0-3.0); HEMATOCRIT 41.7 % (37.0-47.0); HEMOGLOBIN 13.7 G/DL (12.0-16.0); LYMPHOCYTES % (AUTO) 17.7 % (20.0-45.0); MEAN CORPUSCULAR VOLUME 81 FL (80-99); MONOCYTES % (AUTO) 12.5 % (1.0-10.0); NEUTROPHILS % (AUTO) 67.8 % (45.0-75.0); PLATELET COUNT 648 K/UL (150-450); RED BLOOD COUNT 5.15 M/UL (4.20-5.40); RED CELL DISTRIBUTION WIDTH 14.2 % (11.6-14.8); WHITE BLOOD COUNT 13.5 K/UL (4.8-10.8)
[2019-09-01 06:56] LABS: ANION GAP 9 mmol/L (5-15); BLOOD UREA NITROGEN 16 mg/dL (7-18); CALCIUM 9.1 MG/DL (8.5-10.1); CARBON DIOXIDE 27 MMOL/L (21-32); CHLORIDE 91 MMOL/L (98-107); CREATININE 0.8 MG/DL (0.55-1.30); SODIUM 127 MMOL/L (136-145)
--- NOTE | 2019-09-01 07:15 | NUR ---
HAND-OFF: Report given to Min RN.
--- NOTE | 2019-09-01 08:30 | NUR ---
NURSE NOTES: Patient received from Min RN. Patient stable AOx4. No s/sx of distress. Still complaining of nausea. Would like medications to be given later. RR even and unlabored on 2L NC. Side rails upx2, call light within reach, bed low and locked. Will continue to monitor.
[2019-09-01] MEDS: Levofloxacin 500mg tab ORAL SCH (09:27)
[2019-09-01] MEDS: Docusate 100mg cap ORAL SCH ×2 (09:27→19:54)
--- NOTE | 2019-09-01 12:50 | NUR ---
NURSE NOTES: Attempted to walk around with patient to see oxygen saturation. Baseline O2 93%. Upon standing O2 dropped to 88% and patient felt weak and SOB. Patient sat back down and Dr. Schaefer contacted. Order received for oxygen through case management.
--- NOTE | 2019-09-01 14:45 | NUR ---
CASE MANAGEMENT:INITIAL REVIEW 74YR OLD FEMALE FROM HOME CC:DYSPNEA/ RESP. DISTRESS SI:PLEURAL EFFUSION . DYSPNEA . OVARIAN CANCER 98.8 112 25 175/100 93% ON RA WBC 15.7 PLT 626 NA+129 CL-91 BG 123 BNP 489 IS:IV ZOFRAN X1 \: 2E TELE UNIT PLAN: NEEDS HOME O2 O2 SAT DROPPED WHILE AMBULATING
--- NOTE | 2019-09-01 15:05 | Consultation ---
History of Present Illness General Chief Complaint: Dyspnea/Respdistress Present Illness Allergies: Coded Allergies: No Known Allergies (Unverified , 06/30/19) Medication History Scheduled Carvedilol (Coreg), 6.25 MG ORAL EVERY 12 HOURS, (Reported) Furosemide* (Lasix*), 40 MG ORAL DAILY, (Reported) Patient History Healthcare decision maker N Resuscitation status Advanced Directive on File Physical Exam Last 24 Hour Vital Signs Date Time Temp Pulse Resp B/P (MAP) Pulse Ox O2 Delivery O2 Flow Rate FiO2 09/01/19 12:00 97.5 105 20 132/86 (101) 95 09/01/19 12:00 103 09/01/19 10:42 Nasal Cannula 2.0 09/01/19 08:00 97.9 110 20 148/94 (112) 96 09/01/19 08:00 107 09/01/19 04:00 88 09/01/19 04:00 2.0 09/01/19 04:00 97.7 104 19 142/85 (104) 96 09/01/19 01:26 Nasal Cannula 2.0 09/01/19 00:15 Nasal Cannula 2.0 09/01/19 00:00 109 09/01/19 00:00 97.9 106 20 147/89 (108) 95 08/31/19 21:00 97.4 105 20 140/82 (101) 95 08/31/19 20:40 98.6 92 20 139/77 98 Nasal Cannula 2.0 08/31/19 19:25 98.7 93 20 143/70 98 Nasal Cannula 2.0 08/31/19 18:16 98.8 87 22 140/67 97 Nasal Cannula 2.0 Intake and Output 08/31/19 09/01/19 19:00 07:00 Intake Total 780 ml Balance 780 ml Intake Oral 780 ml # Voids 4 # Bowel Movements 2 Laboratory Tests Test 08/31/19 15:21 08/31/19 18:05 09/01/19 06:10 Prothrombin Time 11.4 SEC (9.30-11.50) Prothromb Time International Ratio 1.1 (0.9-1.1) Urine Color Anne Urine Appearance Slightly cloudy Urine pH 5 (4.5-8.0) Urine Specific [place] 1.025 (1.005-1.035) Urine Protein 2+ (NEGATIVE) H Urine Glucose (UA) Negative (NEGATIVE) Urine Ketones 2+ (NEGATIVE) H Urine Blood 3+ (NEGATIVE) H Urine Nitrite Negative (NEGATIVE) Urine Bilirubin Negative (NEGATIVE) Urine Ictotest Negative (NEGATIVE) Urine Urobilinogen Normal MG/DL (0.0-1.0) Urine Leukocyte Esterase 1+ (NEGATIVE) H Urine RBC 0-2 /HPF (0 - 2) Urine WBC 5-10 /HPF (0 - 2) H Urine Squamous Epithelial Cells Moderate /LPF (NONE/OCC) H Urine Amorphous Sediment Few /LPF (NONE) H Urine Bacteria Few /HPF (NONE) Urine Hyaline Casts 0-2 /LPF (NONE) H Urine Granular Casts /LPF (NONE) Urine Fine Granular Casts 0-2 /LPF (NONE) H Urine Coarse Granular Casts 0-2 /LPF (NONE) H White Blood Count 13.5 K/UL (4.8-10.8) H Red Blood Count 5.15 M/UL (4.20-5.40) Hemoglobin 13.7 G/DL (12.0-16.0) Hematocrit 41.7 % (37.0-47.0) Mean Corpuscular Volume 81 FL (80-99) Mean Corpuscular Hemoglobin 26.6 PG (27.0-31.0) L Mean Corpuscular Hemoglobin Concent 32.9 G/DL (32.0-36.0) Red Cell Distribution Width 14.2 % (11.6-14.8) Platelet Count 648 K/UL (150-450) H Mean Platelet Volume 5.7 FL (6.5-10.1) L Neutrophils (%) (Auto) 67.8 % (45.0-75.0) Lymphocytes (%) (Auto) 17.7 % (20.0-45.0) L Monocytes (%) (Auto) 12.5 % (1.0-10.0) H Eosinophils (%) (Auto) 0.7 % (0.0-3.0) Basophils (%) (Auto) 1.4 % (0.0-2.0) Sodium Level 127 MMOL/L (136-145) L Potassium Level 5.0 MMOL/L (3.5-5.1) Chloride Level 91 MMOL/L (98-107) L Carbon Dioxide Level 27 MMOL/L (21-32) Anion Gap 9 mmol/L (5-15) Blood Urea Nitrogen 16 mg/dL (7-18) Creatinine 0.8 MG/DL (0.55-1.30) Estimat Glomerular Filtration Rate mL/min (>60) Glucose Level 99 MG/DL (74-106) Calcium Level 9.1 MG/DL (8.5-10.1) Microbiology Date/Time Source Procedure Growth Status 08/31/19 21:00 Rectum Received Height (Feet): 5 Height (Inches): 6.00 Weight (Pounds): 175 Medications Current Medications Medications (Trade) Dose Ordered Sig/Tiffani Route PRN Reason Start Time Stop Time Status Last Admin Dose Admin Acetaminophen (Tylenol) 650 mg Q4H PRN ORAL Mild Pain (Pain Scale 1-3) 08/31/19 16:00 09/30/19 15:59 Albuterol/ Ipratropium (Albuterol/ Ipratropium) 3 ml Q6H PRN HHN Shortness of Breath 08/31/19 16:00 09/05/19 15:59 Dextrose (Dextrose 50%) 25 ml Q30M PRN IV Hypoglycemia 08/31/19 16:00 09/30/19 15:59 Dextrose (Dextrose 50%) 50 ml Q30M PRN IV Hypoglycemia 08/31/19 16:00 09/30/19 15:59 Docusate Sodium (Colace) 100 mg EVERY 12 HOURS ORAL 08/31/19 21:00 09/30/19 20:59 09/01/19 09:27 Famotidine (Pepcid) 10 mg DAILY ORAL 09/01/19 09:00 10/01/19 08:59 09/01/19 09:27 Furosemide (Lasix) 40 mg DAILY IV 09/01/19 09:00 10/01/19 08:59 09/01/19 09:27 Levofloxacin (Levaquin) 500 mg DAILY ORAL 08/31/19 18:00 09/07/19 17:59 09/01/19 09:27 Ondansetron HCl (Zofran) 4 mg Q6H PRN IVP Nausea & Vomiting 08/31/19 16:00 09/30/19 15:59 09/01/19 13:56 Assessment/Plan Assessment/Plan: Hematology Oncology Consult REJulianne AWAD: Ty Schaefer [facility]: 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 She was told that she has a history of COPD but not on medication. She presents with chief complaint of abdominal pain with shortness of breath. She was here on Thanksgiving for the similar symptoms and aprox 1 month ago. She had abdominal pain with nausea vomiting and diarrhea. She was also short of breath. She had wheezing. Chest x-ray showed a possible right lower lobe consolidation. Wheezing improved after breathing treatment. Patient was discharged home on antibiotics. The diarrhea and vomiting improved. She is now has some abdominal fullness and tenderness. She still felt very weak and tired. Still feels short of breath. Finish her antibiotics today. No relief. Denies any fever chills but denies any chest pain. Worse with exertion. Better with rest. Since admission, had a ct scan showed periotneal carcinomatosis, with e/o large right pleural effusion, has also a thora was done, 1500cc fluids aspirated, I have discussed with patient and her daughter, they are considering to f/u with the [facility], may come to our clinic as well , but are in no gonzalez to start treatment. Allergies: Coded Allergies: No Known Allergies (Unverified , 06/30/19) Past Medical History: see triage record, old chart reviewed, HTN Past Surgical History: none Pertinent Family History: none Social History: Denies: smoking Immunizations: other Reviewed Nursing Documentation: PMH: Agreed; PSxH: Agreed Past Medical History: No History, Except For Hx Hypertension: Yes Review of Systems Constitutional: Reports: malaise, weakness Eye: Denies: eye pain, blurred vision ENT: Denies: ear pain, nose congestion, throat swelling Respiratory: Reports: cough, shortness of breath Cardiovascular: Denies: chest pain, palpitations Gastrointestinal: Reports: abdominal pain; Denies: diarrhea, nausea, vomiting Musculoskeletal: Denies: back pain, joint pain Skin: Denies: rash Endocrine: Denies: increased thirst, increased urine Hematologic/Lymphatic: Denies: easy bruising All Other Systems: negative except mentioned in HPI PE Vitals: noted Gen: well appearing, alert, mild distress Respiratory: chest non-tender, decreased breath sounds especially right side Cardiovascular: regular rate, rhythm, no murmur Gastrointestinal: normal bowel sounds, no mass, no organomegaly, no bruit, non- distended, tenderness - Abdominal pain, mild, diffuse Musculoskeletal: back normal, normal range of motion, gait/station normal Psychiatric: mood/affect normal Ext: no cce Neuro: tired and confused Labs: noted Imaging: reviewed Cxr is s/p thora 1500ml Assessment and Recs # 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 Does have lung involvement. also liver involvement. CT Enlarged uterus with central 5.3 x 5 cm mixed echogenicity masslike lesion. In retrospect, prior CT does demonstrate some heterogeneous attenuation in this area. While possibly representing a uterine fibroid, patient age and evidence of metastatic intraperitoneal malignancy raises concern for malignant neoplasm as etiology of this finding. Has peritoneal carcinomatosis --> pelvic us reviewed and cw above --> imaging is noted, CT Abdominal ascites. 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, does show mullerian/supervisor fabrication source --> likely requires outpatient chemotherapy with a bevacizumab-based regimen, dw patient and her daughter, are in no gonzalez to start treatment --> have discussed with them the importance of treatment, immediately, and will schedule for outpatient rx, will f/u in clinic if possible # Leukocytosis may be due to malginancy --> r/o infection, is on levaquin --> wbc trend 19-->20->14 # Thrombocytosis also related to malignancy --> unlikely myelofproliferative d/o --> trend as needed 965k-->1000k-->648k # Pleural effusion, right --> drain as needed with thora # COPD with exacerbation --> steriods prn, breathing rx --> per pulm # Malignant ascites # Acute hyponatremia # Abdominal pain DW RN and appreciate consultation. Selvin Atkins MD Sep 01, 2019 15:05
--- NOTE | 2019-09-01 19:24 | NUR ---
HAND-OFF: Report given to Anil AMEZCUA. Patient stable, ST on monitor. AOx1. VSS. All belongings with patient. Caregiver at bedide. Side rails upx2, call light within reach, bed low and locked. Endorsed that she is an admission and MD needs to be contacted. Addendum: 09/01/19 at 1928 by JUDD WHITE RN DISREGARD. WRONG PATIENT.
--- NOTE | 2019-09-01 19:28 | NUR ---
HAND-OFF: Report given to Felix Charles RN. Patient stable complaining of nausea. Plan of care endorsed.
--- NOTE | 2019-09-01 19:30 | NUR ---
NURSE NOTES: Received patient from Vanessa AMEZCUA. Patient in bed, on 2L NC, no signs of respiratory distress. Daughter at bedside. Bed in low position, locked, call light within reach.
--- NOTE | 2019-09-01 19:30 | Consultation ---
DATE OF CONSULTATION: 09/01/2019 CONSULTING PHYSICIAN: Ty Schaefer M.D. REFERRING PHYSICIAN: Dat Perez D.O. REASON FOR ADMISSION: Shortness of breath. REASON FOR CONSULTATION: Hyponatremia. HISTORY OF PRESENT ILLNESS: The patient is a pleasant 74-year-old female, well known to me, who has stage IV ovarian cancer with disease to the abdominal cavity and metastasis and right-sided pleural effusion, was brought in for further evaluation and care of shortness of breath. She did undergo 1 L thoracentesis. Upon her last admission, Hematology-Oncology followup was arranged. However, since her discharge, the patient never followed up with her oncologist and is questioning whether or not she wants to continue with chemotherapy. At this time, the patient has tentatively agreed for chemotherapy as an outpatient. ALLERGIES: No known drug allergies. PAST MEDICAL HISTORY: 1. Hypertension. 2. Stage IV ovarian cancer. 3. Shortness of breath FAMILY HISTORY: Positive for cancer. SOCIAL HISTORY: No tobacco, alcohol, or illicit drug use. PHYSICAL EXAMINATION: VITAL SIGNS: Blood pressure 148/94, respiratory rate 20, pulse 110, and temperature 97.9. 96% oxygen saturation on room air. GENERAL: The patient is awake and alert, not in distress. HEENT: Extraocular muscles intact. No lymphadenopathy noted. CARDIOVASCULAR: S1, S2. No rubs or gallops. PULMONARY: Clear to auscultation bilaterally. No rales, rhonchi, or wheezes. ABDOMEN: Nondistended and nontender. EXTREMITIES: No edema noted. LABORATORY DATA: Labs dated September 01, 2019, sodium 127, potassium 5, creatinine 0.8. White cell count 13.5 and platelet count 648,000. ASSESSMENT AND PLAN: 1. Shortness of breath secondary to pleural effusion, status post thoracentesis. At this time, appreciate Pulmonary assistance. 2. Possible pneumonia with elevated white count. The patient will be discharged on Levaquin for one week. 3. 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 We will continue fluid restriction and Lasix. 4. Stage IV ovarian metastatic cancer with right pleural effusion. At this time, the patient has been seen by Hematology-Oncology and should have followup to start chemotherapy. 5. Leukocytosis- possible PNA. Levaquin for 1 week Ty Schaefer MD DR: BOB JOB#: [id number] CC: GENOVEVA
--- NOTE | 2019-09-01 20:00 | History and Physical Report ---
DATE OF ADMISSION: 09/01/2019 CONSULTANTS: 1. Ty Schaefer M.D. 2. Chao Atkins M.D. CHIEF COMPLAINT: Dyspnea and metastatic ovarian cancer. BRIEF HISTORY: This is a 74-year-old female, who lives at home, presents with 3 days of increased shortness of breath, came to [facility], diagnosed with the above, was admitted. Currently, calm, O2 NC, slightly short of breath, no complaint. REVIEW OF SYSTEMS: No chest pain. Slight short of breath. No nausea, vomiting, or diarrhea. PAST MEDICAL HISTORY: Includes metastatic ovarian cancer and hypertension. PAST SURGICAL HISTORY: None. MEDICATIONS: Include famotidine, , levofloxacin, docusate sodium, albuterol, Tylenol, and Zofran. ALLERGIES: Denies. SOCIAL HISTORY: No smoking. No alcohol. No intravenous drug abuse. FAMILY HISTORY: Noncontributory. PHYSICAL EXAMINATION: GENERAL: O2 NC, calm in bed, slight short of breath. VITAL SIGNS: Temperature is 97, pulse 103, respirations 20, and blood pressure 132/86. CARDIOVASCULAR: No murmurs. LUNGS: Poor air exchange. ABDOMEN: Bowel sounds distant. EXTREMITIES: No cyanosis, clubbing, or edema. NEUROLOGIC: The patient moves all extremities, slightly weak. LABORATORY AND DIAGNOSTIC DATA: Labs at this time show white count 13, otherwise platelets 648,000. Sodium 127 and chloride 91. INR is 1.1. Urinalysis is 1+ leukocyte esterase. ASSESSMENT: 1. Dyspnea. 2. Hyponatremia. 3. Metastatic ovarian cancer. 4. Urinary tract infection. 5. Hypertension. PLAN: 1. O2 and pulmonary treatment. 2. Antibiotics per Infectious Disease. 3. Blood pressure control. 4. Dietary followup. 5. Hematology and Nephrology followup to adjust electrolytes. 6. We will check a CBC and BMP. 7. Discharge pending in the morning. Dat Perez D.O. DR: TIANA JOB#: [id number] CC:
--- NOTE | 2019-09-01 20:15 | Consultation ---
DATE OF CONSULTATION: 08/31/2019 PULMONARY CONSULTATION REASON FOR CONSULT: Pleural effusion. HISTORY OF PRESENT ILLNESS: This is a 74-year-old female with a history of ovarian carcinoma. This is newly diagnosed. She has a history also of chronic obstructive pulmonary disease. The patient presented with shortness of breath and abdominal pain. She underwent a pleurocentesis with drainage of fluid. At this point, she is feeling better. The patient also has history of peritoneal carcinomatosis. PAST MEDICAL HISTORY: Notable as discussed above for chronic obstructive pulmonary disease and ovarian carcinoma. SURGERIES: None reported. HOME MEDICATIONS: Reviewed and reconciled. REVIEW OF SYSTEMS: The patient denies any headaches, hematemesis, melena, hematochezia, night sweats, or weight loss. PHYSICAL EXAMINATION: GENERAL: Reveals a 72-year-old female. HEENT: Unremarkable. CHEST: Shows decreased breath sounds in the right base. ABDOMEN: Soft. EXTREMITIES: There is no edema. NEUROLOGIC: Nonfocal. LABORATORY DATA: Lab testing is notable for white count 13,500, platelet count is 648,000. Sodium 127 and chloride 91. X-ray, as discussed above. Post procedure x-ray of the chest shows decrease in the right pleural calcification. IMPRESSION: 1. Right pleural effusion likely secondary to ovarian carcinoma. 2. Leukocytosis. 3. Thrombocytosis. 4. Chronic obstructive pulmonary disease. DISCUSSION: Agree with present management and care. The patient has been seen by Hematology/Oncology. Outpatient chemotherapy has been advocated. At this point, the patient is comfortable and likely we will discharge home with outpatient follow up with Oncology. Sina Metcalf M.D. DR: EMY JOB#: [id number] CC:
[2019-09-02] VITALS (7 sets, daily range): BP systolic 130–161; BP diastolic 82–89
--- NOTE | 2019-09-02 05:49 | Hematology/Onc Progress Note ---
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 Does have lung involvement. also liver involvement. CT Enlarged uterus with central 5.3 x 5 cm mixed echogenicity masslike lesion. In retrospect, prior CT does demonstrate some heterogeneous attenuation in this area. While possibly representing a uterine fibroid, patient age and evidence of metastatic intraperitoneal malignancy raises concern for malignant neoplasm as etiology of this finding. Has peritoneal carcinomatosis --> pelvic us reviewed and cw above --> imaging is noted, CT Abdominal ascites. 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, does show mullerian/urogynecology physician source --> likely requires outpatient chemotherapy with a bevacizumab-based regimen, dw patient and her daughter, they are in no gonz[place] to start treatment --> have discussed with them the importance of treatment, immediately, and will schedule for outpatient rx, will f/u in clinic if possible # Leukocytosis may be due to malginancy --> r/o infection, is on levaquin --> wbc trend 19-->20->14 # Thrombocytosis also related to malignancy --> unlikely myelofproliferative d/o --> trend as needed 965k-->1000k-->648k # Pleural effusion, right --> drain as needed with thora --> 09/01 s/p thora # COPD with exacerbation --> steriods prn, breathing rx --> per pulm # Malignant ascites # Acute hyponatremia # Abdominal pain DW RN and appreciate consultation. Subjective Constitutional: Denies: no symptoms, chills, fever, malaise, weakness, other HEENT: Denies: no symptoms, eye pain, blurred vision, tearing, double vision, ear pain, ear discharge, nose pain, nose congestion, throat pain, throat swelling, mouth pain, mouth swelling, other Respiratory: Denies: no symptoms, cough, shortness of breath, SOB with excertion, SOB at rest, sputum, wheezing, other Gastrointestinal/Abdominal: Denies: no symptoms, abdomen distended, abdominal pain, black stools, tarry stools, blood in stool, constipated, diarrhea, difficulty swallowing, nausea, poor appetite, poor fluid intake, rectal bleeding , vomiting, other Genitourinary: Denies: no symptoms, burning, discharge, frequency, flank pain, hematuria, incontinence, pain, urgency, other Neurologic/Psychiatric: Denies: no symptoms, anxiety, depressed, emotional problems, headache, numbness, paresthesia, pre-existing deficit, seizure, tingling, tremors, weakness, other Endocrine: Denies: no symptoms, excessive sweating, flushing, intolerance to cold, intolerance to heat, increased hunger, increased thirst, increased urine, unexplained weight gain, unexplained weight loss, other Allergies: Coded Allergies: No Known Allergies (Unverified , 06/30/19) Subjective 09/02: no bleeding or chills, seen by pulm, renal, for dc shortly, labs noted Objective Objective Current Medications Medications (Trade) Dose Ordered Sig/Tiffani Route PRN Reason Start Time Stop Time Status Last Admin Dose Admin Acetaminophen (Tylenol) 650 mg Q4H PRN ORAL Mild Pain (Pain Scale 1-3) 08/31/19 16:00 09/30/19 15:59 Albuterol/ Ipratropium (Albuterol/ Ipratropium) 3 ml Q6H PRN HHN Shortness of Breath 08/31/19 16:00 09/05/19 15:59 Dextrose (Dextrose 50%) 25 ml Q30M PRN IV Hypoglycemia 08/31/19 16:00 09/30/19 15:59 Dextrose (Dextrose 50%) 50 ml Q30M PRN IV Hypoglycemia 08/31/19 16:00 09/30/19 15:59 Docusate Sodium (Colace) 100 mg EVERY 12 HOURS ORAL 08/31/19 21:00 09/30/19 20:59 09/01/19 19:54 Famotidine (Pepcid) 10 mg DAILY ORAL 09/01/19 09:00 10/01/19 08:59 09/01/19 09:27 Furosemide (Lasix) 40 mg DAILY IV 09/01/19 09:00 10/01/19 08:59 09/01/19 09:27 Levofloxacin (Levaquin) 500 mg DAILY ORAL 08/31/19 18:00 09/07/19 17:59 09/01/19 09:27 Ondansetron HCl (Zofran) 4 mg Q6H PRN IVP Nausea & Vomiting 08/31/19 16:00 09/30/19 15:59 09/01/19 19:50 Last 24 Hour Vital Signs Date Time Temp Pulse Resp B/P (MAP) Pulse Ox O2 Delivery O2 Flow Rate FiO2 09/02/19 04:00 98.4 100 16 150/89 (109) 98 09/02/19 04:00 97 09/02/19 00:00 98.0 106 18 131/89 (103) 97 09/02/19 00:00 96 09/01/19 22:00 113 139/83 (101) 09/01/19 21:00 Nasal Cannula 2.0 09/01/19 20:00 123 09/01/19 20:00 97.9 121 16 153/103 (120) 97 09/01/19 16:00 98.1 105 20 150/90 (110) 95 09/01/19 16:00 73 09/01/19 12:00 97.5 105 20 132/86 (101) 95 09/01/19 12:00 103 09/01/19 10:42 Nasal Cannula 2.0 09/01/19 08:00 97.9 110 20 148/94 (112) 96 09/01/19 08:00 107 09/01/19 04:00 88 09/01/19 04:00 2.0 09/01/19 04:00 97.7 104 19 142/85 (104) 96 09/01/19 01:26 Nasal Cannula 2.0 09/01/19 00:15 Nasal Cannula 2.0 09/01/19 00:00 109 09/01/19 00:00 97.9 106 20 147/89 (108) 95 08/31/19 21:00 97.4 105 20 140/82 (101) 95 08/31/19 20:40 98.6 92 20 139/77 98 Nasal Cannula 2.0 08/31/19 19:25 98.7 93 20 143/70 98 Nasal Cannula 2.0 08/31/19 18:16 98.8 87 22 140/67 97 Nasal Cannula 2.0 08/31/19 14:57 98.8 113 22 160/94 97 Nasal Cannula 2.0 08/31/19 13:45 98.8 118 26 130/117 96 Nasal Cannula 2.0 08/31/19 13:37 112 25 Room Air 08/31/19 13:17 112 25 175/100 (125) 93 Room Air Intake and Output 09/01/19 09/02/19 18:59 06:59 # Voids 2 Labs Test 08/31/19 14:06 08/31/19 15:21 08/31/19 18:05 09/01/19 06:10 White Blood Count 15.7 K/UL (4.8-10.8) 13.5 K/UL (4.8-10.8) Red Blood Count 5.20 M/UL (4.20-5.40) 5.15 M/UL (4.20-5.40) Hemoglobin 13.6 G/DL (12.0-16.0) 13.7 G/DL (12.0-16.0) Hematocrit 41.8 % (37.0-47.0) 41.7 % (37.0-47.0) Mean Corpuscular Volume 80 FL (80-99) 81 FL (80-99) Mean Corpuscular Hemoglobin 26.2 PG (27.0-31.0) 26.6 PG (27.0-31.0) Mean Corpuscular Hemoglobin Concent 32.6 G/DL (32.0-36.0) 32.9 G/DL (32.0-36.0) Red Cell Distribution Width 14.1 % (11.6-14.8) 14.2 % (11.6-14.8) Platelet Count 626 K/UL (150-450) 648 K/UL (150-450) Mean Platelet Volume 5.8 FL (6.5-10.1) 5.7 FL (6.5-10.1) Neutrophils (%) (Auto) 75.9 % (45.0-75.0) 67.8 % (45.0-75.0) Lymphocytes (%) (Auto) 14.1 % (20.0-45.0) 17.7 % (20.0-45.0) Monocytes (%) (Auto) 8.8 % (1.0-10.0) 12.5 % (1.0-10.0) Eosinophils (%) (Auto) 0.2 % (0.0-3.0) 0.7 % (0.0-3.0) Basophils (%) (Auto) 1.0 % (0.0-2.0) 1.4 % (0.0-2.0) Sodium Level 128 MMOL/L (136-145) 127 MMOL/L (136-145) Potassium Level 5.0 MMOL/L (3.5-5.1) 5.0 MMOL/L (3.5-5.1) Chloride Level 91 MMOL/L (98-107) 91 MMOL/L (98-107) Carbon Dioxide Level 26 MMOL/L (21-32) 27 MMOL/L (21-32) Anion Gap 11 mmol/L (5-15) 9 mmol/L (5-15) Blood Urea Nitrogen 17 mg/dL (7-18) 16 mg/dL (7-18) Creatinine 0.8 MG/DL (0.55-1.30) 0.8 MG/DL (0.55-1.30) Estimat Glomerular Filtration Rate mL/min (>60) mL/min (>60) Glucose Level 123 MG/DL (74-106) 99 MG/DL (74-106) Lactic Acid Level 1.80 mmol/L (0.4-2.0) Calcium Level 9.5 MG/DL (8.5-10.1) 9.1 MG/DL (8.5-10.1) Total Bilirubin 0.7 MG/DL (0.2-1.0) Aspartate Amino Transf (AST/SGOT) 42 U/L (15-37) Alanine Aminotransferase (ALT/SGPT) 30 U/L (12-78) Alkaline Phosphatase 111 U/L (46-116) Total Creatine Kinase 21 U/L (26-308) Creatine Kinase MB 1.2 NG/ML (0.0-3.6) Creatine Kinase MB Relative Index 5.7 Troponin I 0.000 ng/mL (0.000-0.056) Pro-B-Type Natriuretic Peptide 489 pg/mL (0-125) Total Protein 7.5 G/DL (6.4-8.2) Albumin 3.0 G/DL (3.4-5.0) Globulin 4.5 g/dL Albumin/Globulin Ratio 0.7 (1.0-2.7) Lipase 52 U/L (73-393) Prothrombin Time 11.4 SEC (9.30-11.50) Prothromb Time International Ratio 1.1 (0.9-1.1) Urine Color Anne Urine Appearance Slightly cloudy Urine pH 5 (4.5-8.0) Urine Specific Cicero 1.025 (1.005-1.035) Urine Protein 2+ (NEGATIVE) Urine Glucose (UA) Negative (NEGATIVE) Urine Ketones 2+ (NEGATIVE) Urine Blood 3+ (NEGATIVE) Urine Nitrite Negative (NEGATIVE) Urine Bilirubin Negative (NEGATIVE) Urine Ictotest Negative (NEGATIVE) Urine Urobilinogen Normal MG/DL (0.0-1.0) Urine Leukocyte Esterase 1+ (NEGATIVE) Urine RBC 0-2 /HPF (0 - 2) Urine WBC 5-10 /HPF (0 - 2) Urine Squamous Epithelial Cells Moderate /LPF (NONE/OCC) Urine Amorphous Sediment Few /LPF (NONE) Urine Bacteria Few /HPF (NONE) Urine Hyaline Casts 0-2 /LPF (NONE) Urine Granular Casts /LPF (NONE) Urine Fine Granular Casts 0-2 /LPF (NONE) Urine Coarse Granular Casts 0-2 /LPF (NONE) Test 09/01/19 14:06 Height (Feet): 5 Height (Inches): 6.00 Weight (Pounds): 175 Objective Gen: well appearing, alert, mild distress Respiratory: chest non-tender, decreased breath sounds especially right side Cardiovascular: regular rate, rhythm, no murmur Gastrointestinal: normal bowel sounds, no mass, no organomegaly,Abdominal pain , mild, diffuse Musculoskeletal: back normal, normal range of motion, gait/station normal Psychiatric: mood/affect normal Ext: no cce Neuro: tired and confused Selvin Atkins MD Sep 02, 2019 05:49
[2019-09-02 06:57] LABS: BASOPHILS % (AUTO) 1.8 % (0.0-2.0); EOSINOPHILS % (AUTO) 0.4 % (0.0-3.0); HEMATOCRIT 40.4 % (37.0-47.0); HEMOGLOBIN 13.2 G/DL (12.0-16.0); LYMPHOCYTES % (AUTO) 18.8 % (20.0-45.0); MEAN CORPUSCULAR VOLUME 81 FL (80-99); MONOCYTES % (AUTO) 11.9 % (1.0-10.0); NEUTROPHILS % (AUTO) 67.2 % (45.0-75.0); PLATELET COUNT 635 K/UL (150-450); RED BLOOD COUNT 5.01 M/UL (4.20-5.40); WHITE BLOOD COUNT 15.3 K/UL (4.8-10.8)
[2019-09-02 07:01] LABS: ANION GAP 6 mmol/L (5-15); BLOOD UREA NITROGEN 22 mg/dL (7-18); CALCIUM 9.2 MG/DL (8.5-10.1); CARBON DIOXIDE 31 MMOL/L (21-32); CHLORIDE 91 MMOL/L (98-107); SODIUM 128 MMOL/L (136-145)
--- NOTE | 2019-09-02 07:42 | NUR ---
NURSE NOTES: Patient received from Felix AMEZCUA. Patient sleeping. RR even and unlabored on 2L NC. Side rails upx2, call light within reach, bed low and locked. Will continue to monitor.
--- NOTE | 2019-09-02 07:43 | Nephrology Progress Note ---
Assessment/Plan Assessment/Plan: A/P 1) PNA- levaquin 2) SOB- pleural effusion- s/p 1 L thoracentesis - due to/associated with STAVE 4 ovarian CA -home 02 being arranged 3) HTN- coreg 4) STAGE 4 Ovarian CA- patient to follow up Onc for chemo 5) Hyponatremia- lasix - SIADH from underlying malignancy - po fluid restrict 1 L day Subjective Date patient seen: Sep 02, 2019 Time patient seen: 07:38 ROS Limited/Unobtainable: No Allergies: Coded Allergies: No Known Allergies (Unverified , 06/30/19) Subjective Pending DC post home 02 set up Objective Last 24 Hour Vital Signs Date Time Temp Pulse Resp B/P (MAP) Pulse Ox O2 Delivery O2 Flow Rate FiO2 09/02/19 04:00 98.4 100 16 150/89 (109) 98 09/02/19 04:00 97 09/02/19 00:00 98.0 106 18 131/89 (103) 97 09/02/19 00:00 96 09/01/19 22:00 113 139/83 (101) 09/01/19 21:00 Nasal Cannula 2.0 09/01/19 20:00 123 09/01/19 20:00 97.9 121 16 153/103 (120) 97 09/01/19 16:00 98.1 105 20 150/90 (110) 95 09/01/19 16:00 73 09/01/19 12:00 97.5 105 20 132/86 (101) 95 09/01/19 12:00 103 09/01/19 10:42 Nasal Cannula 2.0 09/01/19 08:00 97.9 110 20 148/94 (112) 96 09/01/19 08:00 107 Intake and Output 09/01/19 09/02/19 19:00 07:00 Intake Total 780 ml Balance 780 ml Intake Oral 780 ml # Voids 2 3 # Bowel Movements 1 Laboratory Tests 09/01/19 14:06: CA 125 Antigen [Pending] 09/02/19 06:15: White Blood Count 15.3H, Red Blood Count 5.01, Hemoglobin 13.2, Hematocrit 40.4 , Mean Corpuscular Volume 81, Mean Corpuscular Hemoglobin 26.4L, Mean Corpuscular Hemoglobin Concent 32.7, Red Cell Distribution Width 14.0, Platelet Count 635H, Mean Platelet Volume 5.6L, Neutrophils (%) (Auto) 67.2, Lymphocytes (%) (Auto) 18.8L, Monocytes (%) (Auto) 11.9H, Eosinophils (%) (Auto) 0.4, Basophils (%) (Auto) 1.8, Sodium Level 128L, Potassium Level 5.0, Chloride Level 91L, Carbon Dioxide Level 31, Anion Gap 6, Blood Urea Nitrogen 22H, Creatinine 1.0, Estimat Glomerular Filtration Rate , Glucose Level 101, Calcium Level 9.2 Height (Feet): 5 Height (Inches): 6.00 Weight (Pounds): 175 General Appearance: no apparent distress, alert EENT: normal ENT inspection Neck: normal alignment, supple Cardiovascular: normal rate, regular rhythm Respiratory/Chest: lungs clear, normal breath sounds Abdomen: non tender, soft Edema: no edema noted Arm (L), no edema noted Arm (R), no edema noted Leg (L), no edema noted Leg (R), no edema noted Pedal (L), no edema noted Pedal (R), no edema noted Generalized Ty Schaefer MD Sep 02, 2019 07:43
--- NOTE | 2019-09-02 07:44 | NUR ---
HAND-OFF: Report given to Vanessa AMEZCUA.
--- NOTE | 2019-09-02 07:44 | Discharge Instructions ---
Discharge Instructions Discharge Instructions Services at Discharge: day care Diet: 2 GM sodium (low sodium) Resume Normal Activity?: Yes Activity: light activity Follow Up Orders Follow up Oncology 1 week PO fluid restrict 1.2 L day For Congestive Heart Failure Reminder Report to your physician any weight gain of 5 pounds or more in one week. Ty Schaefer MD Sep 02, 2019 07:44
--- NOTE | 2019-09-02 09:07 | General Progress Note ---
Assessment/Plan Problem List: (1) Pneumonia involving right lung ICD Codes: J18.9 - Pneumonia, unspecified organism SNOMED: 691935859 (2) Respiratory distress ICD Codes: R06.03 - Acute respiratory distress SNOMED: 673886555 (3) Leukocytosis ICD Codes: D72.829 - Elevated white blood cell count, unspecified SNOMED: 153530861, 676817239 (4) Ovarian cancer ICD Codes: C56.9 - Malignant neoplasm of unspecified ovary SNOMED: 400927707 (5) Dyspnea ICD Codes: R06.00 - Dyspnea, unspecified SNOMED: 500209687 (6) Pleural effusion ICD Codes: J90 - Pleural effusion, not elsewhere classified SNOMED: 63548226 Status: unchanged Assessment/Plan: o2 pulm tx abx cbc bmp am dc plan w hh Subjective Constitutional: Reports: weakness Allergies: Coded Allergies: No Known Allergies (Unverified , 06/30/19) All Systems: reviewed and negative except above Subjective o2nc calm Objective Last 24 Hour Vital Signs Date Time Temp Pulse Resp B/P (MAP) Pulse Ox O2 Delivery O2 Flow Rate FiO2 09/02/19 08:19 Nasal Cannula 2.0 09/02/19 08:00 98.7 95 18 161/83 (109) 98 09/02/19 04:00 98.4 100 16 150/89 (109) 98 09/02/19 04:00 97 09/02/19 00:00 98.0 106 18 131/89 (103) 97 09/02/19 00:00 96 09/01/19 22:00 113 139/83 (101) 09/01/19 21:00 Nasal Cannula 2.0 09/01/19 20:00 123 09/01/19 20:00 97.9 121 16 153/103 (120) 97 09/01/19 16:00 98.1 105 20 150/90 (110) 95 09/01/19 16:00 73 09/01/19 12:00 97.5 105 20 132/86 (101) 95 09/01/19 12:00 103 09/01/19 10:42 Nasal Cannula 2.0 Intake and Output 09/01/19 09/02/19 19:00 07:00 Intake Total 780 ml Balance 780 ml Intake Oral 780 ml # Voids 2 3 # Bowel Movements 1 Laboratory Tests 09/01/19 14:06: CA 125 Antigen [Pending] 09/02/19 06:15: White Blood Count 15.3H, Red Blood Count 5.01, Hemoglobin 13.2, Hematocrit 40.4 , Mean Corpuscular Volume 81, Mean Corpuscular Hemoglobin 26.4L, Mean Corpuscular Hemoglobin Concent 32.7, Red Cell Distribution Width 14.0, Platelet Count 635H, Mean Platelet Volume 5.6L, Neutrophils (%) (Auto) 67.2, Lymphocytes (%) (Auto) 18.8L, Monocytes (%) (Auto) 11.9H, Eosinophils (%) (Auto) 0.4, Basophils (%) (Auto) 1.8, Sodium Level 128L, Potassium Level 5.0, Chloride Level 91L, Carbon Dioxide Level 31, Anion Gap 6, Blood Urea Nitrogen 22H, Creatinine 1.0, Estimat Glomerular Filtration Rate , Glucose Level 101, Calcium Level 9.2 Height (Feet): 5 Height (Inches): 6.00 Weight (Pounds): 175 General Appearance: lethargic EENT: normal ENT inspection Neck: normal alignment Cardiovascular: normal peripheral pulses, normal rate, regular rhythm Respiratory/Chest: chest wall non-tender, lungs clear, normal breath sounds Abdomen: normal bowel sounds, non tender, soft Extremities: normal inspection Edema: no edema noted Arm (L), no edema noted Arm (R), no edema noted Leg (L), no edema noted Leg (R), no edema noted Pedal (L), no edema noted Pedal (R), no edema noted Generalized Neurologic: motor weakness Skin: normal pigmentation, warm/dry Dat Perez DO Sep 02, 2019 09:07
--- NOTE | 2019-09-02 09:26 | NUR ---
DISCHARGE PLANNING: PATIENT WAS REFERRED TO [place] [id number] T:[phone] WAITING FOR RESPONSE Addendum: 09/02/19 at 0928 by JAX HOLLEY LVN UNABLE TO ACCEPT D/T INSURANCE
--- NOTE | 2019-09-02 09:28 | NUR ---
DISCHARGE PLANNING: ASK NURSE TO OBTAIN PRESCRIPTION FOR HOME [address] [facility] [address] HUDSON AND DR. RUSHING WILL F/U
[2019-09-02] MEDS: Docusate 100mg cap ORAL SCH ×2 (09:49→21:46)
[2019-09-02] MEDS: Levofloxacin 500mg tab ORAL SCH (09:50)
--- NOTE | 2019-09-02 11:17 | NUR ---
P.T Note: P.T evaluation completed and tx initiated. Please refer to P.T evaluation for current functional status. . Pt currently is independent with Bed mobility, SBA/CGA X 1 for transfer activities. Pt was was only able to take 5 steps using her straight cane with CGA/SBA x 1. Pt is mostly limited by generalized weakness , fatigue and SOB with minimal exertion. O2 sat 86-89% with activities at room air and 95-96% at 2 l/min of O2 via NC post activities. Anticipated DC to home today. Discussed with pt the benefit of rollator walker with seat to maximize activity tolerance at home. Also recommend home P.T. to increase strength and activity tolerance.
--- NOTE | 2019-09-02 11:20 | Pulmonology Progress Note ---
Assessment/Plan Assessment/Plan IMPRESSION: 1. Right pleural effusion likely secondary to ovarian carcinoma. 2. Leukocytosis. 3. Thrombocytosis. 4. Chronic obstructive pulmonary disease. DISCUSSION: Agree with present management and care. The patient has been seen by Hematology/Oncology. Outpatient chemotherapy has been advocated. At this point, the patient is comfortable and likely we will discharge home with outpatient follow up with Oncology. Hold off on further thoracentesis. Sina Metcalf M.D. Subjective Interval Events: Feeling better Constitutional: Reports: no symptoms Respiratory: Reports: shortness of breath Cardiovascular: Reports: no symptoms Gastrointestinal/Abdominal: Reports: no symptoms Allergies: Coded Allergies: No Known Allergies (Unverified , 06/30/19) Objective Last 24 Hour Vital Signs Date Time Temp Pulse Resp B/P (MAP) Pulse Ox O2 Delivery O2 Flow Rate FiO2 09/02/19 08:19 Nasal Cannula 2.0 09/02/19 08:05 97.2 99 19 136/86 (103) 99 99 09/02/19 08:00 105 09/02/19 08:00 98.7 95 18 161/83 (109) 98 09/02/19 04:00 98.4 100 16 150/89 (109) 98 09/02/19 04:00 97 09/02/19 00:00 98.0 106 18 131/89 (103) 97 09/02/19 00:00 96 09/01/19 22:00 113 139/83 (101) 09/01/19 21:00 Nasal Cannula 2.0 09/01/19 20:00 123 09/01/19 20:00 97.9 121 16 153/103 (120) 97 09/01/19 16:00 98.1 105 20 150/90 (110) 95 09/01/19 16:00 73 09/01/19 12:00 97.5 105 20 132/86 (101) 95 09/01/19 12:00 103 Intake and Output 09/01/19 09/02/19 19:00 07:00 Intake Total 780 ml Balance 780 ml Intake Oral 780 ml # Voids 2 3 # Bowel Movements 1 General Appearance: no acute distress HEENT: normocephalic Respiratory/Chest: chest wall non-tender, decreased breath sounds Cardiovascular: normal peripheral pulses Abdomen: normal bowel sounds Microbiology Date/Time Source Procedure Growth Status 08/31/19 15:21 Blood Blood Culture - Preliminary NO GROWTH AFTER 24 HOURS Resulted 08/31/19 14:06 Blood Blood Culture - Preliminary NO GROWTH AFTER 24 HOURS Resulted 08/31/19 21:00 Rectum Received Laboratory Tests 09/01/19 14:06: CA 125 Antigen 4901.0H 09/02/19 06:15: White Blood Count 15.3H, Red Blood Count 5.01, Hemoglobin 13.2, Hematocrit 40.4 , Mean Corpuscular Volume 81, Mean Corpuscular Hemoglobin 26.4L, Mean Corpuscular Hemoglobin Concent 32.7, Red Cell Distribution Width 14.0, Platelet Count 635H, Mean Platelet Volume 5.6L, Neutrophils (%) (Auto) 67.2, Lymphocytes (%) (Auto) 18.8L, Monocytes (%) (Auto) 11.9H, Eosinophils (%) (Auto) 0.4, Basophils (%) (Auto) 1.8, Sodium Level 128L, Potassium Level 5.0, Chloride Level 91L, Carbon Dioxide Level 31, Anion Gap 6, Blood Urea Nitrogen 22H, Creatinine 1.0, Estimat Glomerular Filtration Rate , Glucose Level 101, Calcium Level 9.2 Current Medications Medications (Trade) Dose Ordered Sig/Tiffani Route PRN Reason Start Time Stop Time Status Last Admin Dose Admin Acetaminophen (Tylenol) 650 mg Q4H PRN ORAL Mild Pain (Pain Scale 1-3) 08/31/19 16:00 09/30/19 15:59 Albuterol/ Ipratropium (Albuterol/ Ipratropium) 3 ml Q6H PRN HHN Shortness of Breath 08/31/19 16:00 09/05/19 15:59 Dextrose (Dextrose 50%) 25 ml Q30M PRN IV Hypoglycemia 08/31/19 16:00 09/30/19 15:59 Dextrose (Dextrose 50%) 50 ml Q30M PRN IV Hypoglycemia 08/31/19 16:00 09/30/19 15:59 Docusate Sodium (Colace) 100 mg EVERY 12 HOURS ORAL 08/31/19 21:00 09/30/19 20:59 09/02/19 09:49 Famotidine (Pepcid) 10 mg DAILY ORAL 09/01/19 09:00 10/01/19 08:59 09/02/19 09:50 Furosemide (Lasix) 40 mg DAILY IV 09/01/19 09:00 10/01/19 08:59 09/01/19 09:27 Levofloxacin (Levaquin) 500 mg DAILY ORAL 08/31/19 18:00 09/07/19 17:59 09/02/19 09:50 Ondansetron HCl (Zofran) 4 mg Q6H PRN IVP Nausea & Vomiting 08/31/19 16:00 09/30/19 15:59 09/01/19 19:50 Sina Metcalf MD Sep 02, 2019 11:20
--- NOTE | 2019-09-02 11:56 | NUR ---
RD ASSESSMENT & RECOMMENDATIONS SEE CARE ACTIVITY FOR COMPLETE ASSESSMENT DAILY ESTIMATED NEEDS: Needs based on Ca, pulmonary 63.9kg abw 25-35 kcals/kg 4593-2395 total kcals 1-2 g protein/kg 64-128 g total protein Fluid per MD, on lasix, low Na NUTRITION DIAGNOSIS: Increased kcal and pro needs r/t cancer as evidenced pt w/ stage 4 ovarian ca, elev Ca 125 (4901), poor po intake. CURRENT DIET: LOW NA DIET PO DIET RECOMMENDATIONS: W/ poor po intake-> regular liberalized diet ADDITIONAL RECOMMENDATIONS: 1) Consider fluid restriction w/ low Na (128) 2) Maintain calibrated bed scale wts 3) Ensure Enlive TID w/ meals + snacks in b/w meals
--- NOTE | 2019-09-02 12:22 | NUR ---
DISCHARGE PLANNING: PATIENT WILL REESTABLISH SERVICES WITH PREVIOUS HOME HEALTH: [facility] T:[phone] CM WILL NOTIFY COMPANY ONCE PATIENT IS DISCHARGED CONFIRMED REESTABLISHMENT BY [facility]
--- NOTE | 2019-09-02 12:24 | NUR ---
DISCHARGE PLANNING HOME OXYGEN ORDER SENT OUT WAITING FOR ACCEPTANCE FROM [facility] T:[phone]
[2019-09-02] MEDS ORDERED: Pneumococcal Vaccine 25mcg/0.5ml IM ONE (15:00)
--- NOTE | 2019-09-02 17:53 | NUR ---
DISCHARGE PLANNING: PATIENT IS TO DISCHARGE WITH HOME O2 [facility] TO AUTHORIZE (T:[phone]) ORDER WILL BE FILLED BY [facility] (T: [phone] OR [phone]) NURSES PLEASE CALL TO CHECK STATUS PATIENT WILL REESTABLISH SERVICES WITH PREVIOUS HOME HEALTH: [facility] T:[phone] NURSES PLEASE NOTIFY [employer] ONCE PATIENT IS DISCHARGED
--- NOTE | 2019-09-02 19:47 | NUR ---
HAND-OFF: Report given to Francie VILLA.Patient stable. Plan of care endorsed.
--- NOTE | 2019-09-02 20:00 | NUR ---
NURSE NOTES: RECEIVED PATIENT LYING IN BED, AWAKE, ALERT/ORIENTED X3, VERBALLY RESPONSIVE, DENIES PAIN, NOTED WITH SHORTNESS OF BREATH ON EXERTION, DENIES CHEST PAIN, NO PERIPHERAL EDEMA NOTED, SINUS TACHY ON JUNIOR QA ANALYST. IV INTACT TO LEFT AC/GAUGE 20, NO REDNESS/SWELLING NOTED. NO COMPLAINTS OF GI DISCOMFORT, NO N/V, BEDSIDE COMMODE AT BEDSIDE, DENIES N/V/DIARRHEA. SIDE RAILS UP X2 FOR MOBILITY, BED IN LOWEST POSITION FOR SAFETY, ENCOURAGED PATIENT TO UTILIZE CALL LIGHT FOR ASSISTANCE, VERBALIZED UNDERSTANDING. DISCHARGE PLAN 09/03/19. NAD.
[2019-09-03] VITALS: BP 161/92
[2019-09-03 04:00] VITALS: BP 126/76
--- NOTE | 2019-09-03 06:23 | NUR ---
NURSE NOTES: RESTED WELL, NO SIGNIFICANT CHANGE OF CONDITION NOTED THROUGHOUT THE NIGHT,. SAFETY MAINTAINED. NAD.
--- NOTE | 2019-09-03 07:07 | NUR ---
HAND-OFF: Report given to GOLDIE BRAXTON.
[2019-09-03 07:23] LABS: EOSINOPHILS % (AUTO) 0.6 % (0.0-3.0); HEMATOCRIT 40.1 % (37.0-47.0); LYMPHOCYTES % (AUTO) 14.9 % (20.0-45.0); MEAN CORPUSCULAR VOLUME 80 FL (80-99); MONOCYTES % (AUTO) 11.4 % (1.0-10.0); NEUTROPHILS % (AUTO) 72.2 % (45.0-75.0); PLATELET COUNT 691 K/UL (150-450); RED CELL DISTRIBUTION WIDTH 14.1 % (11.6-14.8); WHITE BLOOD COUNT 16.3 K/UL (4.8-10.8)
[2019-09-03 07:24] LABS: ANION GAP 7 mmol/L (5-15); BLOOD UREA NITROGEN 20 mg/dL (7-18); CARBON DIOXIDE 30 MMOL/L (21-32); CHLORIDE 91 MMOL/L (98-107); POTASSIUM 4.7 MMOL/L (3.5-5.1); SODIUM 128 MMOL/L (136-145)
--- NOTE | 2019-09-03 07:46 | NUR ---
NURSE NOTES: Patient received from Tania VILLA. Patient SOB after using BSC but RR became even and unlabored on 2L NC after rest. Side rails upx2, call light within reach, bed low and locked. Will continue to monitor.
[2019-09-03 08:00] VITALS: BP 156/85
--- NOTE | 2019-09-03 08:43 | NUR ---
NURSE NOTES: [facility] called regarding O2. Per dispatcher, [facility]ist will call me back.
[2019-09-03] MEDS: Levofloxacin 500mg tab ORAL SCH (08:53)
[2019-09-03] MEDS: Docusate 100mg cap ORAL SCH ×2 (08:53→20:38)
--- NOTE | 2019-09-03 09:06 | General Progress Note ---
Assessment/Plan Problem List: (1) Pneumonia involving right lung ICD Codes: J18.9 - Pneumonia, unspecified organism SNOMED: 542282272 (2) Respiratory distress ICD Codes: R06.03 - Acute respiratory distress SNOMED: 995636634 (3) Leukocytosis ICD Codes: D72.829 - Elevated white blood cell count, unspecified SNOMED: 103881233, 720302546 (4) Ovarian cancer ICD Codes: C56.9 - Malignant neoplasm of unspecified ovary SNOMED: 308054617 (5) Dyspnea ICD Codes: R06.00 - Dyspnea, unspecified SNOMED: 264299557 (6) Pleural effusion ICD Codes: J90 - Pleural effusion, not elsewhere classified SNOMED: 55031824 Status: unchanged Assessment/Plan: o2 pulm tx abx cbc bmp am dc plan w hh Subjective Constitutional: Reports: weakness Allergies: Coded Allergies: No Known Allergies (Unverified , 06/30/19) All Systems: reviewed and negative except above Subjective o2nc calm Objective Last 24 Hour Vital Signs Date Time Temp Pulse Resp B/P (MAP) Pulse Ox O2 Delivery O2 Flow Rate FiO2 09/03/19 08:07 Nasal Cannula 2.0 09/03/19 04:00 72 09/03/19 04:00 97.8 102 18 126/76 (93) 97 09/03/19 00:00 98.0 101 16 161/92 (115) 95 09/03/19 00:00 95 09/02/19 21:00 Nasal Cannula 2.0 09/02/19 20:00 108 09/02/19 20:00 98.2 114 16 154/88 (110) 98 09/02/19 16:00 115 09/02/19 16:00 98.2 111 18 146/89 (108) 95 95 09/02/19 12:00 102 09/02/19 12:00 97.6 84 18 130/82 (98) 96 96 Intake and Output 09/02/19 09/03/19 19:00 07:00 Intake Total 580 ml 360 ml Balance 580 ml 360 ml Intake Oral 360 ml Other 580 ml # Voids 2 Laboratory Tests 09/03/19 05:28: White Blood Count 16.3H, Red Blood Count 5.00, Hemoglobin 13.0, Hematocrit 40.1 , Mean Corpuscular Volume 80, Mean Corpuscular Hemoglobin 26.1L, Mean Corpuscular Hemoglobin Concent 32.5, Red Cell Distribution Width 14.1, Platelet Count 691H, Mean Platelet Volume 5.1L, Neutrophils (%) (Auto) 72.2, Lymphocytes (%) (Auto) 14.9L, Monocytes (%) (Auto) 11.4H, Eosinophils (%) (Auto) 0.6, Basophils (%) (Auto) 1.0, Sodium Level 128L, Potassium Level 4.7, Chloride Level 91L, Carbon Dioxide Level 30, Anion Gap 7, Blood Urea Nitrogen 20H, Creatinine 1.0, Estimat Glomerular Filtration Rate , Glucose Level 89, Calcium Level 9.0 Height (Feet): 5 Height (Inches): 6.00 Weight (Pounds): 175 General Appearance: lethargic EENT: normal ENT inspection Neck: normal alignment Cardiovascular: normal peripheral pulses, normal rate, regular rhythm Respiratory/Chest: chest wall non-tender, lungs clear, normal breath sounds Abdomen: normal bowel sounds, non tender, soft Extremities: normal inspection Edema: no edema noted Arm (L), no edema noted Arm (R), no edema noted Leg (L), no edema noted Leg (R), no edema noted Pedal (L), no edema noted Pedal (R), no edema noted Generalized Neurologic: motor weakness Skin: normal pigmentation, warm/dry Dat Perez DO Sep 03, 2019 09:06
--- NOTE | 2019-09-03 10:21 | Pulmonology Progress Note ---
Assessment/Plan Assessment/Plan IMPRESSION: 1. Right pleural effusion likely secondary to ovarian carcinoma. 2. Leukocytosis. 3. Thrombocytosis. 4. Chronic obstructive pulmonary disease. DISCUSSION: Agree with present management and care. The patient has been seen by Hematology/Oncology. Outpatient chemotherapy has been advocated. At this point, the patient is comfortable and likely we will discharge home with outpatient follow up with Oncology. Hold off on further thoracentesis. May need home O2 Sina Metcalf M.D. Subjective Interval Events: On low flow O2 Constitutional: Reports: no symptoms HEENT: Repors: no symptoms Respiratory: Reports: dry cough Cardiovascular: Reports: no symptoms Gastrointestinal/Abdominal: Reports: no symptoms Allergies: Coded Allergies: No Known Allergies (Unverified , 06/30/19) Objective Last 24 Hour Vital Signs Date Time Temp Pulse Resp B/P (MAP) Pulse Ox O2 Delivery O2 Flow Rate FiO2 09/03/19 08:07 Nasal Cannula 2.0 09/03/19 04:00 72 09/03/19 04:00 97.8 102 18 126/76 (93) 97 09/03/19 00:00 98.0 101 16 161/92 (115) 95 09/03/19 00:00 95 09/02/19 21:00 Nasal Cannula 2.0 09/02/19 20:00 108 09/02/19 20:00 98.2 114 16 154/88 (110) 98 09/02/19 16:00 115 09/02/19 16:00 98.2 111 18 146/89 (108) 95 95 09/02/19 12:00 102 09/02/19 12:00 97.6 84 18 130/82 (98) 96 96 Intake and Output 09/02/19 09/03/19 19:00 07:00 Intake Total 580 ml 360 ml Balance 580 ml 360 ml Intake Oral 360 ml Other 580 ml # Voids 2 General Appearance: no acute distress HEENT: normocephalic Respiratory/Chest: chest wall non-tender, decreased breath sounds Cardiovascular: normal peripheral pulses Abdomen: normal bowel sounds Microbiology Date/Time Source Procedure Growth Status 08/31/19 15:21 Blood Blood Culture - Preliminary NO GROWTH AFTER 48 HOURS Resulted 08/31/19 14:06 Blood Blood Culture - Preliminary NO GROWTH AFTER 48 HOURS Resulted 08/31/19 21:00 Nasal Nares MRSA Culture - Final NO METHICILLIN RESISTANT STAPH AUREUS... Complete 08/31/19 21:00 Rectum - Final NO CARBAPENEM-RESISTANT ENTEROBACTERI... 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 - Vre Complete Laboratory Tests 09/03/19 05:28: White Blood Count 16.3H, Red Blood Count 5.00, Hemoglobin 13.0, Hematocrit 40.1 , Mean Corpuscular Volume 80, Mean Corpuscular Hemoglobin 26.1L, Mean Corpuscular Hemoglobin Concent 32.5, Red Cell Distribution Width 14.1, Platelet Count 691H, Mean Platelet Volume 5.1L, Neutrophils (%) (Auto) 72.2, Lymphocytes (%) (Auto) 14.9L, Monocytes (%) (Auto) 11.4H, Eosinophils (%) (Auto) 0.6, Basophils (%) (Auto) 1.0, Sodium Level 128L, Potassium Level 4.7, Chloride Level 91L, Carbon Dioxide Level 30, Anion Gap 7, Blood Urea Nitrogen 20H, Creatinine 1.0, Estimat Glomerular Filtration Rate , Glucose Level 89, Calcium Level 9.0 Current Medications Medications (Trade) Dose Ordered Sig/Tiffani Route PRN Reason Start Time Stop Time Status Last Admin Dose Admin Acetaminophen (Tylenol) 650 mg Q4H PRN ORAL Mild Pain (Pain Scale 1-3) 08/31/19 16:00 09/30/19 15:59 Albuterol/ Ipratropium (Albuterol/ Ipratropium) 3 ml Q6H PRN HHN Shortness of Breath 08/31/19 16:00 09/05/19 15:59 Dextrose (Dextrose 50%) 25 ml Q30M PRN IV Hypoglycemia 08/31/19 16:00 09/30/19 15:59 Dextrose (Dextrose 50%) 50 ml Q30M PRN IV Hypoglycemia 08/31/19 16:00 09/30/19 15:59 Docusate Sodium (Colace) 100 mg EVERY 12 HOURS ORAL 08/31/19 21:00 09/30/19 20:59 09/03/19 08:53 Famotidine (Pepcid) 10 mg DAILY ORAL 09/01/19 09:00 10/01/19 08:59 09/03/19 08:53 Furosemide (Lasix) 40 mg DAILY IV 09/01/19 09:00 10/01/19 08:59 09/01/19 09:27 Levofloxacin (Levaquin) 500 mg DAILY ORAL 08/31/19 18:00 09/07/19 17:59 09/03/19 08:53 Ondansetron HCl (Zofran) 4 mg Q6H PRN IVP Nausea & Vomiting 08/31/19 16:00 09/30/19 15:59 09/01/19 19:50 Sina Metcalf MD Sep 03, 2019 10:21
[2019-09-03 12:00] VITALS: BP 128/68
--- NOTE | 2019-09-03 12:54 | Nephrology Progress Note ---
Assessment/Plan Status: unchanged Assessment/Plan: A/P 1) PNA- levaquin. 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 - po fluid restrict 1 L day Subjective Date patient seen: Sep 03, 2019 Time patient seen: 12:52 ROS Limited/Unobtainable: No Allergies: Coded Allergies: No Known Allergies (Unverified , 06/30/19) Subjective Pending DC post home 02 set up Objective Last 24 Hour Vital Signs Date Time Temp Pulse Resp B/P (MAP) Pulse Ox O2 Delivery O2 Flow Rate FiO2 09/03/19 08:07 Nasal Cannula 2.0 09/03/19 08:00 93 09/03/19 08:00 97.7 95 20 156/85 (108) 98 09/03/19 04:00 72 09/03/19 04:00 97.8 102 18 126/76 (93) 97 09/03/19 00:00 98.0 101 16 161/92 (115) 95 09/03/19 00:00 95 09/02/19 21:00 Nasal Cannula 2.0 09/02/19 20:00 108 09/02/19 20:00 98.2 114 16 154/88 (110) 98 09/02/19 16:00 115 09/02/19 16:00 98.2 111 18 146/89 (108) 95 95 Intake and Output 09/02/19 09/03/19 19:00 07:00 Intake Total 580 ml 360 ml Balance 580 ml 360 ml Intake Oral 360 ml Other 580 ml # Voids 2 Laboratory Tests 09/03/19 05:28: White Blood Count 16.3H, Red Blood Count 5.00, Hemoglobin 13.0, Hematocrit 40.1 , Mean Corpuscular Volume 80, Mean Corpuscular Hemoglobin 26.1L, Mean Corpuscular Hemoglobin Concent 32.5, Red Cell Distribution Width 14.1, Platelet Count 691H, Mean Platelet Volume 5.1L, Neutrophils (%) (Auto) 72.2, Lymphocytes (%) (Auto) 14.9L, Monocytes (%) (Auto) 11.4H, Eosinophils (%) (Auto) 0.6, Basophils (%) (Auto) 1.0, Sodium Level 128L, Potassium Level 4.7, Chloride Level 91L, Carbon Dioxide Level 30, Anion Gap 7, Blood Urea Nitrogen 20H, Creatinine 1.0, Estimat Glomerular Filtration Rate , Glucose Level 89, Calcium Level 9.0 Height (Feet): 5 Height (Inches): 6.00 Weight (Pounds): 175 General Appearance: no apparent distress EENT: normal ENT inspection Neck: normal alignment, supple Cardiovascular: normal rate, regular rhythm Respiratory/Chest: rhonchi - bilaterally Abdomen: non tender, soft Edema: no edema noted Arm (L), no edema noted Arm (R), no edema noted Leg (L), no edema noted Leg (R), no edema noted Pedal (L), no edema noted Pedal (R), no edema noted Generalized Ty Schaefer MD Sep 03, 2019 12:54
[2019-09-03 16:00] VITALS: BP 123/78
--- NOTE | 2019-09-03 17:58 | Infectious Diseases Prog Note ---
Assessment/Plan Assessment/Plan Full consult dictated: A) 1) ? pna, ? uti, ? sepsis, leukocytosis 2) ovarian CA 3) allergies - nkda P) 1) ceftriaxone, flagyl, doxycycline 2) check cultures, labs, serology, chest x-ray 3) thank you Subjective Allergies: Coded Allergies: No Known Allergies (Unverified , 06/30/19) Objective Vital Signs Last 24 Hour Vital Signs Date Time Temp Pulse Resp B/P (MAP) Pulse Ox O2 Delivery O2 Flow Rate FiO2 09/03/19 12:00 97.7 107 20 128/68 (88) 98 09/03/19 12:00 108 09/03/19 08:07 Nasal Cannula 2.0 09/03/19 08:00 93 09/03/19 08:00 97.7 95 20 156/85 (108) 98 09/03/19 04:00 72 09/03/19 04:00 97.8 102 18 126/76 (93) 97 09/03/19 00:00 98.0 101 16 161/92 (115) 95 09/03/19 00:00 95 09/02/19 21:00 Nasal Cannula 2.0 09/02/19 20:00 108 09/02/19 20:00 98.2 114 16 154/88 (110) 98 Height (Feet): 5 Height (Inches): 6.00 Weight (Pounds): 175 Microbiology Date/Time Source Procedure Growth Status 08/31/19 21:00 Nasal Nares MRSA Culture - Final NO METHICILLIN RESISTANT STAPH AUREUS... Complete 08/31/19 21:00 Rectum - Final NO CARBAPENEM-RESISTANT ENTEROBACTERI... 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 - Vre Complete Laboratory Tests Test 09/03/19 05:28 White Blood Count 16.3 K/UL (4.8-10.8) H Red Blood Count 5.00 M/UL (4.20-5.40) Hemoglobin 13.0 G/DL (12.0-16.0) Hematocrit 40.1 % (37.0-47.0) Mean Corpuscular Volume 80 FL (80-99) Mean Corpuscular Hemoglobin 26.1 PG (27.0-31.0) L Mean Corpuscular Hemoglobin Concent 32.5 G/DL (32.0-36.0) Red Cell Distribution Width 14.1 % (11.6-14.8) Platelet Count 691 K/UL (150-450) H Mean Platelet Volume 5.1 FL (6.5-10.1) L Neutrophils (%) (Auto) 72.2 % (45.0-75.0) Lymphocytes (%) (Auto) 14.9 % (20.0-45.0) L Monocytes (%) (Auto) 11.4 % (1.0-10.0) H Eosinophils (%) (Auto) 0.6 % (0.0-3.0) Basophils (%) (Auto) 1.0 % (0.0-2.0) Sodium Level 128 MMOL/L (136-145) L Potassium Level 4.7 MMOL/L (3.5-5.1) Chloride Level 91 MMOL/L (98-107) L Carbon Dioxide Level 30 MMOL/L (21-32) Anion Gap 7 mmol/L (5-15) Blood Urea Nitrogen 20 mg/dL (7-18) H Creatinine 1.0 MG/DL (0.55-1.30) Estimat Glomerular Filtration Rate mL/min (>60) Glucose Level 89 MG/DL (74-106) Calcium Level 9.0 MG/DL (8.5-10.1) Current Medications Medications (Trade) Dose Ordered Sig/Tiffani Route PRN Reason Start Time Stop Time Status Last Admin Dose Admin Acetaminophen (Tylenol) 650 mg Q4H PRN ORAL Mild Pain (Pain Scale 1-3) 08/31/19 16:00 09/30/19 15:59 Albuterol/ Ipratropium (Albuterol/ Ipratropium) 3 ml Q6H PRN HHN Shortness of Breath 08/31/19 16:00 09/05/19 15:59 Ceftriaxone Sodium 1 gm/ Dextrose 50 ml @ 100 mls/hr Q24H IVPB 09/03/19 20:00 09/10/19 19:59 Dextrose (Dextrose 50%) 25 ml Q30M PRN IV Hypoglycemia 08/31/19 16:00 09/30/19 15:59 Dextrose (Dextrose 50%) 50 ml Q30M PRN IV Hypoglycemia 08/31/19 16:00 09/30/19 15:59 Docusate Sodium (Colace) 100 mg EVERY 12 HOURS ORAL 08/31/19 21:00 09/30/19 20:59 09/03/19 08:53 Famotidine (Pepcid) 10 mg DAILY ORAL 09/01/19 09:00 10/01/19 08:59 09/03/19 08:53 Furosemide (Lasix) 40 mg DAILY IV 09/01/19 09:00 10/01/19 08:59 09/01/19 09:27 Metronidazole 100 ml @ 100 mls/hr Q8HR IVPB 09/03/19 22:00 09/10/19 21:59 Ondansetron HCl (Zofran) 4 mg Q6H PRN IVP Nausea & Vomiting 08/31/19 16:00 09/30/19 15:59 09/01/19 19:50 Tom Momin MD Sep 03, 2019 17:58
--- NOTE | 2019-09-03 19:20 | NUR ---
HAND-OFF: Report given to Tania VILLA. Patient stable. Endorsed plan of care.
[2019-09-03] MEDS ORDERED: LORazepam Inj 2mg/ml 1ml IV PRN (19:30)
--- NOTE | 2019-09-03 19:40 | NUR ---
NURSE NOTES: Received patient from Alda VILLA, patient in bed, on 2L NC, no signs of respiratory distress. Denies pain, nausea. Bed in low position, locked, call light within reach.
[2019-09-03 20:00] VITALS: BP 155/92
[2019-09-03] MEDS: cefTRIAXone 1 GM in D5W 50 ML IVPB SCH (20:38)
[2019-09-04] VITALS: BP 155/87
--- NOTE | 2019-09-04 02:00 | Consultation ---
DATE OF CONSULTATION: 09/03/2019 INFECTIOUS DISEASE CONSULTATION CONSULTING PHYSICIAN: Tom Momin M.D. ATTENDING PHYSICIAN: Ty Schaefer M.D. REFERRING PHYSICIAN: Ty Schaefer M.D. REASON FOR CONSULTATION: Elevated white count, possible sepsis, and possible pneumonia. CHIEF COMPLAINT: The patient's chief complaint coming in to the hospital was metastatic ovarian cancer and dyspnea. HISTORY OF PRESENT ILLNESS: This is a very pleasant 74-year-old female who comes in to [facility] with history of ovarian cancer, stage IV with metastasis and comes in with dyspnea. The patient had a thoracentesis for massive effusion of the right lung. The patient has persistent leukocytosis and does have SIRS criteria with tachycardia, concern the patient could be septic. She had a questionable UTI in the past. She is colonized with VRE and also on chest x-ray, she has possible pneumonia. The patient was placed on Rocephin, Flagyl, and doxycycline empirically. She was on Levaquin. This case was discussed with the patient and the patient's daughter at bedside. REVIEW OF SYSTEMS: CONSTITUTIONAL: She has prior review of systems, main issue is no cough, but dyspnea and shortness of breath. She has no headache. CARDIAC: No chest pain. GASTROINTESTINAL: No nausea or diarrhea. GENITOURINARY: No dysuria or frequency. PULMONARY: Shortness of breath noted. SKIN: No rash. NEUROLOGIC: No seizures. PAST MEDICAL HISTORY: She has a history of metastatic ovarian cancer, hypertension, stage IV ovarian cancer, and hyponatremia. ALLERGIES: No known drug allergies. SOCIAL HISTORY: Negative for smoking, alcohol, or drug use. FAMILY HISTORY: Noncontributory. MEDICATIONS: Noted and reconciliated. Antibiotics placed on Rocephin, doxycycline, and Flagyl. PHYSICAL EXAMINATION: VITAL SIGNS: Pulse rate 108, temperature 97.7 degrees, respiratory rate 20, blood pressure 128/68, saturation 98%, and respiratory rate has been as high as 26. GENERAL: Alert. Shortness of breath noted. HEAD AND NECK: Oral exam, no thrush. Eye exam, no icterus. Normocephalic. HEART: Regular. No gallop or murmur. Tachycardic. ABDOMEN: Soft. Positive bowel sounds. Nontender. LUNGS: Bilateral rhonchi, rales, and crackles. Decreased breath sounds. SKIN: No rash. MUSCULOSKELETAL: No effusion. Legs are without cellulitis. PERIPHERAL VASCULAR: No cyanosis or gangrene. GENITOURINARY: No Wright. LINE SITES: Without phlebitis. NEUROLOGIC: Intact. Nonfocal. Alert and oriented. LABORATORY AND DIAGNOSTIC DATA: White count 16.3 and hemoglobin 13.0. Creatinine 1.0 and sodium 128. CA-125 antigen elevated at 4901. The patient has been cultured. Chest x-ray with right opacification despite high volume thoracentesis, right pleural opacity, and atelectasis as well as infiltrate. Cultures have been ordered. ASSESSMENT AND PLAN: 1. The patient has persistent leukocytosis, SIRS criteria, questionable sepsis and questionable pneumonia. She certainly could have community-acquired pneumonia versus postobstructive pneumonia if she does have a malignancy there. She does not seem to be aspirating. It is unclear if she has ovarian cancer with metastasis to the lung with effusion. Continue Rocephin, doxycycline, and Flagyl to cover for possible sepsis with possible history of UTI and possible pneumonia. Check sputum culture, cultures, lab, and chest x-ray. Consider CT scan of the chest. We will defer to Pulmonary Medicine. Continue antibiotics, Rocephin, doxycycline, and Flagyl pending workup. 2. Ovarian cancer, stage IV ovarian cancer with metastasis. 3. Effusion. 4. Chemotherapy advocated by Hematology/Oncology. 5. Hypertension. 6. Hyponatremia. 7. Blood pressure treatment per primary care team and consultants. 8. VRE colonization. 9. Continue treatment per primary consultants. 10. No known drug allergies. 11. Social history is negative. 12. Family history is noncontributory. 13. Case was discussed with RN. Tom Momin M.D. DR: MICHAEL JOB#: [id number] CC:
[2019-09-04 04:00] VITALS: BP 152/86
--- NOTE | 2019-09-04 07:59 | NUR ---
NURSE NOTES: Patient received from Felix AMEZCUA. Patient stable AOx4, RR even and unlabored on 2L NC after rest. Side rails upx2, call light within reach, bed low and locked. Will continue to monitor.
[2019-09-04 08:00] VITALS: BP 146/84
[2019-09-04 08:03] LABS: BASOPHILS % (AUTO) 1.1 % (0.0-2.0); EOSINOPHILS % (AUTO) 0.8 % (0.0-3.0); HEMATOCRIT 36.8 % (37.0-47.0); HEMOGLOBIN 12.2 G/DL (12.0-16.0); LYMPHOCYTES % (AUTO) 17.3 % (20.0-45.0); MEAN CORPUSCULAR VOLUME 80 FL (80-99); MONOCYTES % (AUTO) 12.7 % (1.0-10.0); PLATELET COUNT 662 K/UL (150-450); RED BLOOD COUNT 4.58 M/UL (4.20-5.40); WHITE BLOOD COUNT 14.4 K/UL (4.8-10.8)
--- NOTE | 2019-09-04 08:17 | General Progress Note ---
Assessment/Plan Problem List: (1) Pneumonia involving right lung ICD Codes: J18.9 - Pneumonia, unspecified organism SNOMED: 747080225 (2) Respiratory distress ICD Codes: R06.03 - Acute respiratory distress SNOMED: 620564382 (3) Leukocytosis ICD Codes: D72.829 - Elevated white blood cell count, unspecified SNOMED: 260589881, 343493949 (4) Ovarian cancer ICD Codes: C56.9 - Malignant neoplasm of unspecified ovary SNOMED: 161946771 (5) Dyspnea ICD Codes: R06.00 - Dyspnea, unspecified SNOMED: 759556166 (6) Pleural effusion ICD Codes: J90 - Pleural effusion, not elsewhere classified SNOMED: 55881053 Status: unchanged Assessment/Plan: o2 pulm tx abx cbc bmp am dc plan w hh Subjective Constitutional: Reports: weakness Respiratory: Reports: shortness of breath Allergies: Coded Allergies: No Known Allergies (Unverified , 06/30/19) All Systems: reviewed and negative except above Subjective o2nc calm Objective Last 24 Hour Vital Signs Date Time Temp Pulse Resp B/P (MAP) Pulse Ox O2 Delivery O2 Flow Rate FiO2 09/04/19 04:00 96.1 96 24 152/86 (108) 95 09/04/19 04:00 101 09/04/19 00:00 97.2 108 20 155/87 (109) 96 09/04/19 00:00 102 09/03/19 21:00 Nasal Cannula 2.0 09/03/19 20:00 111 09/03/19 20:00 97.9 110 16 155/92 (113) 98 09/03/19 16:00 97.7 107 20 123/78 (93) 97 09/03/19 16:00 118 09/03/19 12:00 97.7 107 20 128/68 (88) 98 09/03/19 12:00 108 Intake and Output 09/03/19 09/04/19 19:00 07:00 # Voids 2 2 Laboratory Tests 09/03/19 18:30: Mycoplasma pneumoniae IgG Antibody [Pending], Mycoplasma pneumoniae IgM Ab Titer [Pending] 09/04/19 06:05: White Blood Count [Pending], Red Blood Count [Pending], Hemoglobin [Pending], Hematocrit [Pending], Mean Corpuscular Volume [Pending], Mean Corpuscular Hemoglobin [Pending], Mean Corpuscular Hemoglobin Concent [Pending], Red Cell Distribution Width [Pending], Platelet Count [Pending], Mean Platelet Volume [ Pending], Neutrophils (%) (Auto) [Pending], Lymphocytes (%) (Auto) [Pending], Monocytes (%) (Auto) [Pending], Eosinophils (%) (Auto) [Pending], Basophils (%) (Auto) [Pending], Sodium Level [Pending], Potassium Level [Pending], Chloride Level [Pending], Carbon Dioxide Level [Pending], Blood Urea Nitrogen [Pending], Creatinine [Pending], Estimat Glomerular Filtration Rate [Pending], Glucose Level [Pending], Calcium Level [Pending], Total Bilirubin [Pending], Aspartate Amino Transf (AST/SGOT) [Pending], Alanine Aminotransferase (ALT/SGPT) [Pending] , Alkaline Phosphatase [Pending], Total Protein [Pending], Albumin [Pending], Globulin [Pending] Height (Feet): 5 Height (Inches): 6.00 Weight (Pounds): 175 General Appearance: lethargic EENT: normal ENT inspection Neck: normal alignment Cardiovascular: normal peripheral pulses, normal rate, regular rhythm Respiratory/Chest: chest wall non-tender, lungs clear, normal breath sounds Abdomen: normal bowel sounds, non tender, soft Extremities: normal inspection Edema: no edema noted Arm (L), no edema noted Arm (R), no edema noted Leg (L), no edema noted Leg (R), no edema noted Pedal (L), no edema noted Pedal (R), no edema noted Generalized Neurologic: motor weakness Skin: normal pigmentation, warm/dry Dat Perez DO Sep 04, 2019 08:17
[2019-09-04] MEDS: Docusate 100mg cap ORAL SCH ×2 (08:41→20:11)
[2019-09-04 08:49] LABS: ALANINE AMINOTRANSFERASE 21 U/L (12-78); ALBUMIN 2.3 G/DL (3.4-5.0); ALBUMIN/GLOBULIN RATIO 0.5 (1.0-2.7); ALKALINE PHOSPHATASE 92 U/L (46-116); ANION GAP 4 mmol/L (5-15); ASPARTATE AMINO TRANSFERASE 34 U/L (15-37); BILIRUBIN,TOTAL 0.5 MG/DL (0.2-1.0); BLOOD UREA NITROGEN 18 mg/dL (7-18); CALCIUM 8.9 MG/DL (8.5-10.1); CARBON DIOXIDE 32 MMOL/L (21-32); CHLORIDE 92 MMOL/L (98-107); CREATININE 0.8 MG/DL (0.55-1.30); POTASSIUM 4.7 MMOL/L (3.5-5.1); SODIUM 128 MMOL/L (136-145)
--- NOTE | 2019-09-04 09:36 | Diagnostic Imaging Report ---
EXAM: XR Chest, 1 View CLINICAL HISTORY: INFECT TECHNIQUE: Frontal view of the chest. COMPARISON: Chest x-ray 08/31/19 1641 FINDINGS: Lungs: Worsening right lung opacities/airspace disease. Left lung clear. Pleural space: Worsening large right pleural effusion. No pneumothorax. Heart: Unremarkable. No cardiomegaly. Mediastinum: Unremarkable. Bones/joints: Unremarkable. IMPRESSION: 1. Worsening right lung opacities may worsening pleural effusion and/or consolidation/airspace disease.
[2019-09-04 10:38] LABS: APPEARANCE,URINE CLEAR; BILIRUBIN, URINE NEGATIVE (NEGATIVE); COLOR,URINE PALE YELLOW; GLUCOSE, URINE (UA) NEGATIVE (NEGATIVE); KETONES,URINE 1+ (NEGATIVE); LEUKOCYTE ESTERASE ,URINE 1+ (NEGATIVE); NITRITE,URINE NEGATIVE (NEGATIVE); PH,URINE 5 (4.5-8.0); PROTEIN,URINE 1+ (NEGATIVE); UROBILINOGEN,URINE NORMAL MG/DL (0.0-1.0)
--- NOTE | 2019-09-04 11:13 | Pulmonology Progress Note ---
Assessment/Plan Assessment/Plan IMPRESSION: 1. Right pleural effusion likely secondary to ovarian carcinoma. 2. Leukocytosis. 3. Thrombocytosis. 4. Chronic obstructive pulmonary disease. DISCUSSION: Agree with present management and care. The patient has been seen by Hematology/Oncology. Outpatient chemotherapy has been advocated. At this point, the patient is comfortable and likely we will discharge home with outpatient follow up with Oncology. Hold off on further thoracentesis. May need home O2 Sina Metcalf M.D. Subjective Interval Events: None new Constitutional: Reports: no symptoms HEENT: Repors: no symptoms Respiratory: Reports: no symptoms Cardiovascular: Reports: no symptoms Gastrointestinal/Abdominal: Reports: no symptoms Allergies: Coded Allergies: No Known Allergies (Unverified , 06/30/19) Objective Last 24 Hour Vital Signs Date Time Temp Pulse Resp B/P (MAP) Pulse Ox O2 Delivery O2 Flow Rate FiO2 09/04/19 08:00 89 09/04/19 08:00 97.9 93 20 146/84 (104) 98 09/04/19 04:00 96.1 96 24 152/86 (108) 95 09/04/19 04:00 101 09/04/19 00:00 97.2 108 20 155/87 (109) 96 09/04/19 00:00 102 09/03/19 21:00 Nasal Cannula 2.0 09/03/19 20:00 111 09/03/19 20:00 97.9 110 16 155/92 (113) 98 09/03/19 16:00 97.7 107 20 123/78 (93) 97 09/03/19 16:00 118 09/03/19 12:00 97.7 107 20 128/68 (88) 98 09/03/19 12:00 108 Intake and Output 09/03/19 09/04/19 19:00 07:00 # Voids 2 2 General Appearance: no acute distress HEENT: normocephalic Respiratory/Chest: chest wall non-tender, lungs clear Abdomen: normal bowel sounds Laboratory Tests 09/03/19 18:30: Mycoplasma pneumoniae IgG Antibody [Pending], Mycoplasma pneumoniae IgM Ab Titer [Pending] 09/04/19 06:05: White Blood Count 14.4H, Red Blood Count 4.58, Hemoglobin 12.2, Hematocrit 36.8L , Mean Corpuscular Volume 80, Mean Corpuscular Hemoglobin 26.6L, Mean Corpuscular Hemoglobin Concent 33.1, Red Cell Distribution Width 14.0, Platelet Count 662H, Mean Platelet Volume 4.9L, Neutrophils (%) (Auto) 68.0, Lymphocytes (%) (Auto) 17.3L, Monocytes (%) (Auto) 12.7H, Eosinophils (%) (Auto) 0.8, Basophils (%) (Auto) 1.1, Sodium Level 128L, Potassium Level 4.7, Chloride Level 92L, Carbon Dioxide Level 32, Anion Gap 4L, Blood Urea Nitrogen 18, Creatinine 0.8, Estimat Glomerular Filtration Rate , Glucose Level 82, Calcium Level 8.9, Total Bilirubin 0.5, Aspartate Amino Transf (AST/SGOT) 34, Alanine Aminotransferase (ALT/SGPT) 21, Alkaline Phosphatase 92, Total Protein 6.6, Albumin 2.3L, Globulin 4.3, Albumin/Globulin Ratio 0.5L 09/04/19 09:50: Urine Color Pale yellow, Urine Appearance Clear, Urine pH 5, Urine Specific [place] 1.020, Urine Protein 1+H, Urine Glucose (UA) Negative, Urine Ketones 1+H , Urine Blood 2+H, Urine Nitrite Negative, Urine Bilirubin Negative, Urine Urobilinogen Normal, Urine Leukocyte Esterase 1+H, Urine RBC 2-4H, Urine WBC 5- 10H, Urine Squamous Epithelial Cells Few, Urine Bacteria Few, Urine Legionella Antigen [Pending] Current Medications Medications (Trade) Dose Ordered Sig/Tiffani Route PRN Reason Start Time Stop Time Status Last Admin Dose Admin Acetaminophen (Tylenol) 650 mg Q4H PRN ORAL Mild Pain (Pain Scale 1-3) 08/31/19 16:00 09/30/19 15:59 Albuterol/ Ipratropium (Albuterol/ Ipratropium) 3 ml Q6H PRN HHN Shortness of Breath 08/31/19 16:00 09/05/19 15:59 Ceftriaxone Sodium 1 gm/ Dextrose 50 ml @ 100 mls/hr Q24H IVPB 09/03/19 20:00 09/10/19 19:59 09/03/19 20:38 Dextrose (Dextrose 50%) 25 ml Q30M PRN IV Hypoglycemia 08/31/19 16:00 09/30/19 15:59 Dextrose (Dextrose 50%) 50 ml Q30M PRN IV Hypoglycemia 08/31/19 16:00 09/30/19 15:59 Docusate Sodium (Colace) 100 mg EVERY 12 HOURS ORAL 08/31/19 21:00 09/30/19 20:59 09/04/19 08:41 Doxycycline Hyclate 100 mg/ Dextrose 100 ml @ 100 mls/hr Q12HR IV 09/03/19 21:00 09/10/19 20:59 09/04/19 08:41 Famotidine (Pepcid) 10 mg DAILY ORAL 09/01/19 09:00 10/01/19 08:59 09/04/19 08:41 Furosemide (Lasix) 40 mg DAILY IV 09/01/19 09:00 10/01/19 08:59 09/04/19 08:42 Lorazepam (Ativan 2mg/ml 1ml) 1 mg Q6H PRN IV For Anxiety 09/03/19 19:30 09/10/19 19:29 Metronidazole 100 ml @ 100 mls/hr Q8HR IVPB 09/03/19 22:00 09/10/19 21:59 09/04/19 05:18 Ondansetron HCl (Zofran) 4 mg Q6H PRN IVP Nausea & Vomiting 08/31/19 16:00 09/30/19 15:59 09/01/19 19:50 Sina Metcalf MD Sep 04, 2019 11:13
[2019-09-04 12:00] VITALS: BP 143/80
--- NOTE | 2019-09-04 13:34 | Infectious Diseases Prog Note ---
Assessment/Plan Assessment/Plan ASSESSMENT AND PLAN: 1. pneumonia, ? sepsis, leukocytosis, metastatic ovarian ca - rocephin, doxycycline, flagyl - f/u on cultures - d/w Dr. Paris - augmentin wound be a good oral substitute if needed - monitor labs and chest x-ray 2. Ovarian cancer, stage IV ovarian cancer with metastasis. 3. Effusion. 4. Chemotherapy advocated by Hematology/Oncology. 5. Hypertension. 6. Hyponatremia. 7. Blood pressure treatment per primary care team and consultants. 8. VRE colonization. 9. Continue treatment per primary consultants. 10. No known drug allergies. 11. Social history is negative. 12. Family history is noncontributory. 13. Case was discussed with RN. Subjective Constitutional: Reports: fatigue; Denies: fever HEENT: Denies: congestion Respiratory: Reports: shortness of breath - mild Cardiovascular: Denies: chest pain Gastrointestinal/Abdominal: Denies: nausea, vomiting Neurologic: Denies: headache Psychiatric: Denies: depression Skin: Denies: rash Hematologic: Denies: bleeding Musculoskeletal: Denies: pain Allergies: Coded Allergies: No Known Allergies (Unverified , 06/30/19) Objective Vital Signs Last 24 Hour Vital Signs Date Time Temp Pulse Resp B/P (MAP) Pulse Ox O2 Delivery O2 Flow Rate FiO2 09/04/19 12:00 106 09/04/19 12:00 97.8 101 20 143/80 (101) 95 09/04/19 09:00 Nasal Cannula 2.0 09/04/19 08:00 89 09/04/19 08:00 97.9 93 20 146/84 (104) 98 09/04/19 04:00 96.1 96 24 152/86 (108) 95 09/04/19 04:00 101 09/04/19 00:00 97.2 108 20 155/87 (109) 96 09/04/19 00:00 102 09/03/19 21:00 Nasal Cannula 2.0 09/03/19 20:00 111 09/03/19 20:00 97.9 110 16 155/92 (113) 98 09/03/19 16:00 97.7 107 20 123/78 (93) 97 09/03/19 16:00 118 Height (Feet): 5 Height (Inches): 6.00 Weight (Pounds): 175 General Appearance: no acute distress HEENT: normocephalic, atraumatic, anicteric, mucous membranes moist Respiratory/Chest: no respiratory distress, no accessory muscle use, crackles/ rales, rhonchi - bilaterally Cardiovascular: normal rate, regular rhythm, no gallop/murmur Abdomen: normal bowel sounds, soft, non tender, no organomegaly, non distended Genitourinary: other - no cordero Extremities: no cyanosis Skin: no rash Neurologic/Psychiatric: able bodied tankerman II-XII grossly normal, alert, oriented x 3, responsive Lymphatic: no neck adenopathy Musculoskeletal: no effusion Objective Chest x-ray - 09/04/19 - IMPRESSION: 1. Worsening right lung opacities may worsening pleural effusion and/or consolidation/airspace disease. Microbiology Date/Time Source Procedure Growth Status 08/31/19 15:21 Blood Blood Culture - Preliminary NO GROWTH AFTER 72 HOURS Resulted 08/31/19 21:00 Nasal Nares MRSA Culture - Final NO METHICILLIN RESISTANT STAPH AUREUS... Complete 08/31/19 21:00 Rectum - Final NO CARBAPENEM-RESISTANT ENTEROBACTERI... Complete Laboratory Tests Test 09/03/19 18:30 09/04/19 06:05 09/04/19 09:50 Mycoplasma pneumoniae IgG Antibody Pending Mycoplasma pneumoniae IgM Ab Titer Pending White Blood Count 14.4 K/UL (4.8-10.8) H Red Blood Count 4.58 M/UL (4.20-5.40) Hemoglobin 12.2 G/DL (12.0-16.0) Hematocrit 36.8 % (37.0-47.0) L Mean Corpuscular Volume 80 FL (80-99) Mean Corpuscular Hemoglobin 26.6 PG (27.0-31.0) L Mean Corpuscular Hemoglobin Concent 33.1 G/DL (32.0-36.0) Red Cell Distribution Width 14.0 % (11.6-14.8) Platelet Count 662 K/UL (150-450) H Mean Platelet Volume 4.9 FL (6.5-10.1) L Neutrophils (%) (Auto) 68.0 % (45.0-75.0) Lymphocytes (%) (Auto) 17.3 % (20.0-45.0) L Monocytes (%) (Auto) 12.7 % (1.0-10.0) H Eosinophils (%) (Auto) 0.8 % (0.0-3.0) Basophils (%) (Auto) 1.1 % (0.0-2.0) Sodium Level 128 MMOL/L (136-145) L Potassium Level 4.7 MMOL/L (3.5-5.1) Chloride Level 92 MMOL/L (98-107) L Carbon Dioxide Level 32 MMOL/L (21-32) Anion Gap 4 mmol/L (5-15) L Blood Urea Nitrogen 18 mg/dL (7-18) Creatinine 0.8 MG/DL (0.55-1.30) Estimat Glomerular Filtration Rate mL/min (>60) Glucose Level 82 MG/DL (74-106) Calcium Level 8.9 MG/DL (8.5-10.1) Total Bilirubin 0.5 MG/DL (0.2-1.0) Aspartate Amino Transf (AST/SGOT) 34 U/L (15-37) Alanine Aminotransferase (ALT/SGPT) 21 U/L (12-78) Alkaline Phosphatase 92 U/L (46-116) Total Protein 6.6 G/DL (6.4-8.2) Albumin 2.3 G/DL (3.4-5.0) L Globulin 4.3 g/dL Albumin/Globulin Ratio 0.5 (1.0-2.7) L Urine Color Pale yellow Urine Appearance Clear Urine pH 5 (4.5-8.0) Urine Specific [place] 1.020 (1.005-1.035) Urine Protein 1+ (NEGATIVE) H Urine Glucose (UA) Negative (NEGATIVE) Urine Ketones 1+ (NEGATIVE) H Urine Blood 2+ (NEGATIVE) H Urine Nitrite Negative (NEGATIVE) Urine Bilirubin Negative (NEGATIVE) Urine Urobilinogen Normal MG/DL (0.0-1.0) Urine Leukocyte Esterase 1+ (NEGATIVE) H Urine RBC 2-4 /HPF (0 - 2) H Urine WBC 5-10 /HPF (0 - 2) H Urine Squamous Epithelial Cells Few /LPF (NONE/OCC) Urine Bacteria Few /HPF (NONE) Urine Legionella Antigen Pending Current Medications Medications (Trade) Dose Ordered Sig/Tiffani Route PRN Reason Start Time Stop Time Status Last Admin Dose Admin Acetaminophen (Tylenol) 650 mg Q4H PRN ORAL Mild Pain (Pain Scale 1-3) 08/31/19 16:00 09/30/19 15:59 Albuterol/ Ipratropium (Albuterol/ Ipratropium) 3 ml Q6H PRN HHN Shortness of Breath 08/31/19 16:00 09/05/19 15:59 Ceftriaxone Sodium 1 gm/ Dextrose 50 ml @ 100 mls/hr Q24H IVPB 09/03/19 20:00 09/10/19 19:59 09/03/19 20:38 Dextrose (Dextrose 50%) 25 ml Q30M PRN IV Hypoglycemia 08/31/19 16:00 09/30/19 15:59 Dextrose (Dextrose 50%) 50 ml Q30M PRN IV Hypoglycemia 08/31/19 16:00 09/30/19 15:59 Docusate Sodium (Colace) 100 mg EVERY 12 HOURS ORAL 08/31/19 21:00 09/30/19 20:59 09/04/19 08:41 Doxycycline Hyclate 100 mg/ Dextrose 100 ml @ 100 mls/hr Q12HR IV 09/03/19 21:00 09/10/19 20:59 09/04/19 08:41 Famotidine (Pepcid) 10 mg DAILY ORAL 09/01/19 09:00 10/01/19 08:59 09/04/19 08:41 Furosemide (Lasix) 40 mg DAILY IV 09/01/19 09:00 10/01/19 08:59 09/04/19 08:42 Lorazepam (Ativan 2mg/ml 1ml) 1 mg Q6H PRN IV For Anxiety 09/03/19 19:30 09/10/19 19:29 Metronidazole 100 ml @ 100 mls/hr Q8HR IVPB 09/03/19 22:00 09/10/19 21:59 09/04/19 05:18 Ondansetron HCl (Zofran) 4 mg Q6H PRN IVP Nausea & Vomiting 08/31/19 16:00 09/30/19 15:59 09/01/19 19:50 Tom Momin MD Sep 04, 2019 13:34
[2019-09-04 16:00] VITALS: BP 126/97
--- NOTE | 2019-09-04 19:30 | NUR ---
NURSE NOTES: Received patient from Vanessa AMEZCUA, patient in bed, on 2L NC, no signs of respiratory distress. Denies pain, nausea. Bed in low position, locked, call light within reach.
--- NOTE | 2019-09-04 19:35 | NUR ---
HAND-OFF: Report given to Felix AMEZCUA. Patient stable. Endorsed plan of care. Possible discharge tomorrow once oxygen is set up and cleared by ID.
[2019-09-04 20:00] VITALS: BP 171/92
[2019-09-04] MEDS: cefTRIAXone 1 GM in D5W 50 ML IVPB SCH (20:10)
--- NOTE | 2019-09-04 20:19 | Hematology/Onc Progress Note ---
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 Does have lung involvement. also liver involvement. CT Enlarged uterus with central 5.3 x 5 cm mixed echogenicity masslike lesion. In retrospect, prior CT does demonstrate some heterogeneous attenuation in this area. While possibly representing a uterine fibroid, patient age and evidence of metastatic intraperitoneal malignancy raises concern for malignant neoplasm as etiology of this finding. Has peritoneal carcinomatosis --> pelvic us reviewed and cw above --> imaging is noted, CT Abdominal ascites. 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 --> likely requires outpatient chemotherapy with a bevacizumab-based regimen, dw patient and her daughter, they are in no gonz[place] to start treatment --> have discussed with them the importance of treatment, immediately, and will schedule for outpatient rx, will f/u in clinic if possible # Leukocytosis may be due to malginancy --> cxr shows r lung infection, is on levaquin --> wbc trend 19-->20->14-->14.4 --> abx: metro/doxycy/ceftriax # Thrombocytosis also related to malignancy --> unlikely myelofproliferative d/o --> trend as needed 965k-->1000k-->648k-->662 # Pleural effusion, right --> drain as needed with thora --> 09/01 s/p thora # COPD with exacerbation --> steriods prn, breathing rx --> per pulm # Malignant ascites # Acute hyponatremia # Abdominal pain DW RN and appreciate consultation. Subjective Allergies: Coded Allergies: No Known Allergies (Unverified , 06/30/19) Subjective 09/02: no bleeding or chills, seen by pulm, renal, for dc shortly, labs noted 2/2: awake and alert, cxr shows worsening r lung, on abx, labs reviewed Objective Objective Current Medications Medications (Trade) Dose Ordered Sig/Tiffani Route PRN Reason Start Time Stop Time Status Last Admin Dose Admin Acetaminophen (Tylenol) 650 mg Q4H PRN ORAL Mild Pain (Pain Scale 1-3) 08/31/19 16:00 09/30/19 15:59 Albuterol/ Ipratropium (Albuterol/ Ipratropium) 3 ml Q6H PRN HHN Shortness of Breath 08/31/19 16:00 09/05/19 15:59 Ceftriaxone Sodium 1 gm/ Dextrose 50 ml @ 100 mls/hr Q24H IVPB 09/03/19 20:00 09/10/19 19:59 09/04/19 20:10 Dextrose (Dextrose 50%) 25 ml Q30M PRN IV Hypoglycemia 08/31/19 16:00 09/30/19 15:59 Dextrose (Dextrose 50%) 50 ml Q30M PRN IV Hypoglycemia 08/31/19 16:00 09/30/19 15:59 Docusate Sodium (Colace) 100 mg EVERY 12 HOURS ORAL 08/31/19 21:00 09/30/19 20:59 09/04/19 20:11 Doxycycline Hyclate 100 mg/ Dextrose 100 ml @ 100 mls/hr Q12HR IV 09/03/19 21:00 09/10/19 20:59 09/04/19 08:41 Famotidine (Pepcid) 10 mg DAILY ORAL 09/01/19 09:00 10/01/19 08:59 09/04/19 08:41 Furosemide (Lasix) 40 mg DAILY IV 09/01/19 09:00 10/01/19 08:59 09/04/19 08:42 Lorazepam (Ativan 2mg/ml 1ml) 1 mg Q6H PRN IV For Anxiety 09/03/19 19:30 09/10/19 19:29 Metronidazole 100 ml @ 100 mls/hr Q8HR IVPB 09/03/19 22:00 09/10/19 21:59 09/04/19 14:20 Ondansetron HCl (Zofran) 4 mg Q6H PRN IVP Nausea & Vomiting 08/31/19 16:00 09/30/19 15:59 09/01/19 19:50 Last 24 Hour Vital Signs Date Time Temp Pulse Resp B/P (MAP) Pulse Ox O2 Delivery O2 Flow Rate FiO2 09/04/19 16:00 97.7 103 20 126/97 (107) 98 09/04/19 16:00 102 09/04/19 12:00 106 09/04/19 12:00 97.8 101 20 143/80 (101) 95 09/04/19 09:00 Nasal Cannula 2.0 09/04/19 08:00 89 09/04/19 08:00 97.9 93 20 146/84 (104) 98 09/04/19 04:00 96.1 96 24 152/86 (108) 95 09/04/19 04:00 101 09/04/19 00:00 97.2 108 20 155/87 (109) 96 09/04/19 00:00 102 09/03/19 21:00 Nasal Cannula 2.0 09/03/19 20:00 111 09/03/19 20:00 97.9 110 16 155/92 (113) 98 09/03/19 16:00 97.7 107 20 123/78 (93) 97 09/03/19 16:00 118 09/03/19 12:00 97.7 107 20 128/68 (88) 98 09/03/19 12:00 108 09/03/19 08:07 Nasal Cannula 2.0 09/03/19 08:00 93 09/03/19 08:00 97.7 95 20 156/85 (108) 98 09/03/19 04:00 72 09/03/19 04:00 97.8 102 18 126/76 (93) 97 09/03/19 00:00 98.0 101 16 161/92 (115) 95 09/03/19 00:00 95 09/02/19 21:00 Nasal Cannula 2.0 Intake and Output 09/03/19 09/04/19 19:00 07:00 # Voids 2 2 Labs Test 09/02/19 06:15 09/03/19 05:28 09/03/19 18:30 09/04/19 06:05 White Blood Count 15.3 K/UL (4.8-10.8) 16.3 K/UL (4.8-10.8) 14.4 K/UL (4.8-10.8) Red Blood Count 5.01 M/UL (4.20-5.40) 5.00 M/UL (4.20-5.40) 4.58 M/UL (4.20-5.40) Hemoglobin 13.2 G/DL (12.0-16.0) 13.0 G/DL (12.0-16.0) 12.2 G/DL (12.0-16.0) Hematocrit 40.4 % (37.0-47.0) 40.1 % (37.0-47.0) 36.8 % (37.0-47.0) Mean Corpuscular Volume 81 FL (80-99) 80 FL (80-99) 80 FL (80-99) Mean Corpuscular Hemoglobin 26.4 PG (27.0-31.0) 26.1 PG (27.0-31.0) 26.6 PG (27.0-31.0) Mean Corpuscular Hemoglobin Concent 32.7 G/DL (32.0-36.0) 32.5 G/DL (32.0-36.0) 33.1 G/DL (32.0-36.0) Red Cell Distribution Width 14.0 % (11.6-14.8) 14.1 % (11.6-14.8) 14.0 % (11.6-14.8) Platelet Count 635 K/UL (150-450) 691 K/UL (150-450) 662 K/UL (150-450) Mean Platelet Volume 5.6 FL (6.5-10.1) 5.1 FL (6.5-10.1) 4.9 FL (6.5-10.1) Neutrophils (%) (Auto) 67.2 % (45.0-75.0) 72.2 % (45.0-75.0) 68.0 % (45.0-75.0) Lymphocytes (%) (Auto) 18.8 % (20.0-45.0) 14.9 % (20.0-45.0) 17.3 % (20.0-45.0) Monocytes (%) (Auto) 11.9 % (1.0-10.0) 11.4 % (1.0-10.0) 12.7 % (1.0-10.0) Eosinophils (%) (Auto) 0.4 % (0.0-3.0) 0.6 % (0.0-3.0) 0.8 % (0.0-3.0) Basophils (%) (Auto) 1.8 % (0.0-2.0) 1.0 % (0.0-2.0) 1.1 % (0.0-2.0) Sodium Level 128 MMOL/L (136-145) 128 MMOL/L (136-145) 128 MMOL/L (136-145) Potassium Level 5.0 MMOL/L (3.5-5.1) 4.7 MMOL/L (3.5-5.1) 4.7 MMOL/L (3.5-5.1) Chloride Level 91 MMOL/L (98-107) 91 MMOL/L (98-107) 92 MMOL/L (98-107) Carbon Dioxide Level 31 MMOL/L (21-32) 30 MMOL/L (21-32) 32 MMOL/L (21-32) Anion Gap 6 mmol/L (5-15) 7 mmol/L (5-15) 4 mmol/L (5-15) Blood Urea Nitrogen 22 mg/dL (7-18) 20 mg/dL (7-18) 18 mg/dL (7-18) Creatinine 1.0 MG/DL (0.55-1.30) 1.0 MG/DL (0.55-1.30) 0.8 MG/DL (0.55-1.30) Estimat Glomerular Filtration Rate mL/min (>60) mL/min (>60) mL/min (>60) Glucose Level 101 MG/DL (74-106) 89 MG/DL (74-106) 82 MG/DL (74-106) Calcium Level 9.2 MG/DL (8.5-10.1) 9.0 MG/DL (8.5-10.1) 8.9 MG/DL (8.5-10.1) Total Bilirubin 0.5 MG/DL (0.2-1.0) Aspartate Amino Transf (AST/SGOT) 34 U/L (15-37) Alanine Aminotransferase (ALT/SGPT) 21 U/L (12-78) Alkaline Phosphatase 92 U/L (46-116) Total Protein 6.6 G/DL (6.4-8.2) Albumin 2.3 G/DL (3.4-5.0) Globulin 4.3 g/dL Albumin/Globulin Ratio 0.5 (1.0-2.7) Test 09/04/19 09:50 Urine Color Pale yellow Urine Appearance Clear Urine pH 5 (4.5-8.0) Urine Specific [place] 1.020 (1.005-1.035) Urine Protein 1+ (NEGATIVE) Urine Glucose (UA) Negative (NEGATIVE) Urine Ketones 1+ (NEGATIVE) Urine Blood 2+ (NEGATIVE) Urine Nitrite Negative (NEGATIVE) Urine Bilirubin Negative (NEGATIVE) Urine Urobilinogen Normal MG/DL (0.0-1.0) Urine Leukocyte Esterase 1+ (NEGATIVE) Urine RBC 2-4 /HPF (0 - 2) Urine WBC 5-10 /HPF (0 - 2) Urine Squamous Epithelial Cells Few /LPF (NONE/OCC) Urine Bacteria Few /HPF (NONE) Height (Feet): 5 Height (Inches): 6.00 Weight (Pounds): 175 Objective Gen: well appearing, alert, mild distress Respiratory: chest non-tender, decreased breath sounds especially right side, NC 2L++ Cardiovascular: regular rate, rhythm, no murmur Gastrointestinal: normal bowel sounds, no mass, no organomegaly,Abdominal pain , mild, diffuse Musculoskeletal: back normal, normal range of motion, gait/station normal Psychiatric: mood/affect normal Ext: no cce Neuro: tired and confused Selvin Atkins MD Sep 04, 2019 20:19
[2019-09-05] VITALS: BP 139/81
[2019-09-05 04:00] VITALS: BP 149/79
[2019-09-05 07:03] LABS: ANION GAP 9 mmol/L (5-15); CALCIUM 9.5 MG/DL (8.5-10.1); CARBON DIOXIDE 29 MMOL/L (21-32); CHLORIDE 88 MMOL/L (98-107); CREATININE 0.9 MG/DL (0.55-1.30); POTASSIUM 4.6 MMOL/L (3.5-5.1); SODIUM 126 MMOL/L (136-145)
[2019-09-05 07:07] LABS: BASOPHILS % (AUTO) 1.2 % (0.0-2.0); EOSINOPHILS % (AUTO) 0.7 % (0.0-3.0); HEMATOCRIT 38.4 % (37.0-47.0); LYMPHOCYTES % (AUTO) 15.3 % (20.0-45.0); MEAN CORPUSCULAR VOLUME 79 FL (80-99); MONOCYTES % (AUTO) 12.7 % (1.0-10.0); NEUTROPHILS % (AUTO) 70.1 % (45.0-75.0); PLATELET COUNT 717 K/UL (150-450); RED BLOOD COUNT 4.87 M/UL (4.20-5.40); RED CELL DISTRIBUTION WIDTH 13.8 % (11.6-14.8); WHITE BLOOD COUNT 14.8 K/UL (4.8-10.8)
[2019-09-05 07:17] LABS: BLOOD UREA NITROGEN 22 mg/dL (7-18)
--- NOTE | 2019-09-05 07:30 | NUR ---
NURSE NOTES: Received report from GOLDIE [place]. The patient is leaning forward for breathing support and is on NC per order. The patient's bed in the lowest position, call light in reach, and fall and aspiration precaution reinforced. IV site intact and patent. Will continue plan of care.
[2019-09-05 08:00] VITALS: BP 134/78
--- NOTE | 2019-09-05 08:35 | Hematology/Onc Progress Note ---
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 Does have lung involvement. also liver involvement. CT Enlarged uterus with central 5.3 x 5 cm mixed echogenicity masslike lesion. In retrospect, prior CT does demonstrate some heterogeneous attenuation in this area. While possibly representing a uterine fibroid, patient age and evidence of metastatic intraperitoneal malignancy raises concern for malignant neoplasm as etiology of this finding. Has peritoneal carcinomatosis --> pelvic us reviewed and cw above --> imaging is noted, CT Abdominal ascites. 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, does show mullerian/stem shaper source --> likely requires outpatient chemotherapy with a bevacizumab-based regimen, dw patient and her daughter, they are in no gonzalez to start treatment --> have discussed with them the importance of treatment, immediately, and will schedule for outpatient rx, will f/u in clinic if possible --> Ca-125 2700-->4200 # Leukocytosis may be due to malginancy --> cxr shows r lung infection, is on levaquin --> wbc trend 19-->20->14-->14.4-->15 --> abx: metro/doxycy/ceftriax # Thrombocytosis also related to malignancy --> unlikely myelofproliferative d/o --> trend as needed 965k-->1000k-->648k-->662-->720 # Pleural effusion, right --> drain as needed with thora --> 09/01 s/p thora # COPD with exacerbation --> steriods prn, breathing rx --> per pulm # Malignant ascites # Acute hyponatremia # Abdominal pain DARELL RN and appreciate consultation. Subjective Constitutional: Denies: no symptoms, chills, fever, malaise, weakness, other HEENT: Denies: no symptoms, eye pain, blurred vision, tearing, double vision, ear pain, ear discharge, nose pain, nose congestion, throat pain, throat swelling, mouth pain, mouth swelling, other Cardiovascular: Denies: no symptoms, chest pain, edema, irregular heart rate, lightheadedness, palpitations, syncope, other Gastrointestinal/Abdominal: Denies: no symptoms, abdomen distended, abdominal pain, black stools, tarry stools, blood in stool, constipated, diarrhea, difficulty swallowing, nausea, poor appetite, poor fluid intake, rectal bleeding , vomiting, other Genitourinary: Denies: no symptoms, burning, discharge, frequency, flank pain, hematuria, incontinence, pain, urgency, other Neurologic/Psychiatric: Denies: no symptoms, anxiety, depressed, emotional problems, headache, numbness, paresthesia, pre-existing deficit, seizure, tingling, tremors, weakness, other Endocrine: Denies: no symptoms, excessive sweating, flushing, intolerance to cold, intolerance to heat, increased hunger, increased thirst, increased urine, unexplained weight gain, unexplained weight loss, other Allergies: Coded Allergies: No Known Allergies (Unverified , 06/30/19) Subjective 09/02: no bleeding or chills, seen by pulm, renal, for dc shortly, labs noted 09/04: awake and alert, cxr shows worsening r lung, on abx, labs reviewed 09/05: no major bleeding, tumor markers reviewed, dw rn Objective Objective Current Medications Medications (Trade) Dose Ordered Sig/Tiffani Route PRN Reason Start Time Stop Time Status Last Admin Dose Admin Acetaminophen (Tylenol) 650 mg Q4H PRN ORAL Mild Pain (Pain Scale 1-3) 08/31/19 16:00 09/30/19 15:59 Albuterol/ Ipratropium (Albuterol/ Ipratropium) 3 ml Q6H PRN HHN Shortness of Breath 08/31/19 16:00 09/05/19 15:59 Ceftriaxone Sodium 1 gm/ Dextrose 50 ml @ 100 mls/hr Q24H IVPB 09/03/19 20:00 09/10/19 19:59 09/04/19 20:10 Dextrose (Dextrose 50%) 25 ml Q30M PRN IV Hypoglycemia 08/31/19 16:00 09/30/19 15:59 Dextrose (Dextrose 50%) 50 ml Q30M PRN IV Hypoglycemia 08/31/19 16:00 09/30/19 15:59 Docusate Sodium (Colace) 100 mg EVERY 12 HOURS ORAL 08/31/19 21:00 09/30/19 20:59 09/04/19 20:11 Doxycycline Hyclate 100 mg/ Dextrose 100 ml @ 100 mls/hr Q12HR IV 09/03/19 21:00 09/10/19 20:59 09/04/19 20:55 Famotidine (Pepcid) 10 mg DAILY ORAL 09/01/19 09:00 10/01/19 08:59 09/04/19 08:41 Furosemide (Lasix) 40 mg DAILY IV 09/01/19 09:00 10/01/19 08:59 09/04/19 08:42 Lorazepam (Ativan 2mg/ml 1ml) 1 mg Q6H PRN IV For Anxiety 09/03/19 19:30 09/10/19 19:29 Metronidazole 100 ml @ 100 mls/hr Q8HR IVPB 09/03/19 22:00 09/10/19 21:59 09/05/19 05:10 Ondansetron HCl (Zofran) 4 mg Q6H PRN IVP Nausea & Vomiting 08/31/19 16:00 09/30/19 15:59 09/05/19 05:05 Last 24 Hour Vital Signs Date Time Temp Pulse Resp B/P (MAP) Pulse Ox O2 Delivery O2 Flow Rate FiO2 09/05/19 04:00 97.8 99 18 149/79 (102) 99 09/05/19 04:00 98 09/05/19 00:00 99 09/05/19 00:00 97.9 102 20 139/81 (100) 97 09/04/19 22:00 99 09/04/19 21:00 Nasal Cannula 2.0 09/04/19 20:00 98.4 106 20 171/92 (118) 96 09/04/19 16:00 97.7 103 20 126/97 (107) 98 09/04/19 16:00 102 09/04/19 12:00 106 09/04/19 12:00 97.8 101 20 143/80 (101) 95 09/04/19 09:00 Nasal Cannula 2.0 09/04/19 08:00 89 09/04/19 08:00 97.9 93 20 146/84 (104) 98 09/04/19 04:00 96.1 96 24 152/86 (108) 95 09/04/19 04:00 101 09/04/19 00:00 97.2 108 20 155/87 (109) 96 09/04/19 00:00 102 09/03/19 21:00 Nasal Cannula 2.0 09/03/19 20:00 111 09/03/19 20:00 97.9 110 16 155/92 (113) 98 09/03/19 16:00 97.7 107 20 123/78 (93) 97 09/03/19 16:00 118 09/03/19 12:00 97.7 107 20 128/68 (88) 98 09/03/19 12:00 108 Intake and Output 09/04/19 09/05/19 18:59 06:59 Intake Total 118 ml 480 ml Balance 118 ml 480 ml Intake Oral 118 ml 480 ml # Voids 2 3 Labs Test 09/03/19 05:28 09/03/19 18:30 09/04/19 06:05 09/04/19 09:50 White Blood Count 16.3 K/UL (4.8-10.8) 14.4 K/UL (4.8-10.8) Red Blood Count 5.00 M/UL (4.20-5.40) 4.58 M/UL (4.20-5.40) Hemoglobin 13.0 G/DL (12.0-16.0) 12.2 G/DL (12.0-16.0) Hematocrit 40.1 % (37.0-47.0) 36.8 % (37.0-47.0) Mean Corpuscular Volume 80 FL (80-99) 80 FL (80-99) Mean Corpuscular Hemoglobin 26.1 PG (27.0-31.0) 26.6 PG (27.0-31.0) Mean Corpuscular Hemoglobin Concent 32.5 G/DL (32.0-36.0) 33.1 G/DL (32.0-36.0) Red Cell Distribution Width 14.1 % (11.6-14.8) 14.0 % (11.6-14.8) Platelet Count 691 K/UL (150-450) 662 K/UL (150-450) Mean Platelet Volume 5.1 FL (6.5-10.1) 4.9 FL (6.5-10.1) Neutrophils (%) (Auto) 72.2 % (45.0-75.0) 68.0 % (45.0-75.0) Lymphocytes (%) (Auto) 14.9 % (20.0-45.0) 17.3 % (20.0-45.0) Monocytes (%) (Auto) 11.4 % (1.0-10.0) 12.7 % (1.0-10.0) Eosinophils (%) (Auto) 0.6 % (0.0-3.0) 0.8 % (0.0-3.0) Basophils (%) (Auto) 1.0 % (0.0-2.0) 1.1 % (0.0-2.0) Sodium Level 128 MMOL/L (136-145) 128 MMOL/L (136-145) Potassium Level 4.7 MMOL/L (3.5-5.1) 4.7 MMOL/L (3.5-5.1) Chloride Level 91 MMOL/L (98-107) 92 MMOL/L (98-107) Carbon Dioxide Level 30 MMOL/L (21-32) 32 MMOL/L (21-32) Anion Gap 7 mmol/L (5-15) 4 mmol/L (5-15) Blood Urea Nitrogen 20 mg/dL (7-18) 18 mg/dL (7-18) Creatinine 1.0 MG/DL (0.55-1.30) 0.8 MG/DL (0.55-1.30) Estimat Glomerular Filtration Rate mL/min (>60) mL/min (>60) Glucose Level 89 MG/DL (74-106) 82 MG/DL (74-106) Calcium Level 9.0 MG/DL (8.5-10.1) 8.9 MG/DL (8.5-10.1) Total Bilirubin 0.5 MG/DL (0.2-1.0) Aspartate Amino Transf (AST/SGOT) 34 U/L (15-37) Alanine Aminotransferase (ALT/SGPT) 21 U/L (12-78) Alkaline Phosphatase 92 U/L (46-116) Total Protein 6.6 G/DL (6.4-8.2) Albumin 2.3 G/DL (3.4-5.0) Globulin 4.3 g/dL Albumin/Globulin Ratio 0.5 (1.0-2.7) Urine Color Pale yellow Urine Appearance Clear Urine pH 5 (4.5-8.0) Urine Specific [place] 1.020 (1.005-1.035) Urine Protein 1+ (NEGATIVE) Urine Glucose (UA) Negative (NEGATIVE) Urine Ketones 1+ (NEGATIVE) Urine Blood 2+ (NEGATIVE) Urine Nitrite Negative (NEGATIVE) Urine Bilirubin Negative (NEGATIVE) Urine Urobilinogen Normal MG/DL (0.0-1.0) Urine Leukocyte Esterase 1+ (NEGATIVE) Urine RBC 2-4 /HPF (0 - 2) Urine WBC 5-10 /HPF (0 - 2) Urine Squamous Epithelial Cells Few /LPF (NONE/OCC) Urine Bacteria Few /HPF (NONE) Test 09/05/19 05:20 White Blood Count 14.8 K/UL (4.8-10.8) Red Blood Count 4.87 M/UL (4.20-5.40) Hemoglobin 13.0 G/DL (12.0-16.0) Hematocrit 38.4 % (37.0-47.0) Mean Corpuscular Volume 79 FL (80-99) Mean Corpuscular Hemoglobin 26.6 PG (27.0-31.0) Mean Corpuscular Hemoglobin Concent 33.7 G/DL (32.0-36.0) Red Cell Distribution Width 13.8 % (11.6-14.8) Platelet Count 717 K/UL (150-450) Mean Platelet Volume 4.9 FL (6.5-10.1) Neutrophils (%) (Auto) 70.1 % (45.0-75.0) Lymphocytes (%) (Auto) 15.3 % (20.0-45.0) Monocytes (%) (Auto) 12.7 % (1.0-10.0) Eosinophils (%) (Auto) 0.7 % (0.0-3.0) Basophils (%) (Auto) 1.2 % (0.0-2.0) Sodium Level 126 MMOL/L (136-145) Potassium Level 4.6 MMOL/L (3.5-5.1) Chloride Level 88 MMOL/L (98-107) Carbon Dioxide Level 29 MMOL/L (21-32) Anion Gap 9 mmol/L (5-15) Blood Urea Nitrogen 22 mg/dL (7-18) Creatinine 0.9 MG/DL (0.55-1.30) Estimat Glomerular Filtration Rate mL/min (>60) Glucose Level 98 MG/DL (74-106) Calcium Level 9.5 MG/DL (8.5-10.1) Height (Feet): 5 Height (Inches): 6.00 Weight (Pounds): 175 Objective Gen: well appearing, alert, mild distress Respiratory: chest non-tender, decreased breath sounds especially right side, NC 2L++ Cardiovascular: regular rate, rhythm, no murmur Gastrointestinal: normal bowel sounds, no mass, no organomegaly,Abdominal pain , mild, diffuse Musculoskeletal: back normal, normal range of motion, gait/station normal Psychiatric: mood/affect normal Ext: no cce Neuro: tired and confused Selvin Atkins MD Sep 05, 2019 08:35
--- NOTE | 2019-09-05 08:45 | Nephrology Progress Note ---
Assessment/Plan Status: unchanged Assessment/Plan: A/P 1) PNA- appreciate ID abx reccs - VRE rectum 2) SOB- pleural effusion- s/p 1 L thoracentesis - due to/associated with STAGE 4 ovarian CA -home 02 being arranged 3) HTN- coreg 4) STAGE 4 Ovarian CA- patient to follow up Onc for chemo 5) Hyponatremia- lasix. Needs strict po fluid restriction - SIADH from underlying malignancy - po fluid restrict 1 L day Subjective Date patient seen: Sep 05, 2019 Time patient seen: 08:42 Allergies: Coded Allergies: No Known Allergies (Unverified , 06/30/19) Subjective Pending DC post home 02 set up Objective Last 24 Hour Vital Signs Date Time Temp Pulse Resp B/P (MAP) Pulse Ox O2 Delivery O2 Flow Rate FiO2 09/05/19 04:00 97.8 99 18 149/79 (102) 99 09/05/19 04:00 98 09/05/19 00:00 99 09/05/19 00:00 97.9 102 20 139/81 (100) 97 09/04/19 22:00 99 09/04/19 21:00 Nasal Cannula 2.0 09/04/19 20:00 98.4 106 20 171/92 (118) 96 09/04/19 16:00 97.7 103 20 126/97 (107) 98 09/04/19 16:00 102 09/04/19 12:00 106 09/04/19 12:00 97.8 101 20 143/80 (101) 95 09/04/19 09:00 Nasal Cannula 2.0 Intake and Output 09/04/19 09/05/19 19:00 07:00 Intake Total 118 ml 480 ml Balance 118 ml 480 ml Intake Oral 118 ml 480 ml # Voids 2 3 Laboratory Tests 09/04/19 09:50: Urine Color Pale yellow, Urine Appearance Clear, Urine pH 5, Urine Specific [place] 1.020, Urine Protein 1+H, Urine Glucose (UA) Negative, Urine Ketones 1+H , Urine Blood 2+H, Urine Nitrite Negative, Urine Bilirubin Negative, Urine Urobilinogen Normal, Urine Leukocyte Esterase 1+H, Urine RBC 2-4H, Urine WBC 5- 10H, Urine Squamous Epithelial Cells Few, Urine Bacteria Few, Urine Legionella Antigen [Pending] 09/05/19 05:20: White Blood Count 14.8H, Red Blood Count 4.87, Hemoglobin 13.0, Hematocrit 38.4 , Mean Corpuscular Volume 79L, Mean Corpuscular Hemoglobin 26.6L, Mean Corpuscular Hemoglobin Concent 33.7, Red Cell Distribution Width 13.8, Platelet Count 717H, Mean Platelet Volume 4.9L, Neutrophils (%) (Auto) 70.1, Lymphocytes (%) (Auto) 15.3L, Monocytes (%) (Auto) 12.7H, Eosinophils (%) (Auto) 0.7, Basophils (%) (Auto) 1.2, Sodium Level 126L, Potassium Level 4.6, Chloride Level 88L, Carbon Dioxide Level 29, Anion Gap 9, Blood Urea Nitrogen 22H, Creatinine 0.9, Estimat Glomerular Filtration Rate , Glucose Level 98, Calcium Level 9.5 Height (Feet): 5 Height (Inches): 6.00 Weight (Pounds): 175 Ty Schaefer MD Sep 05, 2019 08:45
--- NOTE | 2019-09-05 08:56 | NUR ---
CASE MANAGEMENT:INITIAL REVIEW 09/05/19 SI:PLEURAL EFFUSION . DYSPNEA . OVARIAN CANCER 97.8 98 18 149/79 99% ON 2L NC WBC 14.8 PLT 717 NA+126 CL-88 IS:IV FLAGYL Q8HR IV DOXYCYCLINE BID IV ROCEPHIN Q24HR IV LASIX QD IV ZOFRAN Q6HR/PRN \: 2E TELE UNIT PLAN: HOME O2 WILL BE DELIVERED TODAY AT BEDSIDE Addendum: 09/05/19 at 0910 by JAX HOLLEY LVN CASE MANAGEMENT:INITIAL REVIEW 09/05/19 SI:S/P THORACENTESIS . PLEURAL EFFUSION . DYSPNEA . OVARIAN CANCER 97.8 98 18 149/79 99% ON 2L NC WBC 14.8 PLT 717 NA+126 CL-88 IS:IV FLAGYL Q8HR IV DOXYCYCLINE BID IV ROCEPHIN Q24HR IV LASIX QD IV ZOFRAN Q6HR/PRN \: 2E TELE UNIT PLAN: HOME O2 WILL BE DELIVERED TODAY AT BEDSIDE
[2019-09-05] MEDS: Docusate 100mg cap ORAL SCH (08:59)
--- NOTE | 2019-09-05 09:03 | NUR ---
DISCHARGE PLANNED: SPOKE TO (RENATA) FROM [facility] (T:[phone]) HOME O2 WILL BE AUTHORIZED TODAY [facility] TO DELIVER OXYGEN TANK AT BEDSIDE (T:[phone])
--- NOTE | 2019-09-05 09:30 | NUR ---
NURSE NOTES: Clarification made regarding discharge order with Dr. Schaefer. Per Dr. Schaefer, the patient is okay to be discharged as the patient is cleared by nephro and ID standpoint. Home health arranged by the oil field caser. Waiting for oxygen delivery. Will continue plan of care until discharge.
--- NOTE | 2019-09-05 09:44 | General Progress Note ---
Assessment/Plan Problem List: (1) Pneumonia involving right lung ICD Codes: J18.9 - Pneumonia, unspecified organism SNOMED: 232358282 (2) Respiratory distress ICD Codes: R06.03 - Acute respiratory distress SNOMED: 686037914 (3) Leukocytosis ICD Codes: D72.829 - Elevated white blood cell count, unspecified SNOMED: 244617945, 854786304 (4) Ovarian cancer ICD Codes: C56.9 - Malignant neoplasm of unspecified ovary SNOMED: 472183775 (5) Dyspnea ICD Codes: R06.00 - Dyspnea, unspecified SNOMED: 151378609 (6) Pleural effusion ICD Codes: J90 - Pleural effusion, not elsewhere classified SNOMED: 13445535 Status: unchanged Assessment/Plan: o2 pulm tx abx cbc bmp am dc plan w hh Subjective Constitutional: Reports: weakness Respiratory: Reports: shortness of breath Allergies: Coded Allergies: No Known Allergies (Unverified , 06/30/19) All Systems: reviewed and negative except above Subjective o2nc calm Objective Last 24 Hour Vital Signs Date Time Temp Pulse Resp B/P (MAP) Pulse Ox O2 Delivery O2 Flow Rate FiO2 09/05/19 04:00 97.8 99 18 149/79 (102) 99 09/05/19 04:00 98 09/05/19 00:00 99 09/05/19 00:00 97.9 102 20 139/81 (100) 97 09/04/19 22:00 99 09/04/19 21:00 Nasal Cannula 2.0 09/04/19 20:00 98.4 106 20 171/92 (118) 96 09/04/19 16:00 97.7 103 20 126/97 (107) 98 09/04/19 16:00 102 09/04/19 12:00 106 09/04/19 12:00 97.8 101 20 143/80 (101) 95 Intake and Output 09/04/19 09/05/19 19:00 07:00 Intake Total 118 ml 480 ml Balance 118 ml 480 ml Intake Oral 118 ml 480 ml # Voids 2 3 Laboratory Tests 09/04/19 09:50: Urine Color Pale yellow, Urine Appearance Clear, Urine pH 5, Urine Specific [place] 1.020, Urine Protein 1+H, Urine Glucose (UA) Negative, Urine Ketones 1+H , Urine Blood 2+H, Urine Nitrite Negative, Urine Bilirubin Negative, Urine Urobilinogen Normal, Urine Leukocyte Esterase 1+H, Urine RBC 2-4H, Urine WBC 5- 10H, Urine Squamous Epithelial Cells Few, Urine Bacteria Few, Urine Legionella Antigen [Pending] 09/05/19 05:20: White Blood Count 14.8H, Red Blood Count 4.87, Hemoglobin 13.0, Hematocrit 38.4 , Mean Corpuscular Volume 79L, Mean Corpuscular Hemoglobin 26.6L, Mean Corpuscular Hemoglobin Concent 33.7, Red Cell Distribution Width 13.8, Platelet Count 717H, Mean Platelet Volume 4.9L, Neutrophils (%) (Auto) 70.1, Lymphocytes (%) (Auto) 15.3L, Monocytes (%) (Auto) 12.7H, Eosinophils (%) (Auto) 0.7, Basophils (%) (Auto) 1.2, Sodium Level 126L, Potassium Level 4.6, Chloride Level 88L, Carbon Dioxide Level 29, Anion Gap 9, Blood Urea Nitrogen 22H, Creatinine 0.9, Estimat Glomerular Filtration Rate , Glucose Level 98, Calcium Level 9.5 Height (Feet): 5 Height (Inches): 6.00 Weight (Pounds): 175 General Appearance: lethargic EENT: normal ENT inspection Neck: normal alignment Cardiovascular: normal peripheral pulses, normal rate, regular rhythm Respiratory/Chest: chest wall non-tender, lungs clear, normal breath sounds Abdomen: normal bowel sounds, non tender, soft Extremities: normal inspection Edema: no edema noted Arm (L), no edema noted Arm (R), no edema noted Leg (L), no edema noted Leg (R), no edema noted Pedal (L), no edema noted Pedal (R), no edema noted Generalized Neurologic: motor weakness Skin: normal pigmentation, warm/dry Dat Perez DO Sep 05, 2019 09:44
--- NOTE | 2019-09-05 10:21 | Pulmonology Progress Note ---
Assessment/Plan Assessment/Plan IMPRESSION: 1. Right pleural effusion likely secondary to ovarian carcinoma. 2. Leukocytosis. 3. Thrombocytosis. 4. Chronic obstructive pulmonary disease. DISCUSSION: Agree with present management and care. The patient has been seen by Hematology/Oncology. Outpatient chemotherapy has been advocated. At this point, the patient is comfortable and likely we will discharge home with outpatient follow up with Oncology. Hold off on further thoracentesis. May need home O2 Sina Metcalf M.D. Subjective Interval Events: None new; on low flow O2 Constitutional: Reports: no symptoms HEENT: Repors: no symptoms Respiratory: Reports: no symptoms Cardiovascular: Reports: no symptoms Allergies: Coded Allergies: No Known Allergies (Unverified , 06/30/19) Objective Last 24 Hour Vital Signs Date Time Temp Pulse Resp B/P (MAP) Pulse Ox O2 Delivery O2 Flow Rate FiO2 09/05/19 04:00 97.8 99 18 149/79 (102) 99 09/05/19 04:00 98 09/05/19 00:00 99 09/05/19 00:00 97.9 102 20 139/81 (100) 97 09/04/19 22:00 99 09/04/19 21:00 Nasal Cannula 2.0 09/04/19 20:00 98.4 106 20 171/92 (118) 96 09/04/19 16:00 97.7 103 20 126/97 (107) 98 09/04/19 16:00 102 09/04/19 12:00 106 09/04/19 12:00 97.8 101 20 143/80 (101) 95 Intake and Output 09/04/19 09/05/19 19:00 07:00 Intake Total 118 ml 480 ml Balance 118 ml 480 ml Intake Oral 118 ml 480 ml # Voids 2 3 General Appearance: no acute distress HEENT: normocephalic Respiratory/Chest: chest wall non-tender, lungs clear Cardiovascular: normal peripheral pulses, normal rate Abdomen: normal bowel sounds Microbiology Date/Time Source Procedure Growth Status 09/03/19 18:33 Blood Blood Culture - Preliminary NO GROWTH AFTER 24 HOURS Resulted 09/03/19 18:22 Blood Blood Culture - Preliminary NO GROWTH AFTER 24 HOURS Resulted 09/03/19 09:50 Urine,Clean Catch Urine Culture - Preliminary Resulted Laboratory Tests 09/05/19 05:20: White Blood Count 14.8H, Red Blood Count 4.87, Hemoglobin 13.0, Hematocrit 38.4 , Mean Corpuscular Volume 79L, Mean Corpuscular Hemoglobin 26.6L, Mean Corpuscular Hemoglobin Concent 33.7, Red Cell Distribution Width 13.8, Platelet Count 717H, Mean Platelet Volume 4.9L, Neutrophils (%) (Auto) 70.1, Lymphocytes (%) (Auto) 15.3L, Monocytes (%) (Auto) 12.7H, Eosinophils (%) (Auto) 0.7, Basophils (%) (Auto) 1.2, Sodium Level 126L, Potassium Level 4.6, Chloride Level 88L, Carbon Dioxide Level 29, Anion Gap 9, Blood Urea Nitrogen 22H, Creatinine 0.9, Estimat Glomerular Filtration Rate , Glucose Level 98, Calcium Level 9.5 Current Medications Medications (Trade) Dose Ordered Sig/Tiffani Route PRN Reason Start Time Stop Time Status Last Admin Dose Admin Acetaminophen (Tylenol) 650 mg Q4H PRN ORAL Mild Pain (Pain Scale 1-3) 08/31/19 16:00 09/30/19 15:59 Albuterol/ Ipratropium (Albuterol/ Ipratropium) 3 ml Q6H PRN HHN Shortness of Breath 08/31/19 16:00 09/05/19 15:59 Ceftriaxone Sodium 1 gm/ Dextrose 50 ml @ 100 mls/hr Q24H IVPB 09/03/19 20:00 09/10/19 19:59 09/04/19 20:10 Dextrose (Dextrose 50%) 25 ml Q30M PRN IV Hypoglycemia 08/31/19 16:00 09/30/19 15:59 Dextrose (Dextrose 50%) 50 ml Q30M PRN IV Hypoglycemia 08/31/19 16:00 09/30/19 15:59 Docusate Sodium (Colace) 100 mg EVERY 12 HOURS ORAL 08/31/19 21:00 09/30/19 20:59 09/05/19 08:59 Doxycycline Hyclate 100 mg/ Dextrose 100 ml @ 100 mls/hr Q12HR IV 09/03/19 21:00 09/10/19 20:59 09/05/19 08:59 Famotidine (Pepcid) 10 mg DAILY ORAL 09/01/19 09:00 10/01/19 08:59 09/05/19 08:59 Furosemide (Lasix) 40 mg DAILY IV 09/01/19 09:00 10/01/19 08:59 09/05/19 08:58 Lorazepam (Ativan 2mg/ml 1ml) 1 mg Q6H PRN IV For Anxiety 09/03/19 19:30 09/10/19 19:29 Metronidazole 100 ml @ 100 mls/hr Q8HR IVPB 09/03/19 22:00 09/10/19 21:59 09/05/19 05:10 Ondansetron HCl (Zofran) 4 mg Q6H PRN IVP Nausea & Vomiting 08/31/19 16:00 09/30/19 15:59 09/05/19 05:05 Sina Metcalf MD Sep 05, 2019 10:21
--- NOTE | 2019-09-05 10:30 | NUR ---
NURSE NOTES: The patient is stable without acute distress or shortness of breath. Will continue plan of care.
[2019-09-05 12:00] VITALS: BP 141/90
--- NOTE | 2019-09-05 12:00 | NUR ---
NURSE NOTES: The patient is stable without acute distress or shortness of breath. The patient is on oxygen therapy per order. Pending for home oxygen delivery. Will continue plan of care.
--- NOTE | 2019-09-05 15:30 | NUR ---
NURSE NOTES: Received the message that the patient's oxygen will be delivered around 1800. Will continue plan of care until discharge.
[2019-09-05 16:00] VITALS: BP 129/71
[2019-09-05] MEDS ORDERED: AUGMENTIN 875-1 EAC1 ORAL (16:40)
--- NOTE | 2019-09-05 18:00 | NUR ---
NURSE NOTES: The patient is resting on the bed without acute distress or shortness of breath. The patient is being ready to be discharged. The patient has home oxygen delivered at the bedside. Transportation arrangement is being made, and ambulance will come @ 1900 to 1915. Will continue plan of care until discharge.
--- NOTE | 2019-09-05 19:30 | NUR ---
NURSE NOTES: Received patient from Jessika AMEZCUA. Patient awake, alert and oriented x3. On 2L NC, no signs of respiratory distress. Daughter at bedside. Discharge education given. Prescriptions given to daughter. Awaiting transport to [facility] patient.
--- NOTE | 2019-09-05 19:30 | NUR ---
HAND-OFF: Report given to GOLDIE [place]. The patient is resting on the bed without acute distress or shortness of breath. The patient's bed in the lowest position, call light in reach, and fall and aspiration precaution reinforced. IV site intact and patent. Discharge education given to the patient and daughter and signed by the patient. The patient's belongings checked with patient and signed by the patient. Discharge prescription given to daughter, and daughter picked up the medication. Home oxygen ready at the bedside and set up done at home. Cleared by primary physician, nephro, and ID doctor to be discharged. Awaiting for transportation to come and pick the patient up. Endorsed plan of care.
[2019-09-05 20:41] VITALS: BP 130/80
--- NOTE | 2019-09-05 20:42 | NUR ---
NURSE NOTES: Patient discharged via [facility]. Arm band off, tele monitor off, IV discontinued. Patient in stable condition.
--- NOTE | 2019-09-06 13:02 | CDS Physician Query ---
Clarification is required for compliance, coding accuracy, and to reflect severity of illness for this patient Dear Tom Mchugh MD Date: 09/06/2019 CDS: Adarsh Longoria This is a very pleasant 74-year-old female who comes in to [facility] with history of ovarian cancer, stage IV with metastasis and comes in with dyspnea. Assessment/Plan Assessment/Plan Full consult dictated: 1) ? pna, ? uti, ? sepsis, leukocytosis 2) ovarian CA 3) allergies - nkda WBC: 15.7--->16.3 Tx: IV DOXYCYCLIINE; IV CEFTRIAXON According to the clinical indications above, please indicate below the condition PHYSICIAN RESPONSE: Sepsis SIRS SIRS with organ dysfunction Septic Shock Not applicable Other: Present on Admission: Yes No Clinically Undetermined Physician signature Date Please also document in your Progress Notes and/or Discharge Summary and indicate if the condition was present on admission. MTDD
--- NOTE | 2019-09-07 08:40 | Discharge Summary ---
Discharge Summary Discharge Summary _ DATE OF ADMISSION: 08/31/2019 DATE OF DISCHARGE: 09/05/2019 DISCHARGED BY: Dr Perez REASON FOR ADMISSION: 74 years old female with past medical history of hypertension, COPD, metastatic ovarian cancer, stage IV presented with complaints of shortness of breath. Patient required supplemental oxygen to maintain appropriate oxygenation. Blood pressure was elevated 175/100 ; patient was tachycardic with heart rate of 112. Chest x-ray revealed massive right pleural effusion. Laboratory work-up revealed leukocytosis WBC 15.7, stable hemoglobin and hematocrit. Sodium 128. Glucose 123. Troponin negative, pro BNP 489. Lactic acid 1.8. Urinalysis revealed pyuria , few bacteria, +1 leukocyte esterase Ultrasound-guided thoracentesis was ordered urgently and performed , yielding 1500 mL of pleural fluid. Follow-up chest x-ray revealed near complete resolution of pleural effusion. No evidence of pneumothorax. CONSULTANTS: pulmonary Dr. Metcalf ID specialist Dr. Momin print line feeder Dr.De Ferguson director business travel/oncologist Dr. Estrada HOSPITAL COURSE: Patient admitted to telemetry floor. Supplemental oxygen provided and titrated to keep pulse oximetry above 92%. Pulmonary toilet with bronchodilator provided as needed. Patient started on empiric antibiotics per ID specialist recommendation. Blood cultures were negative. Urine culture revealed mixed gram-positive organisms. Mycoplasma pneumonia titer revealed elevated mycoplasma IgG titer , indicating prior exposure. Urine Legionella antigen was negative. Leukocytosis trended down. Follow-up chest x-ray revealed worsening right lung opacity. Patient was discharged on oral Augmentin to complete the course as per ID specialist recommendation. Blood pressure was managed with beta-ilan. Patient was placed on the fluid restriction 1 L a day. 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 Oncologist followed. Leukocytosis was partially due to malignancy and partially due to infectious process. Thrombocytosis was also related to malignancy. Ca 125 severely elevated 4901 ( trended up from prior ) Oncologist recommended to start outpatient chemotherapy , which was discussed with patient and her daughter . Patient and family at this time were declining chemotherapy. Patient and family were prior aware of metastatic breast cancer, and patient recently declined any further intervention s, such as recommended chemotherapy. Home oxygen had been arranged. Patient clinically stabilized and was ready for discharge home with home health services. 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 DISCHARGE INSTRUCTIONS: Patient was discharged home with home health services. Follow up with primary care provider in one week. I have been assigned to dictate discharge summary for this account. I was not involved in the patient's management. I was not involved in the patient's management. Julia Abraham NP Sep 07, 2019 08:40
== END 2019-09-05 20:42 | disposition home health service (06) | DRG 871 ==
LOC: EDBD 13:21 → EMR 14:48 → 2E 14:50 → EDBEDREQ 20:10 → 2E 20:44
PROC: 0W993ZZ Drainage of Right Pleural Cavity, Percutaneous Approach (ICD-10-PCS; principal; 2019-08-31)
DX: A41.9 Sepsis, unspecified organism (principal); J18.9 Pneumonia, unspecified organism; E22.2 Syndrome of inappropriate secretion of antidiuretic hormone; C56.9 Malignant neoplasm of unspecified ovary; C78.2 Secondary malignant neoplasm of pleura; N39.0 Urinary tract infection, site not specified; C78.00 Secondary malignant neoplasm of unspecified lung; C78.7 Secondary malignant neoplasm of liver and intrahepatic bile duct; J91.0 Malignant pleural effusion; J44.1 Chronic obstructive pulmonary disease with (acute) exacerbation; C78.6 Secondary malignant neoplasm of retroperitoneum and peritoneum; J44.9 Chronic obstructive pulmonary disease, unspecified; D47.3 Essential (hemorrhagic) thrombocythemia; I10 Essential (primary) hypertension; Z23 Encounter for immunization
CPT/HCPCS: 36415; 71045; 76942; 80048; 80053; 81003; 82164; 82550; 82553; 82962; 83605; 83690; 83880; 84484; 85025; 85610; 86304; 86738; 87040; 87081; 87086; 90689; 90732; 93005; 97803; 99291; J2405; J3490